=== PATIENT | female | born 1995 | race Caucasian/White ===

== ENCOUNTER → 2017-06-21 13:01 | Outpatient (CLI) | payer MEDICARE, MEDICAID, SELFPAY ==
--- NOTE | 2017-06-21 13:13 | XR_ITS ---
XR foot LT min 3V HISTORY: ITS.REASON: LEFT FOOT PAIN ORDERING PHYSICIAN: Felicia Cox PATIENT AGE: 21 years COMPARISON: None FINDINGS: No fracture or dislocation. No lytic or blastic change. There is normal mineralization.. The joint spaces are well-preserved. No significant degenerative/arthritic changes. No erosive changes evident. IMPRESSION: Negative, no acute finding
== END ==
PROVIDERS: PCP Family Medicine; Visit Provider Nurse Practitioner
DX: M79.672 Pain in left foot (principal)
CPT/HCPCS: 73630

== ENCOUNTER → 2018-04-23 14:34 | Outpatient (CLI) | payer MEDICARE, MEDICAID, SELFPAY ==
--- NOTE | 2018-04-23 14:40 | XR_ITS ---
XR hand RT min 3V HISTORY: Pain and swelling around the first metacarpal ITS.REASON: RT HAND PAIN ORDERING PHYSICIAN: Radha Stratton PATIENT AGE: 22 years COMPARISON: None FINDINGS: There is a faint curvilinear lucency along the dorsal aspect and base of the metacarpal which is probably due to an overlying artifact as it appears to extend beyond the margin of the metacarpal medially. Correlation with patient's area of pain and tenderness needed. No fracture or dislocation. No lytic or blastic change. IMPRESSION: As above, no acute finding
== END ==
PROVIDERS: PCP Nurse Practitioner Family; Visit Provider Nurse Practitioner Family
DX: M79.641 Pain in right hand (principal)
CPT/HCPCS: 73130

== ENCOUNTER → 2018-10-28 15:24 | Outpatient (POV) | payer MEDICARE, MEDICAID, SELFPAY | PROVIDERS: Visit Provider Dermatology | DX: Z00.00 Encounter for general adult medical examination without abnormal findings (principal) ==

== ENCOUNTER → 2019-01-30 09:35 | Outpatient (CLI) | payer MEDICARE, MEDICAID, SELFPAY ==
[2019-01-30 10:44] LABS: Basophils # 0.1 K/mm3 (0-0.2); Basophils % 0.5 % (0.1-2.0); Eosinophils # 0.3 K/mm3 (0.0-0.4); Eosinophils % 3.2 % (0.1-12.0); Hematocrit 31.1 % (37.0-47.0); Hemoglobin 9.1 g/dL (12.2-16.2); Lymphocytes # 3.5 K/mm3 (0.7-4.5); Lymphocytes % 35.2 % (10-50); Mean Corpuscular HGB Conc 29.1 g/dL (31.8-35.4); Mean Corpuscular Hemoglobin 20.1 pg (27.0-31.2); Mean Platelet Volume 7.2 fl (7.4-10.4); Monocytes # 0.7 K/mm3 (0.1-1.0); Neutrophils # 5.3 K/mm3 (1.8-7.8); Neutrophils % 54.1 % (37.0-80.0); Platelet Count 469 K/mm3 (142-424); Red Blood Count 4.51 M/mm3 (4.20-5.40); Red Cell Distribution Width 16.9 % (11.5-17.5); White Blood Count 9.8 K/mm3 (4.8-10.8)
[2019-01-30 11:39] LABS: Alanine Aminotransferase 18 U/L (12-78); Albumin Level 3.3 gm/dL (3.4-5.0); Albumin/Globulin Ratio 0.8 (1.1-1.8); Alkaline Phosphatase 117 U/L (46-116); Anion Gap 11.3 mEq/L (5-15); Aspartate Amino Transferase 3 U/L (15-37); Bilirubin,Total 0.2 mg/dL (0.2-1.0); Blood Urea Nitrogen 14 mg/dL (7-18); Calcium 9.1 mg/dL (8.5-10.1); Carbon Dioxide 28 mmol/L (21.0-32.0); Chloride 105 mmol/L (98-107); Chol/HDL Ratio 3.4 (1-3.5); Cholesterol 143 mg/dL (140-200); Creatinine,Serum 0.76 mg/dL (0.55-1.02); Estimated Glomerular Filt Rate 93 ml/min (>60); GFR (African American) 112 ML/MIN (>60); Globulin 3.9 gm/dl (1.3-3.2); Glucose 90 mg/dL (74-106); HDL Cholesterol 42 mg/dL (29-89); LDL Cholesterol 86 mg/dL (0-130); Potassium 4.3 mmoL/L (3.5-5.1); Sodium 140 mmol/L (136-145); Thyroid Stimulating Hormone 2.95 uIU/ml (0.358-3.740); Total Protein,Serum 7.2 gm/dL (6.4-8.2); Triglycerides 73 mg/dL (30-200); VLDL Cholesterol 15 mg/dL (0-40)
[2019-01-30 13:28] LABS: Hemoglobin A1C 5.8 % (0.0-7.0)
== END ==
PROVIDERS: Visit Provider Psychiatry & Neurology Psychiatry
DX: F41.1 Generalized anxiety disorder (principal); Z79.899 Other long term (current) drug therapy
CPT/HCPCS: 36415; 80053; 80061; 83036; 84443; 85025

== ENCOUNTER → 2019-10-12 09:07 | Outpatient (CLI) | payer MEDICARE, OTHER, SELFPAY ==
--- NOTE | 2019-10-12 09:22 | US_ITS ---
PROCEDURE: US ABDOMEN LIMITED CLINICAL INDICATION: ABD PAIN Right upper quadrant pain COMPARISON: No exams were available for comparison FINDINGS: PANCREAS: Pancreas is not well delineated due to overlying bowel gas. CT or MRI without and with contrast with pancreatic protocol may provide further evaluation if clinically desired. LIVER: No focal liver lesions demonstrated. Homogeneous echogenicity. No intrahepatic biliary ductal dilatation evident. There is appropriate direction of blood flow within a non dilated portal vein RIGHT KIDNEY: Unremarkable. Normal size and echogenicity. No hydronephrosis GALLBLADDER: No gallstones, gallbladder wall thickening, pericholecystic fluid, or biliary dilatation. IMPRESSION: Poor visualization of the pancreas otherwise negative right upper quadrant ultrasound Dictated by: Hi Nava MD 10/12/2019 18:58 Electronically signed by Hi Nava MD in [place] 10/12/2019 18:58
== END ==
PROVIDERS: PCP Nurse Practitioner; Visit Provider Nurse Practitioner Family
DX: R10.11 Right upper quadrant pain (principal); G47.33 Obstructive sleep apnea (adult) (pediatric); R40.0 Somnolence; R51 Headache; G47.00 Insomnia, unspecified; E66.9 Obesity, unspecified
CPT/HCPCS: 76705; G0399

== ENCOUNTER → 2019-11-19 11:13 | Outpatient (CLI) | payer MEDICARE, OTHER, SELFPAY ==
[2019-11-19 11:46] LABS: Basophils # 0.1 K/mm3 (0-0.2); Basophils % 0.6 % (0.1-2.0); Eosinophils # 0.2 K/mm3 (0.0-0.4); Eosinophils % 1.7 % (0.1-12.0); Hematocrit 33.4 % (37.0-47.0); Hemoglobin 10.4 g/dL (12.2-16.2); Lymphocytes # 3.7 K/mm3 (0.7-4.5); Lymphocytes % 29.9 % (10-50); Mean Corpuscular HGB Conc 31.2 g/dL (31.8-35.4); Mean Corpuscular Hemoglobin 22.5 pg (27.0-31.2); Mean Platelet Volume 6.9 fl (7.4-10.4); Monocytes # 0.6 K/mm3 (0.1-1.0); Monocytes % 4.5 % (1.7-9.3); Neutrophils # 7.9 K/mm3 (1.8-7.8); Neutrophils % 63.3 % (37.0-80.0); Platelet Count 480 K/mm3 (142-424); Red Blood Count 4.64 M/mm3 (4.20-5.40); Red Cell Distribution Width 17.4 % (11.5-17.5); White Blood Count 12.5 K/mm3 (4.8-10.8)
[2019-11-19 12:17] LABS: Chloride 102 mmol/L (98-107); Potassium 4.9 mmoL/L (3.5-5.1); Sodium 137 mmol/L (136-145)
[2019-11-19 12:19] LABS: Alanine Aminotransferase 21 U/L (12-78); Alkaline Phosphatase 117 U/L (38-126); Aspartate Amino Transferase 20 U/L (14-36); Bilirubin,Total 0.3 mg/dl (0.2-1.3); Blood Urea Nitrogen 17 mg/dl (7-17); Estimated Glomerular Filt Rate 101 ml/min (>60); GFR (African American) 122 ML/MIN (>60)
[2019-11-19 12:20] LABS: Albumin Level 3.8 g/dl (3.5-5.0); Albumin/Globulin Ratio 1.2 (1.1-1.8); Anion Gap 12.9 mEq/L (5-15); Calcium 9.1 mg/dl (8.4-10.2); Carbon Dioxide 27 mmol/L (22.0-30.0); Globulin 3.3 g/dL (1.3-3.2); Glucose 95 mg/dl (74-100); Iron 30 ug/dL (37-170); Total Protein,Serum 7.1 g/dl (6.3-8.2)
[2019-11-19 12:28] LABS: Total Iron Binding Capacity 465 ug/dL (265-497)
[2019-11-19 12:56] LABS: Ferritin 6.07 ng/ml (6.24-137)
== END ==
PROVIDERS: Visit Provider Internal Medicine Medical Oncology
DX: D50.0 Iron deficiency anemia secondary to blood loss (chronic) (principal)
CPT/HCPCS: 36415; 80053; 82728; 83540; 83550; 85025

== ENCOUNTER 2019-12-02 13:00 | Outpatient (CLI) | payer MEDICARE, OTHER, SELFPAY ==
[2019-12-02 13:27] VITALS: BP 140/92; PULSE 91; RESP 18; TEMP 36.6; O2SAT 98
[2019-12-02 14:06] VITALS: BP 136/80; PULSE 80; RESP 18; O2SAT 97
== END 2019-12-02 14:06 | disposition home or self-care (01) ==
LOC: INF 13:00
PROVIDERS: Visit Provider Internal Medicine Medical Oncology
DX: D50.9 Iron deficiency anemia, unspecified (principal)
CPT/HCPCS: 96365; J1439

== ENCOUNTER 2019-12-09 13:15 | Outpatient (CLI) | payer MEDICARE, OTHER, SELFPAY ==
[2019-12-09 13:43] VITALS: BP 122/66; PULSE 84; RESP 18; TEMP 36.7; O2SAT 99
[2019-12-09 14:15] VITALS: BP 119/72; PULSE 85; RESP 18
== END 2019-12-09 14:25 | disposition home or self-care (01) ==
LOC: INF 13:23
PROVIDERS: Visit Provider Internal Medicine Medical Oncology
DX: D64.9 Anemia, unspecified (principal)
CPT/HCPCS: 96365; J1439

== ENCOUNTER → 2020-02-11 13:58 | Outpatient (CLI) | payer MEDICARE, OTHER, SELFPAY ==
[2020-02-11 14:28] LABS: Basophils # 0.1 K/mm3 (0-0.2); Basophils % 0.6 % (0.1-2.0); Eosinophils # 0.3 K/mm3 (0.0-0.4); Eosinophils % 2.2 % (0.1-12.0); Hematocrit 41.4 % (37.0-47.0); Hemoglobin 13.2 g/dL (12.2-16.2); Lymphocytes # 3.2 K/mm3 (0.7-4.5); Lymphocytes % 27.4 % (10-50); Mean Corpuscular Hemoglobin 27.3 pg (27.0-31.2); Mean Corpuscular Volume 85.4 fl (81-99); Mean Platelet Volume 7.1 fl (7.4-10.4); Monocytes % 8.3 % (1.7-9.3); Neutrophils # 7.1 K/mm3 (1.8-7.8); Neutrophils % 61.5 % (37.0-80.0); Platelet Count 340 K/mm3 (142-424); Red Blood Count 4.84 M/mm3 (4.20-5.40); Red Cell Distribution Width 18.1 % (11.5-17.5); White Blood Count 11.6 K/mm3 (4.8-10.8)
[2020-02-11 15:37] LABS: Chloride 104 mmol/L (98-107)
[2020-02-11 15:38] LABS: Potassium 3.7 mmoL/L (3.5-5.1); Sodium 140 mmol/L (136-145)
[2020-02-11 15:40] LABS: Alanine Aminotransferase 24 U/L (12-78); Aspartate Amino Transferase 23 U/L (14-36); Blood Urea Nitrogen 14 mg/dl (7-17); Estimated Glomerular Filt Rate 121 ml/min (>60); GFR (African American) 146 ML/MIN (>60)
[2020-02-11 15:41] LABS: Albumin/Globulin Ratio 1.3 (1.1-1.8); Alkaline Phosphatase 100 U/L (38-126); Anion Gap 12.7 mEq/L (5-15); Bilirubin,Total 0.3 mg/dl (0.2-1.3); Calcium 9.6 mg/dl (8.4-10.2); Carbon Dioxide 27 mmol/L (22.0-30.0); Globulin 3.2 g/dL (1.3-3.2); Glucose 111 mg/dl (74-100); Iron 91 ug/dL (37-170); Total Protein,Serum 7.2 g/dl (6.3-8.2)
[2020-02-11 16:01] LABS: Total Iron Binding Capacity 305 ug/dL (265-497)
[2020-02-11 16:19] LABS: Ferritin 226 ng/ml (6.24-137)
== END ==
PROVIDERS: Visit Provider Internal Medicine Medical Oncology
DX: D50.9 Iron deficiency anemia, unspecified (principal)
CPT/HCPCS: 36415; 80053; 82728; 83540; 83550; 85025

== ENCOUNTER 2020-06-26 19:12 | Emergency (ER) | payer MEDICARE, OTHER, SELFPAY ==
[2020-06-26 19:13] VITALS: BP 160/80; PULSE 130; RESP 16; TEMP 37; O2SAT 97; BMI 45.7
[2020-06-26 19:30] VITALS: BP 148/90; PULSE 118; RESP 17; O2SAT 98
[2020-06-26 19:44] LABS: Microscopic, Urine URINE MICROSCOPIC (MICROSCOPIC)
[2020-06-26 19:45] LABS: Basophils # 0.1 K/mm3 (0-0.2); Basophils % 0.4 % (0.1-2.0); Eosinophils # 0.3 K/mm3 (0.0-0.4); Eosinophils % 1.9 % (0.1-12.0); Hematocrit 35.7 % (37.0-47.0); Hemoglobin 11.1 g/dL (12.2-16.2); Lymphocytes # 4.1 K/mm3 (0.7-4.5); Mean Corpuscular HGB Conc 31.2 g/dL (31.8-35.4); Mean Corpuscular Hemoglobin 26.3 pg (27.0-31.2); Mean Corpuscular Volume 84.5 fl (81-99); Monocytes # 0.7 K/mm3 (0.1-1.0); Monocytes % 4.8 % (1.7-9.3); Neutrophils # 9.9 K/mm3 (1.8-7.8); Neutrophils % 65.9 % (37.0-80.0); Platelet Count 423 K/mm3 (142-424); Red Blood Count 4.23 M/mm3 (4.20-5.40); Red Cell Distribution Width 13.7 % (11.5-17.5); White Blood Count 15.1 K/mm3 (4.8-10.8)
[2020-06-26 19:46] LABS: Chloride 109 mmol/L (98-107); Potassium 3.7 mmoL/L (3.5-5.1); Sodium 141 mmol/L (136-145)
[2020-06-26 19:48] LABS: MANUAL DIFFERENTIAL MANUAL DIFFERENTIAL (MANUAL DIFF)
[2020-06-26 19:49] LABS: Alanine Aminotransferase 23 U/L (12-78); Albumin Level 4.2 g/dl (3.5-5.0); Albumin/Globulin Ratio 1.1 (1.1-1.8); Alkaline Phosphatase 116 U/L (38-126); Anion Gap 9.7 mEq/L (5-15); Aspartate Amino Transferase 30 U/L (14-36); Bilirubin,Total 0.5 mg/dl (0.2-1.3); Blood Urea Nitrogen 14 mg/dl (7-17); Carbon Dioxide 26 mmol/L (22.0-30.0); Creatinine Clearance Estimated 84 mL/min (50-200); Estimated Glomerular Filt Rate 87 ml/min (>60); GFR (African American) 105 ML/MIN (>60); Globulin 3.9 g/dL (1.3-3.2); Total Protein,Serum 8.1 g/dl (6.3-8.2)
[2020-06-26 19:50] LABS: Appearance,Urine CLOUDY (Clear); Bilirubin,Urine Negative (Negative); Blood, Urine 3+ (Negative); Calcium 9.6 mg/dl (8.4-10.2); Color,Urine RED (Yellow); Glucose 123 mg/dl (74-100); Glucose,Urine (UA) Negative (Negative); Ketones,Urine Negative (Negative); Leukocyte Esterase,Urine Negative (Negative); Nitrate,Urine Negative (Negative); Protein,Urine 1+ (Negative); Specific Gravity, Urine >= 1.030 (1.005-1.030); Urobilinogen,Urine 0.2 EU/dl (0.2)
[2020-06-26 19:51] LABS: RBC,Urine TNTC #/hpf (0-3); Urine Pregnancy, HCG Qual. Negative (Negative)
[2020-06-26 19:55] LABS: C-Reactive Protein 24.3 mg/L (0-4)
[2020-06-26 19:58] LABS: Eosinophils % 1 % (0-3); Hypochromasia 1+; Lymphocytes % 26 % (10-50); Monocytes % 5 % (2-9); Neutrophils % 67 % (42-76); Platelet Estimate Normal; Total Cells Counted 100
[2020-06-26 20:00] VITALS: BP 138/92; PULSE 112; RESP 15; O2SAT 99
[2020-06-26 20:08] LABS: Procalcitonin 0.043 ng/mL (0.0-2.0)
[2020-06-26 20:09] LABS: Erythrocyte Sedimentation Rate 111 mm/hr (0-20)
--- NOTE | 2020-06-26 20:09 | HMH.EDUROGF ---
ED Disposition Clinical Impression: Dysfunctional uterine bleeding Disposition: Home, Self-Care Condition on Discharge: Good Instructions: DI for Vaginal Bleeding Additional Instructions: call pcp and dr mcbride for follow up Referrals: Christiane Felix APRN [Primary Care Provider] - Jagdish Mcbride MD [Staff Physician] - - Critical Care Critical Care Time: No Attestation: On 06/26/20, the high probability of a clinically significant, sudden or life threatening deterioration of the following system(s) required my full and direct attention, intervention and personal management. The time I documented below is in addition to time spent performing reported procedures but includes the following listed in this critical care notation. Medical Decision Making - Medical Records Medical records reviewed: Yes: I reviewed the patient's medical records. - Luis Alberto Inquiry Pt receiving controlled substance: No Vital Signs: 06/26/20 19:13 06/26/20 19:30 06/26/20 20:00 Temperature 98.6 F Temperature Source Oral Pulse Rate [Right] 130 H 118 H 112 H Respiratory Rate 16 17 15 Blood Pressure [Orthostatic Lying] Blood Pressure [Orthostatic Sitting] Blood Pressure [Orthostatic Standing] Blood Pressure [Right Arm] 160/80 H 148/90 H 138/92 H Blood Pressure Mean [Right Arm] 106 109 107 Blood Pressure Source [Right Arm] Manual Cuff/ Auscultation Manual Cuff/ Auscultation Manual Cuff/ Auscultation Blood Pressure Position [Right Arm] Supine Supine 02 Sat by Pulse Oximetry 97 98 99 Oxygen Delivery Method Room Air Room Air 06/26/20 20:22 Temperature Temperature Source Pulse Rate [Right] Respiratory Rate Blood Pressure [Orthostatic Lying] 142/90 H Blood Pressure [Orthostatic Sitting] 138/94 H Blood Pressure [Orthostatic Standing] 130/92 H Blood Pressure [Right Arm] Blood Pressure Mean [Right Arm] Blood Pressure Source [Right Arm] Blood Pressure Position [Right Arm] 02 Sat by Pulse Oximetry Oxygen Delivery Method - Lab Data Lab results reviewed: Yes: I reviewed the patient's lab results. Lab Results 06/26/20 19:25: WBC 15.1 H, RBC 4.23, Hgb 11.1 L, Hct 35.7 L, MCV 84.5, MCH 26.3 L, MCHC 31.2 L, RDW 13.7, Plt Count 423, MPV 7.0 L, Neut % (Auto) 65.9, Lymph % (Auto) 27.0, Mower % (Auto) 4.8, Eos % (Auto) 1.9, Baso % (Auto) 0.4, Neut # (Auto) 9.9 H, Lymph # (Auto) 4.1, Mower # (Auto) 0.7, Eos # (Auto) 0.3, Baso # (Auto) 0.1, Total Counted 100, Neutrophils % (Manual) 67, Band Neutrophils % 1.0, Lymphocytes % (Manual) 26, Monocytes % (Manual) 5, Eosinophils % (Manual) 1, Platelet Estimate Normal, Hypochromasia 1+ 06/26/20 19:25: Sodium 141, Potassium 3.7, Chloride 109 H, Carbon Dioxide 26, Anion Gap 9.7, BUN 14, Creatinine 0.80, Estimated Creat Clear 84, Estimated GFR 87, Est GFR ( Amer) 105, Glucose 123 H, Calcium 9.6, Total Bilirubin 0.5, AST 30, ALT 23, Alkaline Phosphatase 116, C-Reactive Protein 24.3 H, Total Protein 8.1, Albumin 4.2, Globulin 3.9 H, Albumin/Globulin Ratio 1.1 06/26/20 19:25: Urine Color Red, Urine Appearance Cloudy, Urine pH 6.0, Ur Specific [place] >= 1.030, Urine Protein 1+, Urine Glucose (UA) Negative, Urine Ketones Negative, Urine Blood 3+, Urine Nitrate Negative, Urine Bilirubin Negative, Urine Urobilinogen 0.2, Ur Leukocyte Esterase Negative, Urine RBC Tntc, Urine WBC 3-5, Ur Squamous Epith Cells 3-5 06/26/20 19:25: ESR 111 H 06/26/20 19:25: Urine HCG, Qual Negative 06/26/20 19:25: Procalcitonin 0.043 Result diagrams: 06/26/20 19:25 06/26/20 19:25 Orders (Tests/Meds): ORDERS Category Date Time Status CT abdomen pelvis wo con Stat Cat Scan 06/26/20 20:14 Taken - CT Data CT Scan: Abdomen, Pelvis Time Received: 21:[address] Reviewed: Yes: I have viewed the radiologist's interpretation Preliminary Findings: Normal/NAD - Reevaluation(s) Time: 21:48 Reevaluation #1: doing ok Medical Decision Narrative: call dr mcbride and cabrera compliant with meds Female
--- NOTE | 2020-06-26 20:14 | CT_ITS ---
PROCEDURE: CT ABDOMEN PELVIS WO CON CLINICAL INDICATION: vaginal bleeding Heavy vaginal bleeding COMPARISON: CT ABDPELW CT ABD PELVIS W/ CONTRAST from 04/02/2015 TECHNIQUE: Axial images obtained with sagittal and coronal reformats. All CT scans at the facility use one or more dose reduction, viz: automated exposure control, ma/kV adjustment per patient size (including targeted exams where dose is matched to indication, i.e. head), or iterative reconstruction technique. FINDINGS: LOWER THORAX: No acute finding ABDOMEN & PELVIS: The liver, spleen, adrenal glands, pancreas, kidneys and gallbladder have an unremarkable CT appearance. Prior appendectomy. No intestinal obstruction or free air. There is asymmetrical enlargement of the right ovary which measures 3.6 cm possibly due to underlying ovarian cyst. Pelvic ultrasound may confirm. No abnormal fluid collections. Scattered small nodes are present in the inguinal regions. No acute bony findings. IMPRESSION: 1. No acute finding. 2. Asymmetrical enlargement of the right ovary. Pelvic ultrasound may provide further evaluation. Dictated by: Hi Nava MD 06/27/2020 08:59 Hi Nava MD in [place] 06/27/2020 08:59
[2020-06-26 20:22] VITALS: BP 130/92; BP 138/94; BP 142/90
[2020-06-26 21:55] VITALS: BP 138/78; PULSE 110; RESP 14; TEMP 37.1; O2SAT 97
== END 2020-06-26 21:58 | disposition home or self-care (01) ==
PROVIDERS: Emergency Provider Emergency Medicine; PCP Nurse Practitioner Family
DX: N93.8 Other specified abnormal uterine and vaginal bleeding (principal); D64.9 Anemia, unspecified; Z79.899 Other long term (current) drug therapy
CPT/HCPCS: 74176; 80053; 81001; 81025; 84145; 85007; 85025; 85651; 86140; 99284

== ENCOUNTER → 2020-07-05 10:25 | Outpatient (CLI) | payer MEDICARE, OTHER, SELFPAY ==
--- NOTE | 2020-07-05 10:29 | US_ITS ---
PROCEDURE: US TRANSVAGINAL CLINICAL INDICATION: ABN UTERINE BLEEDING COMPARISON: No exams were available for comparison FINDINGS: UTERUS: 9cm x 6cmx 5cm with a combined endometrial thickness of 4.9mm LEFT OVARY: 1kig1pkh6.4cm with a volume of 2.4ml. RIGHT OVARY: [id number] with a volume of 34.2ml. There is a 4 cm right ovarian cyst which has benign features. No cul-de-sac fluid. IMPRESSION: 4 cm right follicular ovarian cyst Dictated by: Hi Nava MD 07/05/2020 18:00 Hi Nava MD in [place] 07/05/2020 18:00
== END ==
PROVIDERS: PCP Nurse Practitioner Family; Visit Provider Nurse Practitioner Family
DX: N93.8 Other specified abnormal uterine and vaginal bleeding (principal)
CPT/HCPCS: 76830

== ENCOUNTER → 2020-08-15 15:49 | Outpatient (CLI) | payer MEDICARE, OTHER, SELFPAY ==
[2020-08-15 16:19] LABS: Basophils # 0.1 K/mm3 (0-0.2); Basophils % 0.5 % (0.1-2.0); Eosinophils # 0.3 K/mm3 (0.0-0.4); Eosinophils % 2.4 % (0.1-12.0); Hematocrit 28.7 % (37.0-47.0); Hemoglobin 8.7 g/dL (12.2-16.2); Lymphocytes # 3.5 K/mm3 (0.7-4.5); Lymphocytes % 30.4 % (10-50); Mean Corpuscular HGB Conc 30.1 g/dL (31.8-35.4); Mean Corpuscular Hemoglobin 21.1 pg (27.0-31.2); Mean Platelet Volume 6.8 fl (7.4-10.4); Monocytes # 0.6 K/mm3 (0.1-1.0); Monocytes % 5.2 % (1.7-9.3); Neutrophils # 7.1 K/mm3 (1.8-7.8); Neutrophils % 61.6 % (37.0-80.0); Platelet Count 598 K/mm3 (142-424); Red Cell Distribution Width 16.4 % (11.5-17.5); White Blood Count 11.5 K/mm3 (4.8-10.8)
[2020-08-15 17:27] LABS: Iron 25 ug/dL (37-170)
[2020-08-15 17:35] LABS: Total Iron Binding Capacity 457 ug/dL (265-497)
[2020-08-15 18:01] LABS: Ferritin 5.88 ng/ml (6.24-137)
== END ==
PROVIDERS: Visit Provider Internal Medicine Medical Oncology
DX: E61.1 Iron deficiency (principal)
CPT/HCPCS: 36415; 82728; 83540; 83550; 85025

== ENCOUNTER 2020-08-24 13:27 | Outpatient (CLI) | payer MEDICARE, OTHER, SELFPAY ==
[2020-08-24 13:39] VITALS: BP 129/74; PULSE 84; RESP 16; TEMP 36.7; O2SAT 100
[2020-08-24 14:20] VITALS: BP 123/76; PULSE 86; RESP 16; TEMP 36.8; O2SAT 100
== END 2020-08-24 14:25 | disposition home or self-care (01) ==
LOC: INF 13:27
PROVIDERS: Visit Provider Internal Medicine Medical Oncology
DX: D50.9 Iron deficiency anemia, unspecified (principal)
CPT/HCPCS: 96365; J1439

== ENCOUNTER 2020-08-31 13:00 | Outpatient (CLI) | payer MEDICARE, OTHER, SELFPAY ==
[2020-08-31 13:26] VITALS: BP 142/81; PULSE 81; RESP 17; TEMP 36.8; O2SAT 98
[2020-08-31 14:37] VITALS: BP 137/76; PULSE 83; O2SAT 97
== END 2020-08-31 14:41 | disposition home or self-care (01) ==
LOC: INF 13:00
PROVIDERS: Visit Provider Internal Medicine Medical Oncology
DX: N92.4 Excessive bleeding in the premenopausal period (principal); D50.0 Iron deficiency anemia secondary to blood loss (chronic)
CPT/HCPCS: 96365; J1439

== ENCOUNTER → 2020-10-24 14:11 | Outpatient (CLI) | payer MEDICARE, OTHER, SELFPAY ==
[2020-10-24 15:03] LABS: Basophils % 0.6 % (0.1-2.0); Eosinophils # 0.3 K/mm3 (0.0-0.4); Eosinophils % 3.2 % (0.1-12.0); Hematocrit 27.1 % (37.0-47.0); Hemoglobin 8.5 g/dL (12.2-16.2); Lymphocytes # 2.2 K/mm3 (0.7-4.5); Lymphocytes % 27.8 % (10-50); Mean Corpuscular HGB Conc 31.2 g/dL (31.8-35.4); Mean Corpuscular Hemoglobin 24.8 pg (27.0-31.2); Mean Corpuscular Volume 79.5 fl (81-99); Mean Platelet Volume 7.7 fl (7.4-10.4); Monocytes # 0.4 K/mm3 (0.1-1.0); Monocytes % 5.5 % (1.7-9.3); Platelet Count 565 K/mm3 (142-424); Red Blood Count 3.41 M/mm3 (4.20-5.40); Red Cell Distribution Width 19.8 % (11.5-17.5); White Blood Count 7.9 K/mm3 (4.8-10.8)
[2020-10-24 15:10] LABS: Chloride 108 mmol/L (98-107); Potassium 4.3 mmoL/L (3.5-5.1); Sodium 140 mmol/L (136-145)
[2020-10-24 15:13] LABS: Alanine Aminotransferase 25 U/L (12-78); Albumin Level 4.1 g/dl (3.5-5.0); Albumin/Globulin Ratio 1.4 (1.1-1.8); Alkaline Phosphatase 119 U/L (38-126); Anion Gap 13.3 mEq/L (5-15); Aspartate Amino Transferase 29 U/L (14-36); Bilirubin,Total 0.4 mg/dl (0.2-1.3); Blood Urea Nitrogen 11 mg/dl (7-17); Calcium 9.6 mg/dl (8.4-10.2); Carbon Dioxide 23 mmol/L (22.0-30.0); Estimated Glomerular Filt Rate 120 ml/min (>60); GFR (African American) 145 ML/MIN (>60); Glucose 144 mg/dl (74-100); Iron 31 ug/dL (37-170); Total Protein,Serum 7.1 g/dl (6.3-8.2)
[2020-10-24 15:23] LABS: Total Iron Binding Capacity 418 ug/dL (265-497)
[2020-10-27 13:44] LABS: Ferritin 23.4 ng/ml (6.24-137)
== END ==
PROVIDERS: Visit Provider Internal Medicine Medical Oncology
DX: D50.0 Iron deficiency anemia secondary to blood loss (chronic) (principal)
CPT/HCPCS: 36415; 80053; 82728; 83540; 83550; 85025

== ENCOUNTER 2020-11-07 13:27 | Outpatient (CLI) | payer MEDICARE, OTHER, SELFPAY ==
[2020-11-07 14:00] VITALS: BP 154/95; PULSE 88; RESP 18; TEMP 36.6
[2020-11-07 14:32] VITALS: BP 138/81; PULSE 83; RESP 18
== END 2020-11-07 14:38 | disposition home or self-care (01) ==
LOC: INF 13:27
PROVIDERS: Visit Provider Internal Medicine Medical Oncology
DX: D50.0 Iron deficiency anemia secondary to blood loss (chronic) (principal)
CPT/HCPCS: 96365; J1439

== ENCOUNTER 2020-11-18 13:36 | Outpatient (CLI) | payer MEDICARE, OTHER, SELFPAY ==
[2020-11-18 13:51] VITALS: BP 120/67; PULSE 66; RESP 17; O2SAT 100
[2020-11-18 14:48] VITALS: BP 125/61; PULSE 61; RESP 17; O2SAT 100
== END 2020-11-18 14:50 | disposition home or self-care (01) ==
LOC: INF 13:42
PROVIDERS: Visit Provider Internal Medicine Medical Oncology
DX: D50.9 Iron deficiency anemia, unspecified (principal); D50.0 Iron deficiency anemia secondary to blood loss (chronic)
CPT/HCPCS: 96365; J1439

== ENCOUNTER → 2020-12-15 12:19 | Outpatient (CLI) | payer MEDICARE, OTHER, SELFPAY ==
[2020-12-15 12:40] LABS: Basophils # 0.1 K/mm3 (0-0.2); Basophils % 0.7 % (0.1-2.0); Eosinophils # 0.4 K/mm3 (0.0-0.4); Eosinophils % 3.5 % (0.1-12.0); Hematocrit 37.9 % (37.0-47.0); Hemoglobin 12.8 g/dL (12.2-16.2); Lymphocytes # 2.9 K/mm3 (0.7-4.5); Lymphocytes % 25.1 % (10-50); Mean Corpuscular HGB Conc 33.7 g/dL (31.8-35.4); Mean Corpuscular Hemoglobin 26.6 pg (27.0-31.2); Mean Corpuscular Volume 78.8 fl (81-99); Mean Platelet Volume 7.1 fl (7.4-10.4); Monocytes # 0.5 K/mm3 (0.1-1.0); Monocytes % 4.1 % (1.7-9.3); Neutrophils # 7.6 K/mm3 (1.8-7.8); Neutrophils % 66.5 % (37.0-80.0); Platelet Count 368 K/mm3 (142-424); Red Blood Count 4.82 M/mm3 (4.20-5.40); White Blood Count 11.4 K/mm3 (4.8-10.8)
[2020-12-15 13:41] LABS: Iron 69 ug/dL (37-170)
[2020-12-15 13:50] LABS: Total Iron Binding Capacity 291 ug/dL (265-497)
[2020-12-15 14:16] LABS: Ferritin 257 ng/ml (6.24-137)
== END ==
PROVIDERS: Visit Provider Internal Medicine Medical Oncology
DX: D50.0 Iron deficiency anemia secondary to blood loss (chronic) (principal)
CPT/HCPCS: 36415; 82728; 83540; 83550; 85025

== ENCOUNTER → 2022-03-23 12:20 | Outpatient (CLI) | payer MEDICARE, OTHER, SELFPAY ==
--- NOTE | 2022-03-23 12:30 | XR_ITS ---
FINAL REPORT CLINICAL HISTORY: LUMBAGO W/JAIME SCIATICA, no injury FINDINGS: LUMBAR SPINE Five views were obtained. There is no acute fracture. There is no malalignment. The disc spaces are preserved. There is no soft tissue abnormality. IMPRESSION: No acute bony abnormality. Reviewed, Interpreted and Dictated by Will De Guzman MD Transcribed by Elis Botello Authenticated and . [facility]
[2022-03-23 14:28] LABS: Hemoglobin A1C 5.6 % (4.0-6.0)
[2022-03-23 15:01] LABS: Alanine Aminotransferase 18 U/L (12-78); Albumin/Globulin Ratio 1.3 (1.1-1.8); Alkaline Phosphatase 141 U/L (38-126); Anion Gap 13.5 mEq/L (5-15); Aspartate Amino Transferase 21 U/L (14-36); Bilirubin,Total 0.3 mg/dl (0.2-1.3); Blood Urea Nitrogen 16 mg/dl (7-17); Calcium 9.7 mg/dl (8.4-10.2); Carbon Dioxide 30 mmol/L (22.0-30.0); Chloride 102 mmol/L (98-107); Cholesterol 191 mg/dl (140-200); Estimated Glomerular Filt Rate 85 ml/min (>60); GFR (African American) 103 ML/MIN (>60); Glucose 90 mg/dl (74-100); HDL Cholesterol 38 mg/dl (40-60); Potassium 4.5 mmoL/L (3.5-5.1); Sodium 141 mmol/L (136-145); Triglycerides 125 mg/dl (30-150); VLDL Cholesterol 25 mg/dL (0-40)
[2022-03-23 15:12] LABS: Direct LDL Cholesterol 109.44 mg/dL (100-129)
[2022-03-23 15:18] LABS: Free T4 (Free Thyroxine) 1.06 ng/dl (0.78-2.19)
[2022-03-23 15:32] LABS: Thyroid Stimulating Hormone 1.26 uIU/mL (0.465-4.68)
[2022-03-25 07:29] LABS: Triiodothyronine (T3) Free 3.1 pg/mL (2.0-4.4)
== END ==
PROVIDERS: PCP Nurse Practitioner Family; Visit Provider Nurse Practitioner Family
DX: R73.9 Hyperglycemia, unspecified (principal); E78.2 Mixed hyperlipidemia; R63.5 Abnormal weight gain; Z68.42 Body mass index [BMI] 45.0-49.9, adult; M54.42 Lumbago with sciatica, left side; M54.41 Lumbago with sciatica, right side
CPT/HCPCS: 36415; 72110; 80053; 80061; 83036; 84439; 84443; 84481

== ENCOUNTER 2022-04-11 13:51 | Outpatient (RCR) | payer MEDICARE, OTHER, SELFPAY | END 2022-04-11 13:55 | disposition home or self-care (01) | LOC: PT 13:51 | PROVIDERS: PCP Nurse Practitioner Family; Visit Provider Nurse Practitioner Family | DX: M54.42 Lumbago with sciatica, left side (principal) | CPT/HCPCS: 97163 ==

== ENCOUNTER → 2022-08-27 15:59 | Outpatient (CLI) | payer MEDICARE, OTHER, SELFPAY ==
--- NOTE | 2022-08-27 16:08 | XR_ITS ---
PROCEDURE INFORMATION: Exam: XR Entire Spine Exam date and time: 08/27/2022 4:29 PM Age: 26 years old Clinical indication: Low back pain; Patient HX: Pain along thoracic and lumbar spine area. No known injury. ; Additional info: Back pain left side TECHNIQUE: Imaging protocol: XR of the entire spine. Evaluation for scoliosis or surgical evaluation. Views: 6 or more views. COMPARISON: CR XR LUMBAR SPINE MIN 4V 03/23/2022 12:32 PM FINDINGS: Bones/joints: The cervicothoracic junction is not optimally visualized on the lateral view. As seen, vertebral body heights appear preserved. No compression fractures. The pedicles are intact. No significant degenerative changes involve the visualized thoracolumbar spine. No significant scoliosis is identified. There is no evidence of acute fracture. There is very slight retrolisthesis of L5 on S1. There is also a mild decrease in normal lumbar lordotic curvature. No spondylitic defects. Visualized sacroiliac joints appear intact. Lungs: Lung volumes are diminished. The lungs appear clear. No focal areas of consolidation. Pleural spaces: No pleural effusions. Negative for pneumothorax. Heart/Mediastinum: Cardiac silhouette and pulmonary vasculature are within range of normal. Soft tissues: Paraspinal soft tissues are within range of normal. Visualized bowel gas pattern is within range of normal. IMPRESSION: 1. No significant scoliosis. 2. No significant degenerative changes. 3. Trace retrolisthesis of L5 on S1 without spondylitic defects.
== END ==
PROVIDERS: PCP Nurse Practitioner Family; Visit Provider Nurse Practitioner Family
DX: M54.6 Pain in thoracic spine (principal); M54.42 Lumbago with sciatica, left side
CPT/HCPCS: 72084

== ENCOUNTER → 2022-09-05 12:51 | Outpatient (CLI) | payer MEDICARE, OTHER, SELFPAY ==
--- NOTE | 2022-09-05 | MR_ITS ---
FINAL REPORT CLINICAL HISTORY: .LOW BACK PAIN INTO RIGHT LEG, NO INJURY FINDINGS: Multiplanar MR imaging of the lumbar spine was performed without contrast. On the sagittal T2-weighted images, abnormal decreased signal is seen at L5-S1. The vertebrae are of normal height. The vertebral alignment is normal. L1-2: There is no significant canal stenosis or neural foraminal narrowing. L2-3: There is no significant canal stenosis or neural foraminal narrowing. L3-4: There is no significant canal stenosis or neural foraminal narrowing. L4-5: There is no significant canal stenosis or neural foraminal narrowing. L5-S1: There is no significant canal stenosis or neural foraminal narrowing. IMPRESSION: Degenerative disc disease at L5-S1 without significant spinal or neural foraminal compromise. Reviewed, Interpreted and Dictated by Will De Guzman MD Transcribed by Shadia Beth Authenticated and [facility]
--- NOTE | 2022-09-05 | MR_ITS ---
FINAL REPORT CLINICAL HISTORY: .LOW BACK PAIN INTO RIGHT LEG, NO INJURY FINDINGS: Multiplanar MR imaging of the thoracic spine was performed without contrast. On the sagittal T2-weighted images, no significant disc degeneration is identified. There is no evidence of fracture. The vertebral alignment is normal. Thoracic cord demonstrates normal signal and configuration. There is no evidence of canal stenosis or cord compression. On the axial images, no focal disc protrusion is identified. There is no evidence of significant canal stenosis. No paraspinous soft tissue abnormality is seen. IMPRESSION: Unremarkable thoracic spine without evidence of acute bony abnormality, disc protrusion or canal stenosis. Reviewed, Interpreted and Dictated by Will De Guzman MD Transcribed by Shadia Beth Authenticated and [facility]
== END ==
PROVIDERS: PCP Nurse Practitioner Family; Visit Provider Nurse Practitioner Family
DX: M54.6 Pain in thoracic spine (principal); M54.42 Lumbago with sciatica, left side
CPT/HCPCS: 72146; 72148; 76376

== ENCOUNTER → 2022-10-26 13:05 | Outpatient (CLI) | payer MEDICARE, OTHER, SELFPAY ==
--- NOTE | 2022-10-26 13:05 | US_ITS ---
PROCEDURE: US TRANSVAGINAL CLINICAL INDICATION: US TV for Irregular Bleeding, check IUD placement COMPARISON: No exams were available for comparison FINDINGS: UTERUS: 9cm x 5cmx 4cm with a combined endometrial thickness of 5.3mm. AN IUD IS NOT PRESENT WITHIN THE ENDOMETRIAL CAVITY. LEFT OVARY: 2fyc3fzw6.8cm with a volume of 4.7ml.The left ovary has a polycystic appearance. RIGHT OVARY: 5cmx 1xev6an with a volume of 25.5ml. There is a follicle on the right ovary measuring 2.7 cm. Both ovaries are seen and appear normal. Doppler flow to both ovaries are seen. There is no fluid in the cul-de-sac. IMPRESSION: 1. The uterus is anteverted and normal in shape and size with an endometrium at 5.3 millimeters. 2. THERE IS NO IUD PRESENT WITHIN THE ENDOMETRIAL CAVITY. 3. The left ovary has a polycystic appearance, the right ovary has a 2.7 centimeter follicle. 4. There is no fluid in the cul-de-sac. Dictated by: Jagdish Mcbride MD 10/27/2022 15:29 Jagdish Mcbride MD in [place] 10/27/2022 15:29
== END ==
PROVIDERS: PCP Nurse Practitioner Family; Visit Provider Nurse Practitioner Obstetrics & Gynecology
DX: N92.6 Irregular menstruation, unspecified (principal); Z87.42 Personal history of other diseases of the female genital tract; Z97.5 Presence of (intrauterine) contraceptive device
CPT/HCPCS: 76830

== ENCOUNTER → 2023-02-14 09:59 | Outpatient (CLI) | payer MEDICARE, OTHER, SELFPAY ==
[2023-02-14 10:21] LABS: Basophils # 0.1 K/mm3 (0-0.2); Basophils % 0.6 % (0.1-2.0); Eosinophils # 0.3 K/mm3 (0.0-0.4); Eosinophils % 2.9 % (0.1-12.0); Hematocrit 31.2 % (37.0-47.0); Hemoglobin 9.7 g/dL (12.2-16.2); Lymphocytes % 26.1 % (10-50); Mean Corpuscular HGB Conc 31.2 g/dL (31.8-35.4); Mean Corpuscular Hemoglobin 19.8 pg (27.0-31.2); Mean Corpuscular Volume 63.3 fl (81-99); Mean Platelet Volume 7.4 fl (7.4-10.4); Monocytes # 0.7 K/mm3 (0.1-1.0); Monocytes % 5.6 % (1.7-9.3); Neutrophils # 7.4 K/mm3 (1.8-7.8); Neutrophils % 64.8 % (37.0-80.0); Platelet Count 538 K/mm3 (142-424); Red Blood Count 4.92 M/mm3 (4.20-5.40); Red Cell Distribution Width 23.5 % (11.5-17.5); White Blood Count 11.5 K/mm3 (4.8-10.8)
[2023-02-14 19:48] LABS: Ferritin 20.2 ng/ml (6.24-137)
[2023-02-14 21:00] LABS: Iron 27 ug/dL (37-170)
[2023-02-14 21:10] LABS: Total Iron Binding Capacity 438 ug/dL (265-497)
== END ==
PROVIDERS: PCP Nurse Practitioner; Visit Provider Internal Medicine Medical Oncology
DX: D50.9 Iron deficiency anemia, unspecified (principal)
CPT/HCPCS: 36415; 82728; 83540; 83550; 85025

== ENCOUNTER 2023-02-19 11:04 | Outpatient (CLI) | payer MEDICARE, OTHER, SELFPAY ==
[2023-02-19 11:22] VITALS: BP 135/75; PULSE 78; RESP 18; TEMP 36.6; O2SAT 96
[2023-02-19] MEDS: IRON SUCROSE COMPLEX 200 MG in 0.9 % SODIUM CHLORIDE 100 ML 220 MG IV (11:22)
[2023-02-19] MEDS: 0.9 % SODIUM CHLORIDE 50 ML IV (11:22)
[2023-02-19 12:05] VITALS: BP 131/71; PULSE 77; RESP 18; O2SAT 97
== END 2023-02-19 12:05 | disposition home or self-care (01) ==
LOC: INF 11:06
PROVIDERS: PCP Nurse Practitioner; Visit Provider Internal Medicine Medical Oncology
DX: N92.0 Excessive and frequent menstruation with regular cycle; D64.9 Anemia, unspecified; T45.4X5A Adverse effect of iron and its compounds, initial encounter; D50.0 Iron deficiency anemia secondary to blood loss (chronic)
CPT/HCPCS: 96365; J1756

== ENCOUNTER 2023-02-26 10:59 | Outpatient (CLI) | payer MEDICARE, OTHER, SELFPAY ==
[2023-02-26 11:23] VITALS: BP 124/89; PULSE 80; RESP 18; TEMP 36.2; O2SAT 100
[2023-02-26] MEDS: IRON SUCROSE COMPLEX 200 MG in 0.9 % SODIUM CHLORIDE 100 ML 220 MG IV (11:23)
[2023-02-26] MEDS: SODIUM CHLORIDE 0.9% 50ML BAG 50 ML IV (11:23)
[2023-02-26 12:13] VITALS: BP 129/78; PULSE 72; RESP 18; O2SAT 100
== END 2023-02-26 12:19 | disposition home or self-care (01) ==
LOC: INF 11:00
PROVIDERS: PCP Nurse Practitioner; Visit Provider Internal Medicine Medical Oncology
DX: N92.0 Excessive and frequent menstruation with regular cycle; D64.9 Anemia, unspecified; D75.838 Other thrombocytosis; T45.4X5A Adverse effect of iron and its compounds, initial encounter; D50.0 Iron deficiency anemia secondary to blood loss (chronic)
CPT/HCPCS: 96365; J1756

== ENCOUNTER 2023-03-02 09:27 | Emergency (ER) | payer MEDICARE, OTHER, SELFPAY ==
[2023-03-02 09:28] VITALS: BP 150/103; PULSE 105; RESP 16; TEMP 36.9; O2SAT 100; BMI 50.3
--- NOTE | 2023-03-02 09:44 | PC.NURSE ---
Dr. Vargas at [facility] for pt eval
[2023-03-02 09:45] VITALS: PULSE 90; O2SAT 100
--- NOTE | 2023-03-02 09:48 | HMH.EDGENADL ---
Discharge Plan Disposition Patient Disposition: Home, Self-Care Prescriptions Prescriptions: New methocarbamol 500 mg tablet 1,000 mg PO Q8H PRN (Reason: Muscle Spasms) Qty: 18 0RF No Action sertraline 50 mg tablet 50 mg PO DAILY buspirone 5 mg tablet 5 mg PO DAILY Mirena 21 mcg/24 hours (8 yrs) 52 mg intrauterine device 1 device intrauterine CONT ferrous sulfate [FeroSul] 325 mg (65 mg iron) tablet 325 mg PO DAILY folic acid 1 mg tablet 1 mg PO DAILY cyanocobalamin (vitamin B-12) 1,000 mcg tablet extended release 1,000 mcg PO DAILY naproxen 500 mg tablet 500 mg PO BID Qty: 60 1RF Referrals Follow up/Referrals: Jasmin Naik APRN [Primary Care Provider] - See instructions Activity Restrictions/Add. Instructions Additional Instructions/Restrictions: At this time it was felt you are safe to be discharged home. If new or worsening symptoms please do not hesitate to return the emergency department. If symptoms persist please follow-up with your family doctor as you are able. Please take your medication as prescribed. Clinical Impressions Clinical Impression: Leg pain Discharge ED Provider: Richie Vargas General Adult HPI General Chief complaint: PAIN Stated complaint: bilateral leg pain and spasms, no accident Time Seen by Provider: 03/02/23 09:30 Mode of Arrival: Ambulatory Source of Information: Patient Limitations: No Limitations Description of Symptoms (Recalled from ER Triage Doc. by RN): 27 yo F presents to ED with c/o bilateral leg cramping, tingiling, spasms. symptoms began 2 days ago. History of Present Illness HPI narrative: Patient is a 27-year-old female with past medical history of iron deficiency anemia currently undergoing iron transfusions who presents emergency department for evaluation of leg cramping. Patient has had leg cramping before along the posterior aspect however has not had it in some time. She presents for the last 48 hours she has this ache along the posterior aspect of her thighs. No rash, no asymmetric swelling, no dysuria, no saddle anesthesia, no acute weakness. Patient also has a history of chronic back pain which intermittently radiates down her lower extremities proximal to the knees. Related Data Home Medications Medication Instructions Recorded Confirmed buspirone 5 mg tablet 5 mg PO DAILY mood 01/17/22 02/26/23 levonorgestrel 21 mcg/24 hours (8 1 device intrauterine CONT hormone 12/13/22 02/26/23 yrs) 52 mg intrauterine device therapy (Mirena) sertraline 50 mg tablet 50 mg PO DAILY 01/10/23 02/26/23 cyanocobalamin (vitamin B-12) 1,000 mcg PO DAILY 02/04/23 02/26/23 1,000 mcg tablet,extended release ferrous sulfate 325 mg (65 mg 325 mg PO DAILY 02/04/23 02/26/23 iron) tablet (FeroSul) folic acid 1 mg tablet 1 mg PO DAILY 02/04/23 02/26/23 Previous Rx's Medication Instructions Recorded naproxen 500 mg tablet 500 mg PO BID #60 tabs 01/03/23 methocarbamol 500 mg tablet 1,000 mg PO Q8H PRN Muscle Spasms 03/02/23 #18 tabs Allergies Allergy/AdvReac Type Severity Reaction Status Date / Time No Known Allergies Allergy Verified 02/14/23 09:19 [facility] Disclaimer: The information contained in this section may have been updated after the patient was seen, as this information can be updated by other users. Medical History (Updated 03/02/23 @ 11:26 by Richie Vargas MD) Anxiety Depression Menorrhagia Microcytic anemia Thrombocytosis Surgical History History of appendectomy Family History Other Anemia Cancer Diabetes FHx: mental illness Hyperlipidemia Hypertension Stroke Social History (Updated 02/26/23 @ 11:46 by Jeff Land RN) Smoking Status: Never smoker alcohol intake: never current occupational status: disabled Travel in the last 8 weeks:
[2023-03-02 10:00] VITALS: BP 128/83; PULSE 82; O2SAT 100
[2023-03-02 10:05] LABS: Basophils % 0.3 % (0.1-2.0); Eosinophils # 0.4 K/mm3 (0.0-0.4); Eosinophils % 3.1 % (0.1-12.0); Hematocrit 34.1 % (37.0-47.0); Hemoglobin 10.9 g/dL (12.2-16.2); Lymphocytes # 3.3 K/mm3 (0.7-4.5); Lymphocytes % 28.3 % (10-50); Mean Corpuscular HGB Conc 31.8 g/dL (31.8-35.4); Mean Corpuscular Hemoglobin 21.3 pg (27.0-31.2); Mean Corpuscular Volume 66.9 fl (81-99); Mean Platelet Volume 7.2 fl (7.4-10.4); Monocytes # 0.6 K/mm3 (0.1-1.0); Monocytes % 5.5 % (1.7-9.3); Neutrophils # 7.3 K/mm3 (1.8-7.8); Neutrophils % 62.8 % (37.0-80.0); Platelet Count 429 K/mm3 (142-424); Red Cell Distribution Width 24.7 % (11.5-17.5); White Blood Count 11.6 K/mm3 (4.8-10.8)
[2023-03-02 10:10] LABS: Chloride 107 mmol/L (98-107); Potassium 3.8 mmoL/L (3.5-5.1); Sodium 139 mmol/L (136-145)
--- NOTE | 2023-03-02 10:11 | CT_ITS ---
PROCEDURE INFORMATION: Exam: CT Lumbar Spine Without Contrast Exam date and time: 03/02/2023 10:59 AM Age: 27 years old Clinical indication: Low back pain; Additional info: Midline pain rad down le TECHNIQUE: Imaging protocol: Computed tomography of the lumbar spine without contrast. Radiation optimization: All CT scans at this facility use at least one of these dose optimization techniques: automated exposure control; mA and/or kV adjustment per patient size (includes targeted exams where dose is matched to clinical indication); or iterative reconstruction. REPORTING DATA: Count of CT and Cardiac NM exams in prior 12 months: This patient has received 0 known CTs and 0 known cardiac nuclear medicine studies in the 12 months prior to the current study. COMPARISON: MR LUMBAR SPINE WO CON 09/05/2022 1:01 PM FINDINGS: Bones/joints: No acute fracture. Normal alignment. No significant disc bulge or herniation. No severe spinal canal stenosis. No significant neural foraminal narrowing. Soft tissues: Unremarkable. IMPRESSION: No acute findings.
--- NOTE | 2023-03-02 10:11 | PC.NURSE ---
Pt able to ambulate without staff assistance. Pt did advise tenderness on lower back upon palpation, and squeezing in her thigh and calf. Dr. Vargas made aware.
[2023-03-02 10:12] LABS: Blood Urea Nitrogen 11 mg/dl (7-17); Creatinine Clearance Estimated 94 mL/min (50-200); Estimated Glomerular Filt Rate 99 ml/min (>60); GFR (African American) 120 ML/MIN (>60)
[2023-03-02 10:13] LABS: Alanine Aminotransferase 20 U/L (12-78); Albumin Level 4.3 g/dl (3.5-5.0); Albumin/Globulin Ratio 1.1 (1.1-1.8); Alkaline Phosphatase 122 U/L (38-126); Anion Gap 9.8 mEq/L (5-15); Aspartate Amino Transferase 24 U/L (14-36); Bilirubin,Total 0.2 mg/dl (0.2-1.3); Calcium 8.6 mg/dl (8.4-10.2); Carbon Dioxide 26 mmol/L (22.0-30.0); Creatine Kinase 66 U/L (30-135); Globulin 3.8 g/dL (1.3-3.2); Glucose 106 mg/dl (74-100); Total Protein,Serum 8.1 g/dl (6.3-8.2)
[2023-03-02 10:31] VITALS: BP 128/78; PULSE 82; O2SAT 99
[2023-03-02 10:39] LABS: HCG Qualitative, Serum Negative (Negative)
[2023-03-02 10:45] VITALS: BP 130/83; PULSE 85; O2SAT 97
[2023-03-02 11:33] VITALS: BP 130/83; PULSE 85; RESP 17; TEMP 36.9
== END 2023-03-02 11:34 | disposition home or self-care (01) ==
PROVIDERS: Emergency Provider Emergency Medicine; PCP Nurse Practitioner
DX: M79.604 Pain in right leg (principal); M79.605 Pain in left leg; M62.838 Other muscle spasm; D50.9 Iron deficiency anemia, unspecified
CPT/HCPCS: 72131; 80053; 82550; 84703; 85025; 96374; 99284

== ENCOUNTER 2023-03-05 11:18 | Outpatient (CLI) | payer MEDICARE, OTHER, SELFPAY ==
[2023-03-05 11:45] VITALS: BP 138/69; PULSE 72; RESP 18; TEMP 36.8; O2SAT 99
[2023-03-05 12:25] VITALS: BP 136/71; PULSE 74; RESP 18; O2SAT 99
== END 2023-03-05 12:30 | disposition home or self-care (01) ==
LOC: INF 11:18
PROVIDERS: PCP Nurse Practitioner; Visit Provider Internal Medicine Medical Oncology
DX: D50.9 Iron deficiency anemia, unspecified (principal)
CPT/HCPCS: 96365; J1756

== ENCOUNTER → 2023-03-05 13:20 | Outpatient (CLI) | payer MEDICARE, OTHER, SELFPAY ==
[2023-03-05 14:22] LABS: Basophils % 0.4 % (0.1-2.0); Eosinophils # 0.2 K/mm3 (0.0-0.4); Eosinophils % 2.1 % (0.1-12.0); Hematocrit 32.4 % (37.0-47.0); Hemoglobin 10.6 g/dL (12.2-16.2); Lymphocytes # 2.7 K/mm3 (0.7-4.5); Lymphocytes % 30.1 % (10-50); Mean Corpuscular HGB Conc 32.7 g/dL (31.8-35.4); Mean Corpuscular Hemoglobin 21.8 pg (27.0-31.2); Mean Corpuscular Volume 66.8 fl (81-99); Mean Platelet Volume 6.8 fl (7.4-10.4); Monocytes # 0.4 K/mm3 (0.1-1.0); Monocytes % 4.7 % (1.7-9.3); Neutrophils # 5.7 K/mm3 (1.8-7.8); Neutrophils % 62.8 % (37.0-80.0); Platelet Count 389 K/mm3 (142-424); Red Blood Count 4.86 M/mm3 (4.20-5.40); Red Cell Distribution Width 24.9 % (11.5-17.5); White Blood Count 9.1 K/mm3 (4.8-10.8)
[2023-03-05 14:56] LABS: Alanine Aminotransferase 20 U/L (12-78); Albumin Level 3.9 g/dl (3.5-5.0); Albumin/Globulin Ratio 1.1 (1.1-1.8); Alkaline Phosphatase 108 U/L (38-126); Anion Gap 12.2 mEq/L (5-15); Aspartate Amino Transferase 24 U/L (14-36); Bilirubin,Total 0.3 mg/dl (0.2-1.3); Blood Urea Nitrogen 11 mg/dl (7-17); Calcium 9.3 mg/dl (8.4-10.2); Carbon Dioxide 26 mmol/L (22.0-30.0); Chloride 105 mmol/L (98-107); Estimated Glomerular Filt Rate 99 ml/min (>60); GFR (African American) 120 ML/MIN (>60); Globulin 3.4 g/dL (1.3-3.2); Glucose 123 mg/dl (74-100); Potassium 4.2 mmoL/L (3.5-5.1); Sodium 139 mmol/L (136-145); Total Protein,Serum 7.3 g/dl (6.3-8.2)
== END ==
LOC: LAB.DROPOF 03-07 13:21
PROVIDERS: PCP Surgery; Visit Provider Surgery
DX: R10.11 Right upper quadrant pain; D50.8 Other iron deficiency anemias
CPT/HCPCS: 36415; 80053; 85025; 96365; J1756

== ENCOUNTER 2023-03-11 09:05 | Day surgery (SDC) | payer MEDICARE, OTHER, SELFPAY ==
[2023-03-11] VITALS (10 sets, daily range): BP systolic 121–141; BP diastolic 70–99; PULSE 65–118; RESP 15–26; TEMP 36.3–43; O2SAT 95–100; BMI 45.5
[2023-03-11 09:51] LABS: Urine Pregnancy, HCG Qual. Negative (Negative)
--- NOTE | 2023-03-11 11:43 | P.OP_ITS ---
Date of procedure: 03/11/23 Pre-op Diagnosis:: Gallbladder disease Post-op Diagnosis:: Same Procedure performed:: Laparoscopic cholecystectomy with laparoscopic liver biopsy Surgeon:: Rajendra Lea MD APPAREL DESIGNER:: Other Anesthesia: GETA Estimated blood loss (mL): 15 Clinical Note:: Patient is a 27-year-old female who presents for cholecystectomy. I had previously seen her and performed appendectomy on her in 2019. She gives a history of tenderness in the right upper quadrant and subcostal area for about 1 month. She describes throbbing pain. She has some regional abdominal bloating. She does state that her symptoms may be worse with dairy foods and spicy foods. She had undergone gallbladder ultrasound at [facility] which reveals gallstones, consider hepatobiliary scan . She underwent HIDA (hepatobiliary) scan with Ensure ingestion which reveals an ejection fraction of 20%. She was seen in the office. Options were discussed with her. She did wish to pursue cholecystectomy as soon as possible. Operative findings:: She had a distended gallbladder. There was some fatty infiltration of the liver. There was a nodule in the liver near the gallbladder adjacent to the falciform ligament. Likely benign. Biopsy performed. Operative note:: Patient was taken to the operating room. She was given preoperative intravenous antibiotics. In the operating room she is placed in a supine position. General anesthesia was induced via endotracheal tube. Abdomen was prepped and draped in the standard surgical fashion. Subumbilical skin incision was made in previous appendectomy scar. Dissection was carried down to the fascia. While performing abdominal wall lift Veress needle was inserted. CO2 pneumoperitoneum was achieved to 15 mmHg. 11 mm optical trocar was inserted at the umbilicus. Intraperitoneal contents were visualized. She was noted to have a small likely benign nodule on the liver adjacent to the gallbladder. Gallbladder was retracted anteriorly and superiorly over the dome of the liver. Infundibulum of the gallbladder was retracted anterior laterally. Blunt dissection was carried out at the neck of the gallbladder bluntly incising the visceral peritoneum. Cystic duct and cystic artery were clearly identified and the critical view of safety. Cystic duct was multiply clipped and sharply divided. Cystic artery was carefully coagulated with ANABELLA ultrasonic robotic ron and divided. Gallbladder was dissected free from the liver in a retrograde fashion using ANABELLA ultrasonic harmonic ron. Gallbladder was placed within an Endo Catch retrieval device and removed from the peritoneal cavity via the umbilical trocar site. The nodule on the liver was grasped with a stone grasper and excised using ANABELLA ultrasonic harmonic ron. It was sent off as specimen liver biopsy. Site was then cauterized with laparoscopic electrocautery. There was good hemostasis. Limited irrigation was performed. Trocars were then removed as CO2 pneumoperitoneum was evacuated. Fascia at the umbilicus was closed with a 0 Vicryl suture. Local anesthetic was infiltrated. Skin incisions were closed with 4-0 Monocryl in a subcuticular fashion. Dermabond and dressings were applied. Condition: stable Disposition: PACU Complications:: None immediately apparent
--- NOTE | 2023-03-11 11:56 | EXP.ANES.CKL ---
[facility] Disclaimer: The information contained in this section may have been updated after the patient was seen, as this information can be updated by other users. Medical History Anxiety Depression Menorrhagia Microcytic anemia Sleep apnea Thrombocytosis Surgical History History of appendectomy Family History Other Anemia Cancer Diabetes FHx: mental illness Hyperlipidemia Hypertension Stroke Social History (Updated 03/11/23 @ 09:27 by Marry Carmona RN) Smoking Status: Never smoker alcohol intake: never substance use type: denies use current occupational status: disabled Travel in the last 8 weeks: None household members: family housing: house [facility] Anesthesia Checklist Patient Identification Patient Identification: Arm Band and Family Structural Data Admitted From: Home Planned Operative Procedure/s: Lap Cholecystectomy Consent for Planned Operative Procedure(s) Verified: Yes NPO Status Verified Time NPO: 00:00 Additional verifications Anesthesia Reactions: No Hx Blood Transfusions: No Blood Transfusion Reaction: No Cephalosporin Allergy: No Previous Colonoscopy: No Airway Assessment Mallampati Score:: Class II C-Spine Mobility Assessed: Yes TMJ Mobility Assessed: Yes Dentition: Good Dentition Neurological Assessment Level of Consciousness: Awake, Alert, Appropriate and Follows Commands Hx Seizures: No Numbness or tingling in extremities: No Anesthesia Plan Anesthesia Risk discussed: Yes ASA Class: II Anesthesia Type: General Preoperative Comments Pre-Operative Comments: Obese.
--- NOTE | 2023-03-11 11:58 | EXP.ANES.I ---
[facility] Anesthesia Record Part I Anesthesia Record I Intake, IV Amount: 1,400 Hydration: Adequate Estimated blood loss (mL): 15 Urine output (mL): 0 Blood Products used (#): none Blood Pressure: 141/97 SaO2: 95 Pulse Rate: 87 Airway Patency: Patent Respiratory Rate: 26 Temperature: 97.4 F Patient is:: Drowsy and Stable Stable to PACU at:: 11:48
--- NOTE | 2023-03-12 08:35 | EXP.ANES.II ---
[facility] Anesthesia Record Part II Anesthesia Record Part II Discharge Time: 12:18 Destination: [facility] PACU nurse assessment reviewed?: Yes Patient Condition:: Good Anesthesia Complications:: None Swallowing reflex intact?: Yes Airway Patency: Patent Cyanosis?: No Blood Pressure: 128/89 SaO2: 96 Respiratory Rate: 12 Pulse Rate: 65 Temperature: 97.9 F Mental Status: Alert & Oriented Pain level:: 5 Nausea and/or vomitting:: None Intake, IV Amount: 1,000 Hydration: Adequate
[2023-03-12 08:37] VITALS: BP 128/89; PULSE 65; RESP 12; TEMP 36.6; O2SAT 96
== END 2023-03-11 12:50 | disposition home or self-care (01) ==
PROVIDERS: PCP Nurse Practitioner; Visit Provider Surgery
PROC: 0FT44ZZ Resection of Gallbladder, Percutaneous Endoscopic Approach (ICD-10-PCS; CPT 47562; principal; 2023-03-11 09:45)
DX: K80.20 Calculus of gallbladder without cholecystitis without obstruction (principal); K76.89 Other specified diseases of liver; E83.119 Hemochromatosis, unspecified
CPT/HCPCS: 47379; 47562; 81025; 88304; 88307; 88313; 96374; J2405

== ENCOUNTER 2023-03-20 12:04 | Outpatient (CLI) | payer MEDICARE, OTHER, SELFPAY ==
[2023-03-20 12:40] VITALS: BP 134/74; PULSE 73; RESP 18; TEMP 36.8; O2SAT 99
[2023-03-20 13:15] VITALS: BP 141/68; PULSE 75
== END 2023-03-20 13:20 | disposition home or self-care (01) ==
LOC: INF 12:05
PROVIDERS: PCP Nurse Practitioner; Visit Provider Internal Medicine Medical Oncology
DX: D50.9 Iron deficiency anemia, unspecified (principal)
CPT/HCPCS: 96365; J1756

== ENCOUNTER → 2023-03-20 14:26 | Outpatient (POV) | payer MEDICARE, OTHER, SELFPAY ==
[2023-03-20 14:56] VITALS: BP 143/86; PULSE 88; RESP 18; O2SAT 99; BMI 43.9
--- NOTE | 2023-03-20 15:18 | EXP.PAIN.OV ---
HPI Data of Consult Patient: new to practice Consult date: 03/20/23 Requesting Physician: Areli Leonard APRN Consult Narrative Reason for consult: Low back pain, bilateral hip pain History of present illness: Ms. Leonard is a 27 year old female who presents today as a new patient. She is a referral from [facility]. Today she rates her pain a 7 out of 10. Patient states her pain is all in her low back and bilateral hips. Patient states this has been going on for approximately 1 year or more. Patient does describe this as a aching, throbbing sensation with pressure. Patient states the pain is worse with prolonged sitting or standing or increased activity. Patient also states she feels like there is more pressure when she is on her menstrual cycle. Patient has tried Tylenol and ibuprofen along with heat and ice and topicals with minimal relief. Patient did recently have a lumbar epidural with Dr. Jovel however it did not make any additional improvement. Patient states she has tried a muscle relaxer and that did seem to help some. Patient does state the pain interferes with her ability perform activities of daily living such as cooking and cleaning. Patient is interested in any help we may be able to provide. CC: Areli Leonard APRN [facility] Disclaimer: The information contained in this section may have been updated after the patient was seen, as this information can be updated by other users. Medical History (Updated 03/20/23 @ 15:21 by Areli Leonard APRN) Anxiety Depression Menorrhagia Microcytic anemia Sleep apnea Thrombocytosis Surgical History History of appendectomy Family History Other Anemia Cancer Diabetes FHx: mental illness Hyperlipidemia Hypertension Stroke Social History (Updated 03/20/23 @ 14:58 by Shaina Burnett RN) Smoking Status: Never smoker alcohol intake: never substance use type: denies use current occupational status: unemployed Travel in the last 8 weeks: None household members: family housing: house Review of Systems Review of Systems Review of systems:: pertinent systems reviewed and negative unless documented below Review of systems (narrative): Review of Systems: General: No recent weight changes, no fever, no sleep disturbances Respiratory: No cough, no shortness of air, no recurring pulmonary infections Cardiovascular/peripheral vascular: No chest pain, no palpitations, no edema, no shortness of breath Gastrointestinal: No new onset incontinence, normal bowel movements reported Genitourinary: No new onset incontinence Musculoskeletal: Low back pain, bilateral hip pain Psychiatric: [Normal mood/affect] Neurological: [Denies weakness in extremities], [denies balance issues] Meds Home Medications and Allergies Home Medications Medication Instructions Recorded Confirmed Type buspirone 5 mg tablet 5 mg PO DAILY mood 01/17/22 03/20/23 History levonorgestrel 21 mcg/24 hours (8 1 device intrauterine CONT hormone 12/13/22 03/20/23 History yrs) 52 mg intrauterine device therapy (Mirena) naproxen 500 mg tablet 500 mg PO BID #60 tabs 01/03/23 03/20/23 Rx sertraline 50 mg tablet 50 mg PO DAILY 01/10/23 03/20/23 History methocarbamol 500 mg tablet 1,000 mg PO Q8H PRN Muscle Spasms 03/02/23 03/20/23 Rx #18 tabs hydrocodone 5 mg-acetaminophen 325 1 - 2 tab PO Q6H PRN Pain #17 tabs 03/11/23 03/20/23 Rx mg tablet New Prescriptions to Start Prescriptions: Allergies Allergy/AdvReac Type Severity Reaction Status Date / Time No Known Allergies Allergy Verified 03/11/23 09:24 Objective Vital signs: Pulse Resp BP Pulse Ox O2 Del Method 88 18 143/86 H 99 Room Air 03/20/23 14:56 03/20/23 14:56 03/20/23 14:56 03/20/23 14:56 03/20/23 14:56 Narrative: Physical Exam: General: Alert and oriented x3, no acute distress, pleasant and cooperative Lungs: Respirations even and unlabored, symmetrical chest expansion Eyes: PERRL Musculoskeletal: Flexion and extension of lumbar [spine] somewhat guarded secondary to pain, [antalgic gait noted] point tenderness along bilateral SIs with positive bilateral Jose Roberto's, Rico's, Gaenslen's, compression and distraction exam Neurological: Speech clear, no gross sensory deficit Additional findings Additional findings: FINDINGS: Multiplanar MR imaging of the lumbar spine was performed without contrast. On the sagittal T2-weighted images, abnormal decreased signal is seen at L5-S1. The vertebrae are of normal height. The vertebral alignment is normal. L1-2: There is no significant canal stenosis or neural foraminal narrowing. L2-3: There is no significant canal stenosis or neural foraminal narrowing. L3-4: There is no significant canal stenosis or neural foraminal narrowing. L4-5: There is no significant canal stenosis or neural foraminal narrowing. L5-S1: There is no significant canal stenosis or neural foraminal narrowing. IMPRESSION: Degenerative disc disease at L5-S1 without significant spinal or neural foraminal compromise. Reviewed, Interpreted and Dictated by Will De Guzman MD Transcribed by Shadia Beth Authenticated and [facility] Assessment and Plan *Assessment and plan (1) Degenerative disc disease, lumbar: Status: Acute Category: Medical Code(s): M51.36 - Other intervertebral disc degeneration, lumbar region (2) Low back pain: Status: Acute Qualifiers: Chronicity: chronic Back pain laterality: bilateral Sciatica presence: with sciatica Sciatica laterality: bilateral sciatica Qualified Code(s): M54.42 - Lumbago with sciatica, left side; M54.41 - Lumbago with sciatica, right side; G89.29 - Other chronic pain Category: Medical Code(s): M54.50 - Low back pain, unspecified (3) Bilateral hip pain: Status: Acute Category: Medical Code(s): M25.551 - Pain in right hip; M25.552 - Pain in left hip (4) Bilateral sacroiliitis: Status: Acute Category: Medical Code(s): M46.1 - Sacroiliitis, not elsewhere classified Plan Patient is experiencing worsening pain in her low back and bilateral hips with limited range of motion of her lumbar spine. Patient had point tenderness along her bilateral SIs and a positive bilateral Jose Roberto's, Rico's, Gaenslen's, compression and distraction exam. I have discussed with the patient that she may benefit from bilateral SI injections. Risk and benefits were discussed with the patient and she would like to proceed forward with this plan of care. We will schedule the patient for diagnostic bilateral SI injections. Patient has been instructed to contact the clinic with any concerns before the next appointment. Dr. Jain has reviewed this note and agrees with this plan of care. This note was dictated using voice recognition software and make contain errors or omissions.
== END ==
PROVIDERS: Visit Provider Nurse Practitioner Family
DX: M51.36 Other intervertebral disc degeneration, lumbar region (principal); M54.42 Lumbago with sciatica, left side; M54.41 Lumbago with sciatica, right side; G89.29 Other chronic pain; M25.551 Pain in right hip; M25.552 Pain in left hip; M46.1 Sacroiliitis, not elsewhere classified; D50.9 Iron deficiency anemia, unspecified; N92.0 Excessive and frequent menstruation with regular cycle
CPT/HCPCS: 96365; 99202; G0463; J1756

== ENCOUNTER 2023-03-26 14:04 | Outpatient (CLI) | payer MEDICARE, OTHER, SELFPAY ==
[2023-03-26 14:20] VITALS: BP 131/77; PULSE 83; RESP 18; O2SAT 100
[2023-03-26] MEDS: IRON SUCROSE COMPLEX 200 MG in 0.9 % SODIUM CHLORIDE 100 ML 220 MG IV (14:20)
[2023-03-26] MEDS: 0.9 % SODIUM CHLORIDE 50 ML 100 ML IV (14:20)
[2023-03-26 14:57] VITALS: BP 125/71; PULSE 76; RESP 18
== END 2023-03-26 14:57 | disposition home or self-care (01) ==
LOC: INF 14:05
PROVIDERS: PCP Nurse Practitioner; Visit Provider Internal Medicine Medical Oncology
DX: D50.0 Iron deficiency anemia secondary to blood loss (chronic) (principal); N92.0 Excessive and frequent menstruation with regular cycle; D64.9 Anemia, unspecified; D75.838 Other thrombocytosis; T45.4X5A Adverse effect of iron and its compounds, initial encounter
CPT/HCPCS: 96365; J1756

== ENCOUNTER 2023-04-02 11:51 | Day surgery (SDC) | payer MEDICARE, OTHER, SELFPAY ==
[2023-04-02 12:05] VITALS: BP 156/95; PULSE 117; RESP 16; TEMP 36.2; O2SAT 100; BMI 43.9
[2023-04-02 12:07] VITALS: BP 177/94; PULSE 118; RESP 18; O2SAT 97
[2023-04-02 12:10] VITALS: BP 177/94; PULSE 118; RESP 19; O2SAT 97
[2023-04-02 12:15] VITALS: BP 123/81; PULSE 96; RESP 16; O2SAT 100
--- NOTE | 2023-04-02 12:15 | P.PCN_ITS ---
Procedure Date: 04/02/23 Time: 12:00 Anesthesiologist:: Bandar Eisenberg CRNA Complications:: None Pre-procedure Diagnosis:: Bilateral sacroiliitis. Post-procedure Diagnosis:: Same. Indications for Procedure:: Patient is a pleasant 27-year-old female comes our clinic today for bilateral sacroiliac joint injections. Patient describes low lumbar back pain bilaterally off the midline. Also, she reports having difficulty transitioning from sitting to standing. Upon examination she has extreme point tenderness over the bilateral sacroiliac joints. Patient has tried and failed lumbar epidural steroid injection. She describes low lumbar pain as well as bilateral hip pain is constant, dull, aching. She reports having difficulty with lumbar flexion. Procedure Details:: Procedure: Bilateral sacroiliac joint injections under fluoroscopy Informed consent was obtained and the risks and benefits of the procedure were explained to the patient.~ The patient was taken to the procedure room and noninvasive monitors were placed including a noninvasive blood pressure cuff and pulse oximeter.~ The patient was placed prone on the procedure table. Both hips were cleansed using Betadine as a cleansing solution. C-arm fluoroscopy was used to view the right sacroiliac joint.~ The skin and subcutaneous tissues were anesthetized using lidocaine 1.5% and a 25-gauge needle.~ After this, a 22-gauge spinal needle was inserted under fluoroscopic guidance into the inferior aspect of the right sacroiliac joint.~ Omnipaque dye was injected and good spread was seen throughout the joint.~ After this, approximately 5 mL of bupivacaine, 0.25% and Depo-Medrol, 40 mg was incrementally injected into the right sacroiliac joint. We then moved to the left sacroiliac joint.~ The skin and subcutaneous tissues were anesthetized using lidocaine 1.5% and a 25-gauge needle.~ After this, a 22- gauge spinal needle was inserted under fluoroscopic guidance into the inferior aspect of the left sacroiliac joint.~ Omnipaque dye was injected and good spread was seen throughout the joint. After this, approximately 5 mL of bupivacaine, 0.25% and Depo-Medrol, 40 mg was incrementally injected into the left sacroiliac joint.~ The patient tolerated the procedure well with no complications. The patient was observed in the Pain Clinic and then was discharged home neurologically intact. Plan and Disposition:: Patient was discharged without incident.
== END 2023-04-02 12:15 | disposition home or self-care (01) ==
PROVIDERS: PCP Nurse Practitioner; Visit Provider Nurse Anesthetist, Certified Registered
DX: M46.1 Sacroiliitis, not elsewhere classified (principal)
CPT/HCPCS: 27096; G0260; J1040

== ENCOUNTER → 2023-04-17 13:26 | Outpatient (POV) | payer MEDICARE, OTHER, SELFPAY ==
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
[2023-04-17 13:36] VITALS: BP 129/88; PULSE 88; RESP 18; O2SAT 100; BMI 46.6
== END | disposition home or self-care (01) ==
PROVIDERS: Visit Provider Nurse Practitioner Family
DX: M51.36 Other intervertebral disc degeneration, lumbar region (principal); M46.1 Sacroiliitis, not elsewhere classified; M25.551 Pain in right hip; M25.552 Pain in left hip
CPT/HCPCS: 99212; G0463

== ENCOUNTER 2023-05-03 10:58 | Day surgery (SDC) | payer MEDICARE, OTHER, SELFPAY ==
[2023-05-03 11:06] VITALS: BP 154/95; PULSE 109; PULSE 110; RESP 18; O2SAT 98
[2023-05-03 11:10] VITALS: BP 148/87; PULSE 101; RESP 16; TEMP 36.5; O2SAT 100; BMI 45.7
[2023-05-03] MEDS: methylPREDNISolone ACETATE 80MG/ML VIAL 80 MG (11:11)
[2023-05-03] MEDS: BUPIVACAINE 0.25% 10ML INJ 25 MG IJ (11:11)
[2023-05-03] MEDS: LIDOCAINE 1% 5ML PF VIAL 5 ML (11:11)
--- NOTE | 2023-05-03 11:21 | P.PCN_ITS ---
Procedure Date: 05/03/23 Time: 11:15 Anesthesiologist:: Bandar Eisenberg CRNA Complications:: None Pre-procedure Diagnosis:: Bilateral sacroiliitis. Post-procedure Diagnosis:: Same. Indications for Procedure:: Patient is a pleasant 27-year-old female comes today for bilateral sacroiliac joint injections. Patient has had significant improvement terms of her overall low back pain as well as bilateral posterior hip pain. Patient has difficulty transitioning from sitting to standing. Patient reports ambulating increases pain in the low lumbar area as well as bilateral posterior hips. She rates her pain 7/10. Procedure Details:: Procedure: Bilateral sacroiliac joint injections under fluoroscopy Informed consent was obtained and the risks and benefits of the procedure were explained to the patient.~ The patient was taken to the procedure room and noninvasive monitors were placed including a noninvasive blood pressure cuff and pulse oximeter.~ The patient was placed prone on the procedure table. Both hips were cleansed using Betadine as a cleansing solution. C-arm fluoroscopy was used to view the right sacroiliac joint.~ The skin and subcutaneous tissues were anesthetized using lidocaine 1.5% and a 25-gauge needle.~ After this, a 22-gauge spinal needle was inserted under fluoroscopic guidance into the inferior aspect of the right sacroiliac joint.~ Omnipaque dye was injected and good spread was seen throughout the joint.~ After this, approximately 5 mL of bupivacaine, 0.25% and Depo-Medrol, 40 mg was incrementally injected into the right sacroiliac joint. We then moved to the left sacroiliac joint.~ The skin and subcutaneous tissues were anesthetized using lidocaine 1.5% and a 25-gauge needle.~ After this, a 22- gauge spinal needle was inserted under fluoroscopic guidance into the inferior aspect of the left sacroiliac joint.~ Omnipaque dye was injected and good spread was seen throughout the joint. After this, approximately 5 mL of bupivacaine, 0.25% and Depo-Medrol, 40 mg was incrementally injected into the left sacroiliac joint.~ The patient tolerated the procedure well with no complications. The patient was observed in the Pain Clinic and then was discharged home neurologically intact. Plan and Disposition:: Patient was discharged without incident.
[2023-05-03 11:30] VITALS: BP 146/77; PULSE 103; RESP 16; O2SAT 100
== END 2023-05-03 11:30 | disposition home or self-care (01) ==
PROVIDERS: PCP Surgery; Visit Provider Nurse Anesthetist, Certified Registered
DX: M46.1 Sacroiliitis, not elsewhere classified (principal)
CPT/HCPCS: 27096; G0260; J1040

== ENCOUNTER 2023-05-09 13:41 | Outpatient (CLI) | payer MEDICARE, OTHER, SELFPAY ==
[2023-05-09 14:04] LABS: Basophils # 0.1 K/mm3 (0-0.2); Basophils % 0.5 % (0.1-2.0); Eosinophils # 0.2 K/mm3 (0.0-0.4); Eosinophils % 1.3 % (0.1-12.0); Hematocrit 40.2 % (37.0-47.0); Hemoglobin 13.3 g/dL (12.2-16.2); Lymphocytes # 3.2 K/mm3 (0.7-4.5); Lymphocytes % 23.8 % (10-50); Mean Corpuscular Hemoglobin 26.5 pg (27.0-31.2); Mean Corpuscular Volume 80.3 fl (81-99); Mean Platelet Volume 7.3 fl (7.4-10.4); Monocytes # 0.8 K/mm3 (0.1-1.0); Neutrophils # 9.2 K/mm3 (1.8-7.8); Neutrophils % 68.3 % (37.0-80.0); Platelet Count 390 K/mm3 (142-424); Red Cell Distribution Width 21.2 % (11.5-17.5); White Blood Count 13.5 K/mm3 (4.8-10.8)
[2023-05-09 14:48] LABS: Iron 53 ug/dL (37-170)
[2023-05-09 14:57] LABS: Total Iron Binding Capacity 348 ug/dL (265-497)
[2023-05-09 15:24] LABS: Ferritin 55.6 ng/ml (6.24-137)
== END 2023-05-09 23:59 ==
LOC: LAB 13:42
PROVIDERS: PCP Nurse Practitioner; Visit Provider Internal Medicine Medical Oncology
DX: D50.9 Iron deficiency anemia, unspecified (principal)
CPT/HCPCS: 36415; 82728; 83540; 83550; 85025

== ENCOUNTER → 2023-05-15 10:49 | Outpatient (POV) | payer MEDICARE, OTHER, SELFPAY ==
--- NOTE | 2023-05-15 11:17 | EXP.PAIN.SOA ---
[facility] Pain Management SOAP Note Subjective:: Patient is a pleasant 27-year-old female who presents today for follow-up of bilateral SI injections on 05/03/2023. We are currently treating the patient for degenerative disc disease with sacroiliitis, bilateral hip pain. Today she rates her pain a 6 out of 10. Patient denies any new trauma or injury. She states she only had approximately 20% improvement from these injections and feels like it only lasted short-lived and she is back to her baseline. Patient does states she continues to have low back pain that does go into her hips and occasionally into her upper thighs. Patient denies any heart or kidney issues. Her Luis Alberto has been reviewed and is appropriate. Review of Systems: General: No recent weight changes, no fever, no sleep disturbances Respiratory: No cough, no shortness of air, no recurring pulmonary infections Cardiovascular/peripheral vascular: No chest pain, no palpitations, no edema, no shortness of breath Gastrointestinal: No new onset incontinence, normal bowel movements reported Genitourinary: No new onset incontinence Musculoskeletal: Low back pain Psychiatric: [Normal mood/affect] Neurological: [Denies weakness in extremities], [denies balance issues] Objective:: Physical Exam: General: Alert and oriented x3, no acute distress, pleasant and cooperative Lungs: Respirations even and unlabored, symmetrical chest expansion Eyes: PERRL Musculoskeletal: Flexion and extension of lumbar [spine] somewhat guarded secondary to pain, [antalgic gait noted] Neurological: Speech clear, no gross sensory deficit Assessment:: Degenerative disc disease with sacroiliitis, bilateral hip pain Plan:: Patient continues to experience significant pain. I will order the patient meloxicam 15 mg daily. I have counseled the patient to discontinue all other NSAIDs while taking this medication and to take it with food to minimize GI upset. Patient will return to clinic in 1 month for reevaluation of symptoms and plan of care. Patient has been instructed to contact the clinic with any concerns before the next appointment. Dr. Jain has reviewed this note and agrees with this plan of care. This note was dictated using voice recognition software and make contain errors or omissions. [facility] Disclaimer: The information contained in this section may have been updated after the patient was seen, as this information can be updated by other users. Medical History (Updated 05/15/23 @ 10:08 by RAYMOND Weber) ADHD Anxiety Degenerative disc disease, lumbar Depression Menorrhagia Microcytic anemia Sleep apnea Thrombocytosis Surgical History History of appendectomy History of laparoscopic cholecystectomy Family History Other Anemia Cancer Diabetes FHx: mental illness Hyperlipidemia Hypertension Stroke Social History Smoking Status: Never smoker alcohol intake: never substance use type: denies use current occupational status: unemployed Travel in the last 8 weeks: None household members: family housing: house
[2023-05-15 11:30] VITALS: BP 131/89; PULSE 87; RESP 18; O2SAT 98; BMI 47.9
== END | disposition home or self-care (01) ==
PROVIDERS: Visit Provider Nurse Practitioner Family
DX: M51.36 Other intervertebral disc degeneration, lumbar region (principal); M46.1 Sacroiliitis, not elsewhere classified; M25.551 Pain in right hip; M25.552 Pain in left hip
CPT/HCPCS: 99212; G0463

== ENCOUNTER 2023-05-29 13:40 | Outpatient (CLI) | payer MEDICARE, OTHER, SELFPAY ==
[2023-05-29 14:13] LABS: Basophils % 0.3 % (0.1-2.0); Eosinophils # 0.3 K/mm3 (0.0-0.4); Eosinophils % 2.4 % (0.1-12.0); Hematocrit 37.4 % (37.0-47.0); Hemoglobin 12.2 g/dL (12.2-16.2); Lymphocytes # 3.5 K/mm3 (0.7-4.5); Lymphocytes % 26.8 % (10-50); Mean Corpuscular HGB Conc 32.7 g/dL (31.8-35.4); Mean Corpuscular Hemoglobin 26.5 pg (27.0-31.2); Mean Corpuscular Volume 80.9 fl (81-99); Mean Platelet Volume 6.5 fl (7.4-10.4); Monocytes # 0.6 K/mm3 (0.1-1.0); Monocytes % 4.8 % (1.7-9.3); Neutrophils # 8.6 K/mm3 (1.8-7.8); Neutrophils % 65.7 % (37.0-80.0); Platelet Count 385 K/mm3 (142-424); Red Blood Count 4.63 M/mm3 (4.20-5.40); Red Cell Distribution Width 17.7 % (11.5-17.5); White Blood Count 13.1 K/mm3 (4.8-10.8)
[2023-05-29 15:32] LABS: Ferritin 75.9 ng/ml (6.24-137)
== END 2023-05-29 23:59 ==
LOC: LAB 13:41
PROVIDERS: PCP Nurse Practitioner; Visit Provider Obstetrics & Gynecology
DX: N92.6 Irregular menstruation, unspecified (principal)
CPT/HCPCS: 36415; 82728; 85025

== ENCOUNTER 2023-05-31 10:04 | Outpatient (CLI) | payer MEDICARE, OTHER, SELFPAY ==
--- NOTE | 2023-05-31 10:04 | US_ITS ---
PROCEDURE: US TRANSVAGINAL CLINICAL INDICATION: AUB,menorrhagia COMPARISON: No exams were available for comparison FINDINGS: Transvaginal sonographic images of the pelvis were obtained. UTERUS: 9.0cm x 5.3cmx 4.3cm anteverted with a combined endometrial thickness of 5mm. An IUD is not present within the uterine cavity. LEFT OVARY: 2.7 cmx3.3cmx3.0cm with a volume of 14ml. Within the left ovary there is a follicle measuring 2.8 cm x 2.8 cm x 2.4 cm. RIGHT OVARY: 2.5cmx 2.3cmx1.7 cm with a volume of 5.2ml. There are several small follicles in the ovary. Both ovaries are seen and appear normal. Doppler flow to both ovaries are seen. There is no fluid in the cul-de-sac. IMPRESSION: 1. Anteverted uterus normal in shape and size. The endometrium is thin. 2. An IUD is not seen within the uterine cavity. 3. Both left and right ovaries are seen and appear normal. There is at 2.8 cm follicle in the left ovary. 4. No fluid in the cul-de-sac. Dictated by: Jagdish Mcbride MD 06/01/2023 11:04 Jagdish Mcbride MD in [place] 06/01/2023 11:04
== END 2023-05-31 23:59 ==
LOC: RAD 10:04
PROVIDERS: PCP Nurse Practitioner; Visit Provider Obstetrics & Gynecology
DX: N92.0 Excessive and frequent menstruation with regular cycle (principal); N93.9 Abnormal uterine and vaginal bleeding, unspecified
CPT/HCPCS: 76830

== ENCOUNTER → 2023-06-26 13:30 | Outpatient (POV) | payer MEDICARE, OTHER, SELFPAY ==
--- NOTE | 2023-06-26 14:20 | EXP.PAIN.SOA ---
[facility] Pain Management SOAP Note Subjective:: Patient is a pleasant 27-year-old female who presents today for follow-up. We are currently treating the patient for low back pain with sacroiliitis, bilateral hip pain. Today she rates her pain a 8 out of 10. Patient states that she hurts all over with her neck, mid back, left knee. Patient states that the meloxicam does not seem to be doing much as well as the compounded cream made no change in her symptoms. She does state that she is experiencing more swelling in and around her left knee however denies any specific trauma or injury. Patient is requesting something for pain. Her Luis Alberto has been reviewed and is appropriate. Review of Systems: General: No recent weight changes, no fever, no sleep disturbances Respiratory: No cough, no shortness of air, no recurring pulmonary infections Cardiovascular/peripheral vascular: No chest pain, no palpitations, no edema, no shortness of breath Gastrointestinal: No new onset incontinence, normal bowel movements reported Genitourinary: No new onset incontinence Musculoskeletal: Left knee pain/swelling Psychiatric: [Normal mood/affect] Neurological: [Denies weakness in extremities], [denies balance issues] Objective:: Physical Exam: General: Alert and oriented x3, no acute distress, pleasant and cooperative Lungs: Respirations even and unlabored, symmetrical chest expansion Eyes: PERRL Musculoskeletal: Flexion and extension of left knee somewhat guarded secondary to pain Neurological: Speech clear, no gross sensory deficit Assessment:: Low back pain with sacroiliitis, bilateral hip pain Plan:: Patient is complaining of more pain in her left knee with swelling. Patient did have limited range of motion. Will order x-ray imaging and send in a 5-day dose of prednisone 20 mg twice daily and also send in a 14-day supply of duloxetine 20 mg twice daily. Patient will return to clinic in 2 weeks for reevaluation of symptoms and plan of care. Patient has been instructed to contact the clinic with any concerns before the next appointment. Dr. Jain has reviewed this note and agrees with this plan of care. This note was dictated using voice recognition software and make contain errors or omissions. [facility] Disclaimer: The information contained in this section may have been updated after the patient was seen, as this information can be updated by other users. Medical History ADHD Anxiety Degenerative disc disease, lumbar Depression Menorrhagia Microcytic anemia Sleep apnea Thrombocytosis Surgical History History of appendectomy History of laparoscopic cholecystectomy Family History Other Anemia Cancer Diabetes FHx: mental illness Hyperlipidemia Hypertension Stroke Social History Smoking Status: Never smoker alcohol intake: never substance use type: denies use current occupational status: unemployed Travel in the last 8 weeks: None household members: family housing: house
[2023-06-26 14:41] VITALS: BP 140/87; PULSE 97; RESP 20; O2SAT 99; BMI 21.8
== END | disposition home or self-care (01) ==
PROVIDERS: Visit Provider Nurse Practitioner Family
DX: M25.562 Pain in left knee (principal); M54.50 Low back pain, unspecified; M46.1 Sacroiliitis, not elsewhere classified; M25.551 Pain in right hip; M25.552 Pain in left hip
CPT/HCPCS: 99212; G0463

== ENCOUNTER 2023-06-27 12:48 | Outpatient (CLI) | payer MEDICARE, OTHER, SELFPAY ==
--- NOTE | 2023-06-27 13:53 | XR_ITS ---
FINAL REPORT CLINICAL HISTORY: LT KNEE PAIN FINDINGS: LEFT KNEE 3 views of the left knee were obtained. There is no acute fracture or dislocation. Visualized joint spaces are normally aligned. Soft tissues are unremarkable. IMPRESSION: No acute bony abnormality. Reviewed, Interpreted and Dictated by Will De Guzman MD Transcribed by Riddhi Wolff Authenticated and [facility]
== END 2023-06-27 23:59 ==
PROVIDERS: PCP Nurse Practitioner; Visit Provider Nurse Practitioner Family
DX: M25.562 Pain in left knee (principal); M25.462 Effusion, left knee
CPT/HCPCS: 73562

== ENCOUNTER → 2023-07-11 14:10 | Outpatient (POV) | payer MEDICARE, OTHER, SELFPAY ==
[2023-07-11 14:19] VITALS: BP 141/96; PULSE 91; RESP 20; BMI 42.0
--- NOTE | 2023-07-11 14:51 | EXP.PAIN.SOA ---
[facility] Pain Management SOAP Note Subjective:: Patient is a pleasant 27-year-old female who presents today for follow-up. We are currently treating the patient for low back pain with sacroiliitis, bilateral hip pain, left knee pain. Today she rates her pain a 6 out of 10. She states that she is having more pain in her low back that does not radiate into her legs that is worse with certain movements such as bending, twisting or lifting. She does describe this as an aching, throbbing sensation. She states the pain is interfering with her ability to perform activities of daily living. Patient has been tried on compounded cream and states that it does help some. At her last visit we did send in a prescription of duloxetine 20 mg twice a day. She states that she did not really notice significant relief with this medication. Patient does present today with her mother at her appointment. Patient's mother is asking whether or not the intrathecal pump is an option for her. Patient does also state that she is scheduled for a uterine ablation on the of this month. Her Luis Alberto has been reviewed and is appropriate. Review of Systems: General: No recent weight changes, no fever, no sleep disturbances Respiratory: No cough, no shortness of air, no recurring pulmonary infections Cardiovascular/peripheral vascular: No chest pain, no palpitations, no edema, no shortness of breath Gastrointestinal: No new onset incontinence, normal bowel movements reported Genitourinary: No new onset incontinence Musculoskeletal: Low back pain Psychiatric: [Normal mood/affect] Neurological: [Denies weakness in extremities], [denies balance issues] Objective:: Physical Exam: General: Alert and oriented x3, no acute distress, pleasant and cooperative Lungs: Respirations even and unlabored, symmetrical chest expansion Eyes: PERRL Musculoskeletal: Flexion and extension of lumbar [spine] somewhat guarded secondary to pain, [antalgic gait noted] positive Kemps test Neurological: Speech clear, no gross sensory deficit Assessment:: Low back pain with sacroiliitis, bilateral hip pain, left knee pain, lumbar facet arthropathy Plan:: Patient is experiencing worsening pain in her low back with limited range of motion of her lumbar spine and a positive Kemps test. I have discussed with patient that she may benefit from a lumbar medial branch block. Risk and benefits were discussed with the patient and she would like to proceed forward with this plan of care. I have counseled the patient that the fluoxetine can take longer time to get into her system to notice improvement. We will continue the duloxetine 20 mg twice a day and provide a 1 month supply of this medication. I have counseled the patient and her mother that the intrathecal pain pump does have specific specifications such as failed back surgery that do not make it applicable for her current symptoms. Patient will be submitted for a lumbar medial branch block bilaterally L4-L5 and L5-S1 under fluoroscopy. Patient has been instructed to contact the clinic with any concerns before the next appointment. Dr. Jain has reviewed this note and agrees with this plan of care. This note was dictated using voice recognition software and make contain errors or omissions. [facility] Disclaimer: The information contained in this section may have been updated after the patient was seen, as this information can be updated by other users. Medical History (Updated 06/27/23 @ 16:25 by Opal Sellers DO) ADHD Degenerative disc disease, lumbar Sleep apnea Anxiety Depression Menorrhagia Thrombocytosis Microcytic anemia Surgical History History of laparoscopic cholecystectomy History of appendectomy Family History Other Anemia Cancer Diabetes FHx: mental illness Hyperlipidemia Hypertension Stroke Social History Smoking Status: Never smoker alcohol intake: never substance use type: denies use current occupational status: other Travel in the last 8 weeks: None household members: family housing: house
== END | disposition home or self-care (01) ==
PROVIDERS: PCP Nurse Practitioner; Visit Provider Nurse Practitioner Family
DX: M47.816 Spondylosis without myelopathy or radiculopathy, lumbar region (principal); M54.50 Low back pain, unspecified; M46.1 Sacroiliitis, not elsewhere classified; M25.551 Pain in right hip; M25.552 Pain in left hip; M25.562 Pain in left knee
CPT/HCPCS: 99212; G0463

== ENCOUNTER 2023-07-26 15:08 | Outpatient (CLI) | payer MEDICARE, OTHER, SELFPAY ==
[2023-07-26 15:44] LABS: Basophils # 0.1 K/mm3 (0-0.2); Basophils % 0.8 % (0.1-2.0); Eosinophils # 0.3 K/mm3 (0.0-0.4); Eosinophils % 2.5 % (0.1-12.0); Hematocrit 38.8 % (37.0-47.0); Hemoglobin 12.6 g/dL (12.2-16.2); Lymphocytes # 3.5 K/mm3 (0.7-4.5); Lymphocytes % 31.2 % (10-50); Mean Corpuscular HGB Conc 32.5 g/dL (31.8-35.4); Mean Corpuscular Hemoglobin 28.9 pg (27.0-31.2); Mean Corpuscular Volume 88.7 fl (81-99); Mean Platelet Volume 7.7 fl (7.4-10.4); Monocytes # 0.6 K/mm3 (0.1-1.0); Monocytes % 5.2 % (1.7-9.3); Neutrophils # 6.8 K/mm3 (1.8-7.8); Neutrophils % 60.3 % (37.0-80.0); Platelet Count 450 K/mm3 (142-424); Red Blood Count 4.37 M/mm3 (4.20-5.40); Red Cell Distribution Width 13.2 % (11.5-17.5); White Blood Count 11.4 K/mm3 (4.8-10.8)
[2023-07-26 16:03] LABS: Chloride 105 mmol/L (98-107); Potassium 3.9 mmoL/L (3.5-5.1); Sodium 140 mmol/L (136-145)
[2023-07-26 16:06] LABS: Alanine Aminotransferase 27 U/L (12-78); Albumin Level 3.9 g/dl (3.5-5.0); Albumin/Globulin Ratio 1.2 (1.1-1.8); Alkaline Phosphatase 140 U/L (38-126); Anion Gap 8.9 mEq/L (5-15); Aspartate Amino Transferase 31 U/L (14-36); Bilirubin,Total 0.5 mg/dl (0.2-1.3); Blood Urea Nitrogen 13 mg/dl (7-17); Calcium 9.2 mg/dl (8.4-10.2); Carbon Dioxide 30 mmol/L (22.0-30.0); Estimated Glomerular Filt Rate 99 ml/min (>60); GFR (African American) 120 ML/MIN (>60); Globulin 3.3 g/dL (1.3-3.2); Glucose 101 mg/dl (74-100); Total Protein,Serum 7.2 g/dl (6.3-8.2)
[2023-07-26 16:23] LABS: HCG,Quantitative < 2 mIU/ml (0-5.42)
== END 2023-07-26 23:59 ==
LOC: LAB 15:09
PROVIDERS: PCP Nurse Practitioner; Visit Provider Obstetrics & Gynecology
DX: N92.0 Excessive and frequent menstruation with regular cycle (principal); R10.2 Pelvic and perineal pain
CPT/HCPCS: 36415; 80053; 84702; 85025

== ENCOUNTER 2023-08-01 05:42 | Day surgery (SDC) | payer MEDICARE, OTHER, SELFPAY ==
[2023-07-30 14:09] VITALS: BMI 46.6
[2023-08-01] VITALS (8 sets, daily range): BP systolic 123–150; BP diastolic 71–108; PULSE 67–105; RESP 16–18; TEMP 36.3; O2SAT 95–100
[2023-08-01] MEDS: LACTATED RINGERS 1000ML 1,000 ML 25 ML IV (06:38)
--- NOTE | 2023-08-01 07:57 | EXP.ANES.CKL ---
[facility] Disclaimer: The information contained in this section may have been updated after the patient was seen, as this information can be updated by other users. Medical History ADHD Degenerative disc disease, lumbar Sleep apnea Anxiety Depression Menorrhagia Thrombocytosis Microcytic anemia Surgical History History of laparoscopic cholecystectomy History of appendectomy Family History Other Anemia Cancer Diabetes FHx: mental illness Hyperlipidemia Hypertension Stroke Social History Smoking Status: Never smoker alcohol intake: never substance use type: denies use current occupational status: other Travel in the last 8 weeks: None household members: family housing: house [facility] Anesthesia Checklist Patient Identification Patient Identification: Verbal (Name & ) Structural Data Admitted From: Home Planned Operative Procedure/s: d/c, hyst Consent for Planned Operative Procedure(s) Verified: Yes NPO Status Verified Time NPO: 00:00 Additional verifications Anesthesia Reactions: No Hx Blood Transfusions: No Blood Transfusion Reaction: No Airway Assessment Mallampati Score:: Class II C-Spine Mobility Assessed: Yes TMJ Mobility Assessed: Yes Dentition: Good Dentition Neurological Assessment Level of Consciousness: Awake, Alert and Appropriate Anesthesia Plan Anesthesia Risk discussed: Yes Anesthesia Plan: Verified ASA Class: III Anesthesia Type: General
[2023-08-01] MEDS: LIDOCAINE 1% 20ML MDV 20 ML ×2 (08:17)
--- NOTE | 2023-08-01 09:14 | P.PNANES_ITS ---
[facility] Anesthesia Record Part I Anesthesia Record I Intake, IV Amount: 700 Hydration: Adequate Estimated blood loss (mL): 25 Urine output (mL): 50 Blood Products used (#): none Blood Pressure: 137/81 SaO2: 97 Pulse Rate: 95 Airway Patency: Patent Respiratory Rate: 16 Temperature: 97.4 F Patient is:: Awake (Talking) and Stable Stable to PACU at:: 09:13
[2023-08-01] MEDS: MORPHINE 2MG/ML SYRINGE 2 MG IV (09:19)
[2023-08-01] MEDS: MEPERIDINE 25MG/ML 1ML SYRINGE 25 MG IV (09:19)
[2023-08-01] MEDS: HYDROMORPHONE 2MG/ML SYRINGE 0.299999999999999989 MG IV (09:28)
--- NOTE | 2023-08-01 09:42 | P.OP_ITS ---
Date of procedure: 08/01/23 Pre-op Diagnosis:: 1. Desires sterilization 2. Abnormal uterine bleeding 3. Menorrhagia 4. Anemia requiring IV iron infusion Post-op Diagnosis:: 1. Desires sterilization 2. Abnormal uterine bleeding 3. Menorrhagia 4. Anemia requiring IV iron infusion Procedure performed:: 1. Laparoscopic bilateral salpingectomy 2. Hysteroscopy, dilation, and MyoSure curettage Surgeon:: Opal Sellers DO TECHNICIAN PREVENTATIVE MEDICINE:: Other (Mirena Saldaris) Anesthesia: GETA Estimated blood loss (mL): 20 Operative findings:: 1. Bimanual examination was nonrevealing secondary to body habitus 2. Laparoscopic exam revealed normal-appearing uterus, ovaries, fallopian tubes and liver. No significant pelvic adhesions noted 3. Hysteroscopy revealed diffusely proliferative endometrium with a possible endometrial polyp. Operative note:: Teodora Leonard is a 27-year-old G3 who desires permanent sterilization. Risk and benefits were discussed at length and she understands the permanence of this procedure. She is sure that she does not want any children and is unable to care for children. Patient still lives at home with her mother who assists with her healthcare needs. The patient second concern is abnormal uterine bleeding, heavy menorrhagia, and a longstanding history of iron deficiency anemia requiring IV iron transfusions. The patient was requesting a NovaSure endometrial ablation. We discussed the risk and benefits at length on multiple preoperative appointments. I discussed these risks again with her on the morning of surgery and expressed my concern for future endometrial cancer again. The patient and her mother state that their primary concern is bilateral salpingectomy to prevent and they agreed to wait on the endometrial ablation. Will proceed with hysteroscopy, dilation and curettage, and MyoSure. At her follow-up visit we will discuss hormonal control of her menstrual cycle. She has previously used IUDs which controlled her cycles well but secondary to heavy bleeding they were spontaneously expelled twice. The patient was taken to the operating room where general anesthesia was obtained and noted to be adequate. SCDs were placed for thromboembolism prophylaxis and found to be working. The patient was placed in the dorsal lithotomy position using yellowfin stirrups. Timeout verified the correct patient and procedure. The patient was prepped and draped in a usual sterile fashion. A catheter was used to drain her bladder. An acorn uterine manipulator was placed and my top gloves were removed. 10mL of Lidocaine with epinepherine was injected infraumbilically and a scalpel was used to make a 5 mm infraumbilical incision with the assistance from a hemostat. The skin was tented and Optiview blunt trocar was introduced into the abdomen in the usual fashion. The trocar was not long enough and insufflated the subcutaneous tissue. A long 5 mm trocar was obtained and was attempted to be inserted into the infraumbilical incision. Secondary to the significant subcutaneous insufflation abdominal access was obtained. An incision was made in Burkett's point after confirming that the gastric contents had been emptied at the start of the case. Access was failed at this point as well. 1 final attempt using the graspers to tent the skin was done at the infraumbilical incision. Abdominal access was obtained. CO2 gas was connected with an initial pressure of 10 mmHg noted. Pneumoperitoneum was created to a pressure of 15 mmHg. The laparoscopic camera was inserted and a quick survey of the abdomen revealed grossly normal anatomy. The uterus appeared to be anteverted with a normal size shape and contour. The patient was placed in Trendelenburg. 10mLs of local anesthetic was injected and a 5mm incision was then made in the right lower quadrant with careful attention to avoid the rectus muscles and vasculature and under direct laparoscopic visualization a blunt trocar was introduced into the abdominal cavity. This process was repeated on the left side. Secondary to poor visualization the pneumoperitoneum pressure was increased to 20 mmHg. Per anesthesia the patient was tolerating this well. The fallopian tubes were identified on the cornu of the uterus and followed out to the ovaries which revealed grossly appearing anatomy. A grasper was used to elevate the left fallopian tube. The Ligasure was used to grasp the fimbriated end of the fallopian tube, ensuring complete removal of the fimbriae, it was clamped, coagulated and transected. This process was repeated serially working towards the uterus to allow complete removal of the fallopian tube. Careful attention was given to transected the Mesosalpinx proximal to the fallopian tube. The fallopian tube was removed from the abdominal cavity and passed off the operative field to be sent to pathology. Hemostasis was noted. Attention was then turned to the right fallopian tube and the process was repeated. Hemostasis was noted and the tube was removed along with the trocar and handed off the operative field to be sent to pathology. Pneumoperitoneum reduced, and all ports removed. The 4 abdominal incisions were closed with a single simple interrupted suture using 4-0 Monocryl. Dermabond was applied to each skin incision. The [place] uterine manipulator was removed. The cervix was only slightly dilated to allow entry to the ectocervix and hydrodisection was used to get the scope the rest of the way into the cavity. The hysterscope was inserted and diffusely proliferative endometrium was noted. Images of each tubal ostia were obtained. MyoSure had previously been assembled, primed, and zeroed. The device was used to resect the outer diaz of the endometrium. At the conclusion of the procedure there was a fluid deficit of 600mLs. Total myosure cutting time was 1.61minutes. Following complete removal of the polyps the MyoSure hysteroscope was removed.?The single-tooth tenaculum was removed and hemostasis was noted at the tenaculum sites.? All instruments we re removed from the vagina.? All counts were correct, per nursing.? This concluded the procedure, the patient was awakened from anesthesia, and transferred to the PACU in stable condition. She will be discharged after meeting all DC criteria to include voiding, ambulating and tolerating PO independently. Condition: stable Disposition: same day Specimens:: Bilateral fallopian tubes Endometrial curettings Complications:: None
--- NOTE | 2023-08-02 13:44 | P.PNANES_ITS ---
[facility] Anesthesia Record Part II Anesthesia Record Part II Discharge Time: 09:38 Destination: Surgical Day Care (OP Surgery) PACU nurse assessment reviewed?: Yes Patient Condition:: Good Anesthesia Complications:: None Swallowing reflex intact?: Yes Airway Patency: Patent Cyanosis?: No Blood Pressure: 132/76 SaO2: 98 Respiratory Rate: 17 Pulse Rate: 67 Temperature: 97.4 F Mental Status: Alert & Oriented Pain level:: 3 Nausea and/or vomitting:: None Intake, IV Amount: 0 Hydration: Adequate
[2023-08-02 13:45] VITALS: BP 132/76; PULSE 67; RESP 17; TEMP 36.3; O2SAT 98
== END 2023-08-01 09:57 | disposition home or self-care (01) ==
PROVIDERS: Visit Provider Obstetrics & Gynecology
PROC: 0U5B8ZZ Destruction of Endometrium, Via Natural or Artificial Opening Endoscopic (ICD-10-PCS; CPT 58563; principal; 2023-08-01 07:30)
PROC: (CPT 58558; 2023-08-01 07:30)
DX: Z30.2 Encounter for sterilization (principal); N93.9 Abnormal uterine and vaginal bleeding, unspecified; N92.0 Excessive and frequent menstruation with regular cycle; D64.9 Anemia, unspecified; N83.8 Other noninflammatory disorders of ovary, fallopian tube and broad ligament; N71.9 Inflammatory disease of uterus, unspecified; N84.0 Polyp of corpus uteri
CPT/HCPCS: 58558; 58661; 88302; 88305; 96374; J2405; J2710

== ENCOUNTER 2023-08-27 11:05 | Day surgery (SDC) | payer MEDICARE, OTHER, SELFPAY ==
[2023-08-27 11:27] VITALS: BP 127/81; PULSE 90; RESP 16; TEMP 36.5; O2SAT 100; BMI 48.1
--- NOTE | 2023-08-27 11:37 | P.PCN_ITS ---
Procedure Date: 08/27/23 Time: 11:25 Anesthesiologist:: Bandar Eisenberg CRNA Complications:: None Pre-procedure Diagnosis:: Degenerative disc lumbar spine multilevels. Lumbar spondylosis. Lumbar radiculopathy. Lumbar facet arthropathy. Post-procedure Diagnosis:: Same. Indications for Procedure:: Patient is a pleasant 27-year-old female that comes our clinic today for bilateral L4-5, L5-S1 medial branch block/facet injection. Patient describes low back pain is constant, dull, aching. She reports difficulty with lumbar flexion, extension, left and right rotation. She rates her pain 7/10. Procedure Details:: Informed consent was obtained and the risk and benefits of the procedure was explained to the patient. Patient was taken to the procedure room where noninvasive monitors were placed, including noninvasive blood pressure cuff as well as pulse oximeter. The area over the lumbar spine was cleansed using chlorhexidine as a cleansing solution. I anesthetized the skin and subcutaneous tissues with 1% Lidocaine. I placed 22-gauge spinal needles into the facet joint/ medial branches of L4-L5, and L5-S1] bilaterally. Needle placement was confirmed with fluoroscopy. After confirmation of needle placement, each site was injected with 1 mL of 1% lidocaine and 0.25 % Marcaine and 10 mg of Depo- Medrol. A total of 80 mg of depo medrol was used for bilateral medial branch blocks of L4-L5, and L5-S1] bilaterally. Patient tolerated the procedure without difficulty. There were no complications. Plan and Disposition:: Patient was discharged without incident.
[2023-08-27 11:40] VITALS: BP 117/77; PULSE 83; RESP 18; O2SAT 100
[2023-08-27] MEDS: LIDOCAINE 1% 5ML PF VIAL 5 ML (11:41)
[2023-08-27] MEDS: BUPIVACAINE 0.25% 10ML INJ 25 MG IJ (11:41)
[2023-08-27] MEDS: methylPREDNISolone ACETATE 80MG/ML VIAL 80 MG (11:41)
== END 2023-08-27 11:40 | disposition home or self-care (01) ==
PROVIDERS: PCP Nurse Practitioner; Visit Provider Nurse Anesthetist, Certified Registered
DX: M47.896 Other spondylosis, lumbar region (principal); M51.16 Intervertebral disc disorders with radiculopathy, lumbar region
CPT/HCPCS: 64493; 64494; J1010

== ENCOUNTER 2023-09-10 13:49 | Outpatient (CLI) | payer MEDICARE, OTHER, SELFPAY ==
[2023-09-10 14:20] LABS: Basophils # 0.1 K/mm3 (0-0.2); Basophils % 0.8 % (0.1-2.0); Eosinophils # 0.2 K/mm3 (0.0-0.4); Eosinophils % 1.5 % (0.1-12.0); Hematocrit 39.7 % (37.0-47.0); Hemoglobin 12.9 g/dL (12.2-16.2); Lymphocytes # 4.2 K/mm3 (0.7-4.5); Lymphocytes % 29.3 % (10-50); Mean Corpuscular HGB Conc 32.4 g/dL (31.8-35.4); Mean Corpuscular Volume 86.4 fl (81-99); Mean Platelet Volume 7.3 fl (7.4-10.4); Monocytes # 0.8 K/mm3 (0.1-1.0); Monocytes % 5.5 % (1.7-9.3); Neutrophils % 62.8 % (37.0-80.0); Platelet Count 408 K/mm3 (142-424); Red Blood Count 4.59 M/mm3 (4.20-5.40); Red Cell Distribution Width 13.9 % (11.5-17.5); White Blood Count 14.4 K/mm3 (4.8-10.8)
[2023-09-10 15:08] LABS: Iron 55 ug/dL (37-170)
[2023-09-10 15:18] LABS: Total Iron Binding Capacity 355 ug/dL (265-497)
[2023-09-10 15:44] LABS: Ferritin 41.1 ng/ml (6.24-137)
== END 2023-09-10 23:59 | disposition home or self-care (01) ==
LOC: LAB 13:50
PROVIDERS: PCP Nurse Practitioner; Visit Provider Internal Medicine Medical Oncology
DX: D50.9 Iron deficiency anemia, unspecified (principal)
CPT/HCPCS: 36415; 82728; 83540; 83550; 85025

== ENCOUNTER 2023-09-10 14:50 | Outpatient (POV) | payer MEDICARE, OTHER, SELFPAY | END 2023-09-10 23:59 | disposition home or self-care (01) | LOC: SC 14:50 | PROVIDERS: PCP Nurse Practitioner; Visit Provider Dermatology | DX: Z00.00 Encounter for general adult medical examination without abnormal findings (principal) ==

== ENCOUNTER 2023-09-11 10:28 | Outpatient (POV) | payer MEDICARE, OTHER, SELFPAY ==
[2023-09-11 11:04] VITALS: BP 116/79; PULSE 89; RESP 18; O2SAT 100; BMI 48.1
--- NOTE | 2023-09-11 13:30 | EXP.PAIN.SOA ---
[facility] Pain Management SOAP Note Subjective:: Patient is a pleasant 27-year-old female who presents today for follow-up of her first lumbar medial branch block bilaterally L4-L5 and L5-S1 on 08/27/2023. Today she rates her pain a 7 out of 10. Patient denies any new trauma or injury. She does state that she got at least 50% improvement following this injection however it only lasted for a day. Patient states she was able to increase her activity with decreased overall pain and felt more functional. Patient does state that she would like to repeat this injection. Patient has tried and failed conservative therapies including oral medication, heat and ice, topicals, physical therapy, continued at home exercising and stretching between injections. Patient does state that she did have her tubal and D&C and everything went good with that. Patient is currently prescribed duloxetine 20 mg twice a day from our office. She denies any side effects from this medication. Her Luis Alberto has been reviewed and is appropriate. Review of Systems: General: No recent weight changes, no fever, no sleep disturbances Respiratory: No cough, no shortness of air, no recurring pulmonary infections Cardiovascular/peripheral vascular: No chest pain, no palpitations, no edema, no shortness of breath Gastrointestinal: No new onset incontinence, normal bowel movements reported Genitourinary: No new onset incontinence Musculoskeletal: Low back pain Psychiatric: [Normal mood/affect] Neurological: [Denies weakness in extremities], [denies balance issues] Objective:: Physical Exam: General: Alert and oriented x3, no acute distress, pleasant and cooperative Lungs: Respirations even and unlabored, symmetrical chest expansion Eyes: PERRL Musculoskeletal: Flexion and extension of lumbar [spine] somewhat guarded secondary to pain, [antalgic gait noted] positive Kemps test Neurological: Speech clear, no gross sensory deficit Assessment:: Low back pain with sacroiliitis, bilateral hip pain, left knee pain, lumbar facet arthropathy Plan:: Patient had significant improvement following this injection of 50% relief however only lasted 1 day. Patient is back to her baseline with limited range of motion of her lumbar spine and a positive Kemps test. I have discussed with the patient that we will proceed forward with her second lumbar medial branch block. Risk and benefits were discussed with patient and she would like to proceed forward with this plan of care. I have discussed with patient that if she does get significant relief we will proceed forward with a lumbar ablation at a later date. Patient acknowledges understanding and agrees with this plan of care. I will refill the patient's duloxetine and provide a 3-month supply of this medication. Patient will be scheduled for her second lumbar medial branch block bilaterally L4-L5 and L5-S1 under fluoroscopy. Patient has been instructed to contact the clinic with any concerns before the next appointment. Dr. Jain has reviewed this note and agrees with this plan of care. This note was dictated using voice recognition software and make contain errors or omissions. [facility] Disclaimer: The information contained in this section may have been updated after the patient was seen, as this information can be updated by other users. Medical History ADHD Degenerative disc disease, lumbar Sleep apnea Anxiety Depression Menorrhagia Thrombocytosis Microcytic anemia Surgical History Hx of bilateral salpingectomy History of laparoscopic cholecystectomy History of appendectomy Family History Other Anemia Cancer Diabetes FHx: mental illness Hyperlipidemia Hypertension Stroke Social History Smoking Status: Never smoker alcohol intake: never substance use type: denies use current occupational status: other Travel in the last 8 weeks: None household members: family housing: house
== END 2023-09-11 23:59 | disposition home or self-care (01) ==
PROVIDERS: Visit Provider Nurse Practitioner Family
DX: M47.896 Other spondylosis, lumbar region (principal); M54.50 Low back pain, unspecified; M46.1 Sacroiliitis, not elsewhere classified; M25.551 Pain in right hip; M25.552 Pain in left hip; M25.562 Pain in left knee
CPT/HCPCS: 99212; G0463

== ENCOUNTER 2023-10-09 11:11 | Outpatient (POV) | payer MEDICARE, OTHER, SELFPAY ==
[2023-10-09 11:28] VITALS: BP 108/53; PULSE 78; RESP 18; O2SAT 99; BMI 47.0
--- NOTE | 2023-10-09 11:33 | A.OFFVIS_ITS ---
[facility] Pain Management SOAP Note Subjective:: Patient is a pleasant 28-year-old female who presents today for insurance denial of her second lumbar medial branch blocks. Today she rates her pain a 7 out of 10. She denies any new trauma or injury. She states she continues to have the chronic low back pain and denies radiating symptoms into her legs currently. Patient has tried multiple injections with temporary relief. Patient is currently prescribed duloxetine 20 mg twice a day from our office. She denies any side effects from this medication. Her Luis Alberto has been reviewed and is appropriate. Review of Systems: General: No recent weight changes, no fever, no sleep disturbances Respiratory: No cough, no shortness of air, no recurring pulmonary infections Cardiovascular/peripheral vascular: No chest pain, no palpitations, no edema, no shortness of breath Gastrointestinal: No new onset incontinence, normal bowel movements reported Genitourinary: No new onset incontinence Musculoskeletal: Low back pain Psychiatric: [Normal mood/affect] Neurological: [Denies weakness in extremities], [denies balance issues] Objective:: Physical Exam: General: Alert and oriented x3, no acute distress, pleasant and cooperative Lungs: Respirations even and unlabored, symmetrical chest expansion Eyes: PERRL Musculoskeletal: Flexion and extension of lumbar [spine] somewhat guarded secondary to pain Neurological: Speech clear, no gross sensory deficit Assessment:: Low back pain with sacroiliitis, bilateral hip pain, left knee pain, lumbar facet arthropathy Plan:: Patient continues to experience significant pain throughout her low back however due to the patient not having 80% relief with her first lumbar medial branch block her insurance did deny the second injection. I have counseled the patient that we can try lidocaine patches twice a day to see if this improves her overall pain. I have also discussed at length that studies have found that the combination of the 1000 mg acetaminophen and 400 mg ibuprofen have been just as effective if not more in comparison to opioid pain medications. Patient has been counseled to try this combination and to continue to take her duloxetine as prescribed. Patient is agreeable to this plan of care. Patient will return to clinic in 1 month for reevaluation of symptoms and plan of care. Patient has been instructed to contact the clinic with any concerns before the next appointment. Dr. Jain has reviewed this note and agrees with this plan of care. This note was dictated using voice recognition software and make contain errors or omissions. [facility] Disclaimer: The information contained in this section may have been updated after the patient was seen, as this information can be updated by other users. Medical History ADHD Degenerative disc disease, lumbar Sleep apnea Anxiety Depression Menorrhagia Thrombocytosis Microcytic anemia Surgical History Hx of bilateral salpingectomy History of laparoscopic cholecystectomy History of appendectomy Family History Other Anemia Cancer Diabetes FHx: mental illness Hyperlipidemia Hypertension Stroke Social History Smoking Status: Never smoker alcohol intake: never substance use type: denies use current occupational status: unemployed Travel in the last 8 weeks: None household members: family housing: house
== END 2023-10-09 23:59 | disposition home or self-care (01) ==
PROVIDERS: Visit Provider Nurse Practitioner Family
DX: M54.50 Low back pain, unspecified (principal); M46.1 Sacroiliitis, not elsewhere classified; M25.551 Pain in right hip; M25.552 Pain in left hip; M25.562 Pain in left knee; M47.816 Spondylosis without myelopathy or radiculopathy, lumbar region
CPT/HCPCS: 99212; G0463

== ENCOUNTER 2023-12-30 09:46 | Outpatient (CLI) | payer MEDICARE, OTHER, SELFPAY ==
[2023-12-30 11:00] LABS: Basophils % 0.5 % (0.1-2.0); Eosinophils # 0.4 K/mm3 (0.0-0.4); Eosinophils % 3.8 % (0.1-12.0); Hematocrit 30.8 % (37.0-47.0); Hemoglobin 9.1 g/dL (12.2-16.2); Lymphocytes # 2.6 K/mm3 (0.7-4.5); Lymphocytes % 27.8 % (10-50); Mean Corpuscular HGB Conc 29.4 g/dL (31.8-35.4); Mean Corpuscular Hemoglobin 19.4 pg (27.0-31.2); Mean Platelet Volume 7.5 fl (7.4-10.4); Monocytes # 0.5 K/mm3 (0.1-1.0); Monocytes % 5.2 % (1.7-9.3); Neutrophils # 5.9 K/mm3 (1.8-7.8); Neutrophils % 62.8 % (37.0-80.0); Platelet Count 529 K/mm3 (142-424); Red Blood Count 4.68 M/mm3 (4.20-5.40); Red Cell Distribution Width 17.9 % (11.5-17.5); White Blood Count 9.4 K/mm3 (4.8-10.8)
[2023-12-30 11:07] LABS: Albumin Level 3.8 g/dl (3.5-5.0); Chloride 108 mmol/L (98-107); Sodium 140 mmol/L (136-145)
[2023-12-30 11:10] LABS: Alanine Aminotransferase 19 U/L (12-78); Albumin/Globulin Ratio 1.2 (1.1-1.8); Alkaline Phosphatase 104 U/L (38-126); Aspartate Amino Transferase 25 U/L (14-36); Bilirubin,Total 0.5 mg/dl (0.2-1.3); Blood Urea Nitrogen 10 mg/dl (7-17); Calcium 9.1 mg/dl (8.4-10.2); Carbon Dioxide 26 mmol/L (22.0-30.0); Estimated Glomerular Filt Rate 84 ml/min (>60); GFR (African American) 102 ML/MIN (>60); Globulin 3.1 g/dL (1.3-3.2); Glucose 96 mg/dl (74-100); Total Protein,Serum 6.9 g/dl (6.3-8.2)
[2023-12-30 11:28] LABS: HCG,Quantitative < 2 mIU/ml (0-5.42)
== END 2023-12-30 23:59 | disposition home or self-care (01) ==
LOC: LAB 09:48
PROVIDERS: PCP Nurse Practitioner; Visit Provider Obstetrics & Gynecology
DX: N92.0 Excessive and frequent menstruation with regular cycle (principal); R10.2 Pelvic and perineal pain
CPT/HCPCS: 36415; 80053; 84702; 85025; 86850

== ENCOUNTER 2024-02-18 15:34 | Outpatient (CLI) | payer MEDICARE, OTHER, SELFPAY ==
[2024-02-18 16:14] LABS: Basophils # 0.1 K/mm3 (0-0.2); Basophils % 0.6 % (0.1-2.0); Eosinophils # 0.2 K/mm3 (0.0-0.4); Eosinophils % 1.9 % (0.1-12.0); Hematocrit 31.9 % (37.0-47.0); Hemoglobin 9.9 g/dL (12.2-16.2); Lymphocytes # 3.2 K/mm3 (0.7-4.5); Lymphocytes % 27.9 % (10-50); Mean Corpuscular HGB Conc 30.9 g/dL (31.8-35.4); Mean Corpuscular Hemoglobin 20.7 pg (27.0-31.2); Mean Corpuscular Volume 67.1 fl (81-99); Mean Platelet Volume 6.8 fl (7.4-10.4); Monocytes # 0.7 K/mm3 (0.1-1.0); Monocytes % 5.9 % (1.7-9.3); Neutrophils # 7.3 K/mm3 (1.8-7.8); Neutrophils % 63.6 % (37.0-80.0); Platelet Count 442 K/mm3 (142-424); Red Blood Count 4.75 M/mm3 (4.20-5.40); Red Cell Distribution Width 20.7 % (11.5-17.5); White Blood Count 11.5 K/mm3 (4.8-10.8)
[2024-02-18 17:55] LABS: Ferritin 4.74 ng/ml (6.24-137)
== END 2024-02-18 23:59 | disposition home or self-care (01) ==
LOC: LAB 15:35
PROVIDERS: Visit Provider Obstetrics & Gynecology
DX: D50.9 Iron deficiency anemia, unspecified (principal)
CPT/HCPCS: 36415; 82728; 85025

== ENCOUNTER 2024-03-05 12:09 | Outpatient (CLI) | payer MEDICARE, OTHER, SELFPAY ==
[2024-03-05 12:15] VITALS: BP 139/96; PULSE 82; RESP 16; O2SAT 99; BMI 43.5
[2024-03-05] MEDS: SODIUM CHLORIDE 0.9% 10ML FLUSH SYRINGE 10 ML IV (12:25)
[2024-03-05] MEDS: SODIUM CHLORIDE 0.9% 50ML BAG 50 ML IV (12:28)
[2024-03-05] MEDS: IRON SUCROSE COMPLEX 200 MG in 0.9 % SODIUM CHLORIDE 100 ML 220 MG IV (12:28)
[2024-03-05 13:12] VITALS: BP 159/74; PULSE 72; RESP 16; O2SAT 100
== END 2024-03-05 13:14 | disposition home or self-care (01) ==
LOC: INF 12:12
PROVIDERS: PCP Nurse Practitioner; Visit Provider Internal Medicine Medical Oncology
DX: D50.9 Iron deficiency anemia, unspecified (principal)
CPT/HCPCS: 96365; J1756

== ENCOUNTER 2024-03-10 19:19 | Emergency (ER) | payer MEDICARE, OTHER, SELFPAY ==
[2024-03-10 19:35] VITALS: BP 136/86; PULSE 89; RESP 18; TEMP 37.1; O2SAT 99; BMI 43.9
--- NOTE | 2024-03-10 19:50 | ED_ITS ---
Discharge Plan Disposition Patient Disposition: Home, Self-Care Condition: Good Prescriptions Prescriptions: New amoxicillin-pot clavulanate 875-125 mg Tablet 1 tab PO Q12H 7 Days Qty: 14 0RF fluticasone propionate [Flonase Allergy Relief] 50 mcg/actuation spray,suspension 1 - 2 spray intranasal DAILY Qty: 16 0RF Rx Instructions: administer into each nostril Referrals Follow up/Referrals: Jasmin Naik APRN [Primary Care Provider] - See instructions Activity Restrictions/Add. Instructions Additional Instructions/Restrictions: *Monitor Temp, Over the counter Motrin or Tylenol as directed/as needed Tylenol every 4 hours and Motrin every 6 hours (as long as your family doctor has told you that you can take it) for fever or pain. and straight to ER if unable to lower temp less than 101.0 after medication given Take medication as prescribed *Sleep elevated *Humidifier/Vaporizer *Flonase 2 sprays in each nostril daily but be aware that it may take 2-3 days before you notice improvement Follow up IMMEDIATELY for new or worsening symptoms or no Noticeable improvement over the next 48-72 hours. 911 for difficulty breathing or swallowing Clinical Impressions Clinical Impression: Sinusitis Instructions Patient Instructions: DI for Sinusitis, Amoxicillin and Clavulanic Acid Print Language Print Language: [place]i Discharge ED Provider: Zeina Shoemaker [facility] General Stated complaint: jemma, feels clammy Mode of Arrival: Ambulatory Source of Information: Patient Limitations: No Limitations Time Seen by Provider: 03/10/24 19:51 Description of Symptoms (Recalled from Triage Doc. by RN): PATIENT C/O CONGES TION THAT STARTED THIS MORNING HEENT Symptoms (Recalled from RN notes): Yes Resp Symptoms (Recalled from RN notes): No Skin Symptoms (Recalled from RN notes): No MS Symptoms (Recalled from RN notes): No Functional Status (Recalled from RN notes): WNL History of Present Illness Provider Complaint: Patient states that she has been having sinus congestion and pressure since last week but seems worse from this morning and having hot flashes and sweating at times not sure if she may have a fever she didnt check it States this evening the pressure in her sinuses was worse so she came in Related Data Previous Rx's ?Medication ?Instructions ?Recorded amoxicillin 875 mg-potassium 1 tab PO Q12H 7 days #14 tabs 03/10/24 clavulanate 125 mg tablet fluticasone propionate 50 1 - 2 spray intranasal DAILY #16 03/10/24 mcg/actuation nasal grams spray,suspension (Flonase Allergy Relief) Allergies Allergy/AdvReac Type Severity Reaction Status Date / Time No Known Allergies Allergy Verified 02/26/24 11:55 Worker's Comp Is this a Worker's Comp case?: No PFSH PFS Disclaimer: The information contained in this section may have been updated after the patient was seen, as this information can be updated by other users. Medical History Bilateral sacroiliitis Bilateral hip pain Low back pain ADHD Degenerative disc disease, lumbar Sleep apnea Anxiety Depression Menorrhagia Thrombocytosis Microcytic anemia Surgical History Hx of bilateral salpingectomy History of laparoscopic cholecystectomy History of appendectomy Family History Other Anemia Cancer Diabetes FHx: mental illness Hyperlipidemia Hypertension Stroke Social History Smoking Status: Never smoker alcohol intake: never substance use type: denies use current occupational status: unemployed Travel in the last 8 weeks: None household members: family housing: house ROS Obtained: Yes All systems reviewed & no additional complaints except as d ocumented and Yes Systems reviewed as appropriate & no additional complaints except as documented Constitutional Constitutional: Reports system reviewed and no additional complaints, except as documented, Reports as per HPI and Reports headache(s) ENT Ears, Nose, Mouth, and Throat: Reports system reviewed and no additional complaints, except as documented, Reports as per HPI, Reports headache(s), Reports sinus pain and Reports sinus pressure Cardiovascular Cardiovascular: Reports system reviewed and no additional complaints, except as documented and Reports as per HPI Respiratory Respiratory: Reports system reviewed and no additional complaints, except as documented and Reports as per HPI Gastrointestinal Gastrointestingal: Reports system reviewed and no additional complaints, except as documented and as per HPI Neurologic Neurologic: Reports headache(s) Physical Exam General General appearance: alert and in no apparent distress Eye Eye exam: Present normal appearance, PERRL and EOMI ENT ENT exam: Present normal exam, normal oropharynx, mucous membranes moist and TM's normal bilaterally Expanded ENT Exam Nose exam: Present sinus tenderness Throat exam: Present other (PND noted) Respiratory Respiratory exam: Present normal lung sounds bilaterally; Absent respiratory distress or wheezes Cardiovascular Cardiovascular exam: Present regular rate, normal rhythm and normal heart sounds Neurological Exam Neurological exam: Present alert, oriented X3 and normal gait Medical Decision Making Medical Records Screening: Per USPSTF and CDC recommendations, given the prevalence of disease in our region, it is our hospital?s policy to screen for HIV and viral Hepatitis for all patients aged 18 and over and those with ongoing risk factors. Luis Alberto Inquiry Pt receiving controlled substance: No Luis Alberto was queried for this patient: No Vital Signs: 03/10/24 19:35 Temperature 98.7 F Temperature Source Oral Pulse Rate [Left Brachial] 89 Respiratory Rate 18 Blood Pressure [Left Arm] 136/86 Blood Pressure Mean [Left Arm] 102 Blood Pressure Source [Left Arm] Automatic Cuff Blood Pressure Position [Left Arm] Sitting 02 Sat by Pulse Oximetry 99 Oxygen Delivery Method Room Air
[2024-03-10 19:55] VITALS: BP 136/86; PULSE 89; RESP 18; TEMP 37.1; O2SAT 99
== END 2024-03-10 19:57 | disposition home or self-care (01) ==
PROVIDERS: Emergency Provider Nurse Practitioner; PCP Nurse Practitioner
DX: J01.80 Other acute sinusitis (principal)
CPT/HCPCS: 99213; G0381

== ENCOUNTER 2024-03-12 11:46 | Outpatient (CLI) | payer MEDICARE, OTHER, SELFPAY ==
[2024-03-12] MEDS: SODIUM CHLORIDE 0.9% 50ML BAG 50 ML IV (12:13)
[2024-03-12] MEDS: SODIUM CHLORIDE 0.9% 10ML FLUSH SYRINGE 10 ML IV (12:13)
[2024-03-12] MEDS: IRON SUCROSE COMPLEX 200 MG in 0.9 % SODIUM CHLORIDE 100 ML 220 MG IV (12:13)
[2024-03-12 12:20] VITALS: BP 130/74; PULSE 66; RESP 16; TEMP 36.6; O2SAT 99
[2024-03-12 13:00] VITALS: BP 124/78; PULSE 79; RESP 14; TEMP 36.6; O2SAT 99
== END 2024-03-12 13:05 | disposition home or self-care (01) ==
LOC: INF 11:48
PROVIDERS: PCP Nurse Practitioner; Visit Provider Internal Medicine Medical Oncology
DX: D50.9 Iron deficiency anemia, unspecified (principal)
CPT/HCPCS: 96365; J1756

== ENCOUNTER 2024-03-18 12:03 | Outpatient (CLI) | payer MEDICARE, OTHER, SELFPAY ==
[2024-03-18 12:25] VITALS: BP 115/73; PULSE 73; RESP 16
[2024-03-18] MEDS: IRON SUCROSE COMPLEX 200 MG in 0.9 % SODIUM CHLORIDE 100 ML 220 MG IV (12:25)
[2024-03-18] MEDS: SODIUM CHLORIDE 0.9% 50ML BAG 50 ML IV (12:25)
[2024-03-18 12:55] VITALS: BP 125/79; PULSE 79; RESP 16
== END 2024-03-18 13:10 | disposition home or self-care (01) ==
LOC: INF 12:08
PROVIDERS: PCP Nurse Practitioner; Visit Provider Internal Medicine Medical Oncology
DX: D50.9 Iron deficiency anemia, unspecified (principal)
CPT/HCPCS: 96365; J1756

== ENCOUNTER 2024-03-25 11:55 | Outpatient (CLI) | payer MEDICARE, OTHER, SELFPAY ==
[2024-03-25 12:25] VITALS: BP 115/65; PULSE 74; RESP 16; O2SAT 99
[2024-03-25] MEDS: IRON SUCROSE COMPLEX 200 MG in 0.9 % SODIUM CHLORIDE 100 ML 220 MG IV (12:25)
[2024-03-25] MEDS: SODIUM CHLORIDE 0.9% 50ML BAG 50 ML IV (12:25)
[2024-03-25 12:55] VITALS: BP 108/67; PULSE 72; RESP 16
== END 2024-03-25 13:05 | disposition home or self-care (01) ==
LOC: INF 11:59
PROVIDERS: PCP Nurse Practitioner; Visit Provider Internal Medicine Medical Oncology
DX: D50.9 Iron deficiency anemia, unspecified (principal)
CPT/HCPCS: 96365; J1756

== ENCOUNTER 2024-03-27 09:54 | Outpatient (POV) | payer MEDICARE, OTHER, SELFPAY ==
--- NOTE | 2024-03-27 10:26 | A.OFFVIS_ITS ---
[facility] Disclaimer: The information contained in this section may have been updated after the patient was seen, as this information can be updated by other users. Medical History Bilateral sacroiliitis Bilateral hip pain Low back pain ADHD Degenerative disc disease, lumbar Sleep apnea Anxiety Depression Menorrhagia Thrombocytosis Microcytic anemia Surgical History Hx of bilateral salpingectomy History of laparoscopic cholecystectomy History of appendectomy Family History Other Anemia Cancer Diabetes FHx: mental illness Hyperlipidemia Hypertension Stroke Social History Smoking Status: Never smoker alcohol intake: never substance use type: denies use current occupational status: unemployed household members: family housing: house PM Subjective & Objective Subjective Subjective:: Patient is a pleasant 28-year-old female who presents today for worsening pain. Today she rates her pain a 10 out of 10. She states the pain is only in her mid back that radiates down to her low back. She states the pain is constant and has not had any new injuries or falls from her last visit. Patient was previously tried on several anti-inflammatories including Celebrex, meloxicam and diclofenac as well as muscle relaxers with minimal relief. Patient states she has tried to continue oral medications, heat and ice and topicals along with continued at home stretching exercise for longer than 12 weeks with no additional changes. Patient does state the mid back pain is interfering with her ability to perform activities of daily living such as cooking and cleaning. Her Luis Alberto has been reviewed and is appropriate. Review of Systems: General: No recent weight changes, no fever, no sleep disturbances Respiratory: No cough, no shortness of air, no recurring pulmonary infections Cardiovascular/peripheral vascular: No chest pain, no palpitations, no edema, no shortness of breath Gastrointestinal: No new onset incontinence, normal bowel movements reported Genitourinary: No new onset incontinence Musculoskeletal: Mid back pain Psychiatric: [Normal mood/affect] Neurological: [Denies weakness in extremities], [denies balance issues] Pain at rest (0-10 scale): 10 Objective Objective:: Physical Exam: General: Alert and oriented x3, no acute distress, pleasant and cooperative Lungs: Respirations even and unlabored, symmetrical chest expansion Eyes: PERRL Musculoskeletal: Flexion and extension of thoracic [spine] somewhat guarded secondary to pain Neurological: Speech clear, no gross sensory deficit Has patient had previous pain injection?: No Conservative treatment options previously tried: Home exercise plan Length of treatment: Longer than 12 weeks Meds Home Medications and Allergies Home Medications ?Medication ?Instructions ?Recorded ?Confirmed ?Type dicyclomine 10 mg capsule 10 mg PO TID PRN abdominal pain 03/24/24 03/25/24 Rx #90 caps New Prescriptions to Start Prescriptions: Allergies Allergy/AdvReac Type Severity Reaction Status Date / Time No Known Allergies Allergy Verified 03/24/24 11:13 Assessment and Plan *Assessment and plan (1) Mid back pain: Status: Acute Category: Medical Code(s): M54.9 - Dorsalgia, unspecified Plan Due to the patient's severe complaints of mid back pain that does radiate down into her low back I will order additional imaging including x-ray and MRI without contrast. Patient has not had any updated imaging of her thoracic spine for over a year. Patient will return to clinic in 1 month for reevaluation of symptoms and plan of care. Patient did have a strong odor of marijuana present during today's visit. Patient has been instructed to contact the clinic with any concerns before the next appointment. Dr. Jain has reviewed this note and agrees with this plan of care. This note was dictated using voice recognition software and make contain errors or omissions. All injections are used with Lidocaine or Bupivacaine and Depo Medrol.
[2024-03-27 10:46] VITALS: BP 113/76; PULSE 74; RESP 16; O2SAT 100; BMI 42.0
== END 2024-03-27 23:59 | disposition home or self-care (01) ==
LOC: SC.PAIN 09:55
PROVIDERS: PCP Nurse Practitioner; Visit Provider Nurse Practitioner Family
DX: M54.9 Dorsalgia, unspecified (principal); Z73.89 Other problems related to life management difficulty
CPT/HCPCS: 99212; G0463

== ENCOUNTER 2024-04-01 11:35 | Outpatient (CLI) | payer MEDICARE, OTHER, SELFPAY ==
[2024-04-01 11:56] VITALS: BP 115/76; PULSE 82; RESP 18; TEMP 36.4; O2SAT 99
[2024-04-01] MEDS: SODIUM CHLORIDE 0.9% 50ML BAG 50 ML IV (11:56)
[2024-04-01] MEDS: SODIUM CHLORIDE 0.9% 10ML FLUSH SYRINGE 10 ML IV (11:56)
[2024-04-01] MEDS: IRON SUCROSE COMPLEX 200 MG in 0.9 % SODIUM CHLORIDE 100 ML 220 MG IV (11:56)
[2024-04-01 12:30] VITALS: BP 120/71; PULSE 88; RESP 18; O2SAT 99
--- NOTE | 2024-04-01 12:45 | XR_ITS ---
FINAL REPORT CLINICAL HISTORY: .PAIN FINDINGS: AP, lateral, and oblique views of the lumbar spine were obtained. There is no acute fracture or acute malalignment. Vertebral body height is preserved. . No acute paraspinal abnormality is identified. IMPRESSION: No acute osseous abnormalities lumbar spine. Reviewed, Interpreted and Dictated by Kelly Rosales MD Transcribed by Shadia Beth Authenticated and [facility]
--- NOTE | 2024-04-01 12:58 | XR_ITS ---
FINAL REPORT CLINICAL HISTORY: PAIN FINDINGS: AP and lateral views of the thoracic spine were obtained. There is no prior exam for comparison. There is no acute fracture or acute malalignment. Vertebral body height is preserved. Disc space height is preserved. No acute paraspinal abnormality. IMPRESSION: No acute osseous abnormality of the thoracic spine. Reviewed, Interpreted and Dictated by Kelly Rosales MD Transcribed by Shadia Beth Authenticated and [facility]
== END 2024-04-01 12:35 | disposition home or self-care (01) ==
PROVIDERS: PCP Nurse Practitioner; Referring Provider Internal Medicine Medical Oncology; Visit Provider Nurse Practitioner Family
DX: M54.50 Low back pain, unspecified (principal)
CPT/HCPCS: 72070; 72110; 96365; J1756

== ENCOUNTER 2024-06-02 13:28 | Outpatient (CLI) | payer MEDICARE, OTHER, SELFPAY ==
[2024-06-02 14:44] LABS: Basophils # 0.1 K/mm3 (0-0.2); Basophils % 0.7 % (0.1-2.0); Eosinophils # 0.2 K/mm3 (0.0-0.4); Eosinophils % 2.4 % (0.1-12.0); Hematocrit 39.4 % (37.0-47.0); Hemoglobin 12.9 g/dL (12.2-16.2); Lymphocytes # 3.2 K/mm3 (0.7-4.5); Lymphocytes % 31.6 % (10-50); Mean Corpuscular HGB Conc 32.7 g/dL (31.8-35.4); Mean Corpuscular Hemoglobin 26.7 pg (27.0-31.2); Mean Corpuscular Volume 81.4 fl (81-99); Mean Platelet Volume 10.1 fl (7.4-10.4); Monocytes # 0.5 K/mm3 (0.1-1.0); Monocytes % 4.5 % (1.7-9.3); Neutrophils # 6.2 K/mm3 (1.8-7.8); Neutrophils % 60.5 % (37.0-80.0); Platelet Count 398 K/mm3 (142-424); Red Blood Count 4.84 M/mm3 (4.20-5.40); Red Cell Distribution Width 16.7 % (11.5-17.5); White Blood Count 10.2 K/mm3 (4.8-10.8)
[2024-06-02 14:48] LABS: Iron 95 ug/dL (37-170)
[2024-06-02 14:57] LABS: Total Iron Binding Capacity 334 ug/dL (265-497)
[2024-06-02 15:25] LABS: Ferritin 77.7 ng/ml (6.24-137)
== END 2024-06-02 23:59 | disposition home or self-care (01) ==
LOC: LAB 13:31
PROVIDERS: PCP Nurse Practitioner; Visit Provider Internal Medicine Medical Oncology
DX: D50.9 Iron deficiency anemia, unspecified (principal)
CPT/HCPCS: 36415; 82728; 83540; 83550; 85025

== ENCOUNTER 2024-07-30 13:46 | Outpatient (POV) | payer MEDICARE, OTHER, SELFPAY ==
[2024-07-30 14:26] VITALS: BP 118/73; PULSE 66; RESP 14; O2SAT 100; BMI 40.9
--- NOTE | 2024-07-30 14:45 | A.OFFVIS_ITS ---
[facility] Disclaimer: The information contained in this section may have been updated after the patient was seen, as this information can be updated by other users. Medical History (Updated 07/30/24 @ 14:48 by Areli Leonard APRN) Low back pain Bilateral sacroiliitis Bilateral hip pain ADHD Degenerative disc disease, lumbar Sleep apnea Anxiety Depression Menorrhagia Thrombocytosis Microcytic anemia Surgical History History of partial hysterectomy Hx of bilateral salpingectomy History of laparoscopic cholecystectomy History of appendectomy Family History Other Anemia Cancer Diabetes FHx: mental illness Hyperlipidemia Hypertension Stroke Social History Smoking Status: Never smoker alcohol intake: never substance use type: denies use current occupational status: other Travel in the last 8 weeks: None household members: family housing: house PM Subjective & Objective Subjective Subjective:: Patient is a pleasant 28-year-old female who presents today for worsening mid back pain. She rates it a 5 out of 10. She denies any new falls or injuries. Patient does state that it is all around her mid back that radiates down to her low back and into her legs. Patient does state the pain interferes with her maldonado lity perform activities of daily living such as cooking and cleaning. Patient is interested in additional injection therapy. Patient has tried and failed conservative therapy. Her Luis Alberto has been reviewed. Review of Systems: General: No recent weight changes, no fever, no sleep disturbances Respiratory: No cough, no shortness of air, no recurring pulmonary infections Cardiovascular/peripheral vascular: No chest pain, no palpitations, no edema, no shortness of breath Gastrointestinal: No new onset incontinence, normal bowel movements reported Genitourinary: No new onset incontinence Musculoskeletal: Mid back pain, rib pain, low back pain, leg pain Psychiatric: [Normal mood/affect] Neurological: [Denies weakness in extremities], [denies balance issues] Pain at rest (0-10 scale): 5 Objective Objective:: Physical Exam: General: Alert and oriented x3, no acute distress, pleasant and cooperative Lungs: Respirations even and unlabored, symmetrical chest expansion Eyes: PERRL Musculoskeletal: Flexion and extension of thoracic [spine] somewhat guarded secondary to pain, point tenderness along lower thoracic spine roughly T11-T12 at the level of her last rib as well as low back Neurological: Speech clear, no gross sensory deficit Has patient had previous pain injection?: No Conservative treatment options previously tried: Home exercise plan Length of treatment: Longer than 12 weeks Meds Home Medications and Allergies Home Medications ?Medication ?Instructions ?Recorded ?Confirmed ?Type dicyclomine 10 mg capsule 10 mg PO TID PRN abdominal pain 03/24/24 07/30/24 Rx #90 caps buspirone 15 mg tablet 15 mg PO DAILY 06/02/24 07/30/24 History guanfacine 2 mg tablet,extended 2 mg PO DAILY 06/02/24 07/30/24 History release 24 hr sertraline 100 mg tablet 100 mg PO DAILY 06/02/24 07/30/24 History New Prescriptions to Start Prescriptions: Allergies Allergy/AdvReac Type Severity Reaction Status Date / Time No Known Allergies Allergy Verified 06/09/24 13:48 Assessment and Plan *Assessment and plan (1) Thoracic radiculopathy: Status: Acute Category: Medical Code(s): M54.14 - Radiculopathy, thoracic region (2) Low back pain: Status: Acute Qualifiers: Chronicity: chronic Back pain laterality: bilateral Sciatica presence: with sciatica Sciatica laterality: bilateral sciatica Qualified Code(s): M54.42 - Lumbago with sciatica, left side; M54.41 - Lumbago with sciatica, right side; G89.29 - Other chronic pain Category: Medical Code(s): M54.50 - Low back pain, unspecified Plan Patient is experiencing worsening pain in her mid/low back with numbness and tingling into her lower extremities. Patient did have limited range of motion of her thoracic spine with point tenderness along the last level of her rib approximately T11-T12. I did discuss with patient that I do believe they would benefit from a thoracic epidural steroid injection. Risk and benefits were discussed with patient and the patient would like to proceed forward with this plan of care. Patient is not on any blood thinners. Patient has tried and failed conservative therapy including continued at home stretching exercise for longer than 12 weeks between injections. Patient has not had any injections at this level. I did also discuss with the patient due to his her updated x-ray imaging we will proceed forward with advanced thoracic imaging of MRI without contrast. We will schedule the patient for an TESI T11-T12 under fluoroscopy. Patient has been instructed to contact the clinic with any concerns before the next appointment. Dr. Jain has reviewed this note and agrees with this plan of care. This note was dictated using voice recognition software and make contain errors or omissions. All injections are used with Lidocaine, Bupivacaine and Depo Medrol. Occasionally urine drug screen is needed to verify patient's compliance with our office pain contract. This is ordered based off specific treatments related to chronic pain with the potential to abuse certain medications.
== END 2024-07-30 23:59 | disposition home or self-care (01) ==
LOC: SC.PAIN 13:51
PROVIDERS: PCP Nurse Practitioner; Visit Provider Nurse Practitioner Family
DX: M54.14 Radiculopathy, thoracic region (principal); M54.42 Lumbago with sciatica, left side; M54.41 Lumbago with sciatica, right side; G89.29 Other chronic pain; Z73.89 Other problems related to life management difficulty
CPT/HCPCS: 99212; G0463

== ENCOUNTER 2024-08-13 12:47 | Outpatient (RCR) | payer MEDICARE, OTHER, SELFPAY ==
--- NOTE | 2024-08-13 16:14 | HMH.PTOPEV ---
PT Outpatient Evaluation Rehab PT Outpatient Evaluation Start: 08/13/24 13:03 Freq: Status: Active Protocol: Document 08/13/24 13:03 OSKAR (Rec: 08/13/24 16:13 OSKAR [id number]) E-signed By Areli Canales, PT Outpatient Therapy Subjective History Subjective History Pt is a 28 y/o female who reports chronic mid and low back pain for years. Pt reports gradual worsening of symptoms overtime without known trauma or injury. Pt reports current symptoms of pain below her bra strap region that extends to the central low back and often refers into the lateral aspect of bilateral hips. Pt reports very rare instances of numbness/tingling from her posterior hips to the anterior thighs to her knee caps and tops of her feet. Pt reports last occurrence a few weeks, states it is worse with rain and cold weather. Pt denies b/ b dysfunction. Pt denies radicular symptoms of the trunk. Pt reports pain is aggravated by prolonged standing, walking, bending/ lifting, and laying flat on her back. Pt reports her back is also very sensitive to light touch. Pt reports she was prescribed a compound cream and has received 2 injections in her back without improvement in symptoms. Per reports, pt had thoracic and lumbar spine radiographs on without acute findings. Pt reports she is scheduled to have a MRI soon. Medical History: Anxiety, Depression, ADHD, Sleep Apnea, Menorrhagia, Thrombocytosis, Microcytic anemia Core strength: 4-/5 New diagnosis of cancer in past 12 No months? Chief Complaint Pain Symptom Type Ache,Throb,Dull,Burning, Numbness Symptoms Relieved By Nothing Symptoms Aggravated By Standing,Bending/Stooping, Physical Activity,Twisting, Walking,Lifting Current Functional Limitations Lifting,Housework,Standing, Squatting,Recreation Activity, Walking,Bending/Stooping Symptom Description Constant but Variable Level of pain today (0-10) 6 Pain scale - at its best (0-10) 6 Pain scale - at its worst (0-10) 10 Lumbopelvic Eval Posture Lumbar Spine Posture Standing Position Increased Lordosis Palapation tenderness bilateral thoracic spinal tenderness Yes lumbar spinal tenderness Yes paraspinal tenderness Yes buttock tenderness Yes: B piriformis, gluteal mm Lumbar/Sacral Palpation Findings Tenderness Lumbar/Sacral Palpation Overall Comment 3-4/4 TTP Accessory Movement T-spine Vertebrae Accessory Movements Central P/A Campbell that Elicit Symptoms T10 bilateral T11 bilateral T12 bilateral L-spine Vertebrae Accessory Movements Central P/A [place] that Elicit Symptoms L2 bilateral L3 bilateral L4 bilateral L5 bilateral S1 bilateral Range of Motion Lumbar Spine Active Flexion Range of 60 Motion (degrees) Lumbar Spine Active Extension Range of 20 Motion (degrees) Left Lumbar Spine Lateral Flexion Active 10 Range of Motion (degrees) Right Lumbar Spine Lateral Flexion 10 Active Range of Motion (degrees) Manual Muscle Test Bilateral Knee Extension Strength Grade 5 Normal Knee Flexion Strength Grade 5 Normal Hip Flexion Strength Grade 5 Normal Hip Abduction Strength Grade 4 Good Hip Adduction Strength Grade 4 Good Hip Extension Strength Grade 3 Fair Ankle Dorsiflexion Strength Grade 5 Normal DTR Rt Patellar 2+ Lt Patellar 2+ Altered Sensation Bilateral LE Dermatome Level L3 Comment decreased light touch R compared to L Special Tests Sciatic Nerve Tension Test Negative Left,Negative Right Unilateral Straight Leg Raise (Lasegue) Negative Left,Negative Right Test Oswestry Index Section 1 Pain Intensity The pain comes and goes and is moderate Section 2 Personal Care (Washing,Dresing) increase the pain and I find it necessary to change my way of doing it Section 3 Lifting lifting heavy weights off the floor, but I can manage if they are Section 4 Walking I have some pain when walking but it does not increase with distance Section 5 Sitting Pain prevents me from sitting for more than one hour Section 6 Standing I have some pain on standing, but it does not increase with time Section 7 Sleeping Because of my pain, my normal night's sleep is less than 6 hours sleep Section 8 Social Life My social life is normal but increases the degree of pain Section 9 Traveling I get some pain when traveling , but none of my usual forms of travel m Section 10 Changing Degreee of Pain My pain is neither getting better or worse Score and Risk Level Oswestry Sc 19 Oswestry Risk Level Moderate Disability Outpatient Therapy Assessment Impairments Problems/Impairmments Palpation Tenderness,Impaired Range of Motion,Impaired Strength,Impaired Walking, Impaired Standing,Impaired Sitting,Impaired Lifting, Impaired Household Care, Impaired Squatting,Impaired Bending,Subjective C/O Pain, Impaired Self Care/Self Management Prognosis Rehab Potential Good Comment Barriers to progress include chronic pain Clinical Impression Consistent with Diagnosis Yes Additional details: no signs/symptoms of thoracic radiculopathy present upon the initial evaluation this date Short Term Goals Number of Weeks 3 Increase Range of Motion Yes: Improve lumbar AROM flex to 70 Increase Strength Yes: Improve hip extension MMT to at least 4-/5 Decrease Subjective C/O Pain Yes: Improve pain at worst to 8/10 to improve overall QOL Improve Self Care/Self Management Yes Patient to be Ind w/ HEP Yes Coffee Sampler Goals Number of Weeks 6 Decreased Palpation Tenderness Yes: 1/4 TTP of thoracolumbar PS and SP Increase Range of Motion Yes: Improve lumbar AROM flex to 75-80 Increase Strength Yes: Improve hip/core MMT to 4 -4+/5 grossly to assist with function Improve Oswestry Score Yes: Improve score to 14 or less to improve overall QOL Decrease Subjective C/O Pain Yes: Improve pain at worst to 6/10 to improve overall QOL Outpatient Therapy Plan of Care Treatment Plan May Include Therapeutic Exercise Including Home Yes Exercise Program Manual Therapy Techniques Yes Neuromuscular Re-education Yes Therapeutic Activities to Return to Yes Previous Functional/Work Level ADL/Self Care Education Yes Mechanical Traction Yes Dry Needling Yes Thermal Modalities Yes Electrical Stimulation Yes Ultrasound/Phonophoresis Yes Iontophoresis Yes Massage Yes Group Therapy for Medicare Yes Eval/Re-Eval Yes Frequency Times per week 2 Duration Number of Weeks 4-6 Addendums This patient is a candidate for social No or vocational rehab? Patient/Guardian verbally acknowledges Yes understanding of treatment program and consents to further treatment? Patient/Guardian verbally acknowledges Yes understanding of diagnosis, prognosis and goals for treatment? Eval Complexity PT Charges 82138 - Low Complexity Shoulder/Elbow Eval Shoulder Objective Measurements Elbow Objective Measurements PHYSICIAN CERTIFICATION: I certify the specified therapy services for Teodora Leonrad are required, authorized, and reviewed every 30 days.
== END 2024-08-24 23:59 | disposition home or self-care (01) ==
LOC: PT 12:47
PROVIDERS: PCP Nurse Practitioner; Visit Provider Nurse Practitioner Family
DX: M54.14 Radiculopathy, thoracic region (principal); M54.6 Pain in thoracic spine
CPT/HCPCS: 97110; 97163

== ENCOUNTER 2024-08-20 14:48 | Outpatient (CLI) | payer MEDICARE, OTHER, SELFPAY ==
--- OUTSIDE RECORDS SUMMARY | 2024-08-20 14:51 | XMS_ITS ---
Laboratory report Created on: July 18, 2024 GENA NYE : 1995 Sex: Female Author Name MICHAEL ARELLANO [employer] Unknown PROBLEMS Problems List Code Description Z00.00 RESULTS Laboratory Orders Date Order Code Test 2024-07-06 [id number] COMP. METABOLIC PANEL (14) 2024-07-06 [id number] CBC, PLATELET, N O DIFFERENTIAL 2024-07-06 [id number] TSH RFX ON ABNOR MAL TO FREE T4 2024-07-06 [id number] LIPID PANEL Laboratory Results Date LOINC Test Value Unit Reference Range Interpre tation 2024-07-06 2345-7 GLUCOSE 69 MG/DL 70-99 L 2024-07-06 3094-0 BUN 14 MG/DL 6-20 2024-07-06 2160-0 CREATININE .77 MG/DL 0.57-1.00 2024-07-06 27625-0 EGFR 106 ML/MIN/1.7 3 >59 2024-07-06 3097-3 BUN/CREATININE RATIO 18 9-23 2024-07-06 2951-2 SODIUM 142 MMOL/L 310-706 1866-03-03 2823-3 POTASSIUM 4.1 MMOL/L 3.5-5.2 2024-07-06 2075-0 CHLORIDE 105 MMOL/L 96-106 2024-07-06 2028-9 CARBON DIOXIDE, TOTAL 26 MMOL/L 20-29 2024-07-06 00325-8 CALCIUM 9.6 MG/DL 8.7-10.2 2024-07-06 2885-2 PROTEIN, TOTAL 7 G/DL 6.0-8.5 2024-07-06 1751-7 ALBUMIN 4 G/DL 4.0-5.0 2024-07-06 84055-3 GLOBULIN, TOTAL 3 G/DL 1.5-4.5 2024-07-06 1975-2 BILIRUBIN, TOTAL .4 MG/DL 0.0-1.2 2024-07-06 6768-6 ALKALINE PHOSPHATASE 125 IU/L 44-121 H 2024-07-06 1920-8 AST (SGOT) 15 IU/L 0-40 2024-07-06 1742-6 ALT (SGPT) 10 IU/L 0-32 2024-07-06 6690-2 WBC 10.1 X10E3/UL 3.4-10.8 2024-07-06 789-8 RBC 4.61 X10E6/UL 3.77-5.28 2024-07-06 718-7 HEMOGLOBIN 13 G/DL 11.1-15.9 2024-07-06 4544-3 HEMATOCRIT 41.4 % 34.0-46.6 2024-07-06 787-2 MCV 90 FL 79-97 2024-07-06 785-6 MCH 28.2 PG 26.6-33.0 2024-07-06 786-4 MCHC 31.4 G/DL 31.5-35.7 L 2024-07-06 788-0 RDW 12.9 % 11.7-15.4 2024-07-06 777-3 PLATELETS 428 X10E3/UL 496-040 5402-03-03 24307-4 TSH 2.03 UIU/ML 0.450-4.500 2024-07-06 2093-3 CHOLESTEROL, TOTAL 166 MG/DL 286-180 3337-03-03 2571-8 TRIGLYCERIDES 129 MG/DL 0-149 2024-07-06 2085-9 HDL CHOLESTEROL 44 MG/DL >39 2024-07-06 28129-5 VLDL CHOLESTEROL ALEJANDRO 23 MG/DL 5-40 2024-07-06 98630-2 LDL CHOL CALC ([facility]) 99 MG/DL 0-99
--- OUTSIDE RECORDS SUMMARY | 2024-08-20 14:51 | XMS_ITS ---
Laboratory report Created on: July 09, 2024 GENA NYE : 1995 Sex: Female Author Name MICHAEL ARELLANO [employer] Unknown PROBLEMS Problems List Code Description Z00.00 RESULTS Laboratory Orders Date Order Code Test 2024-07-06 [id number] COMP. METABOLIC PANEL (14) 2024-07-06 [id number] CBC, PLATELET, N O DIFFERENTIAL 2024-07-06 [id number] TSH RFX ON ABNOR MAL TO FREE T4 2024-07-06 [id number] LIPID PANEL Laboratory Results Date LOINC Test Value Unit Reference Range Interpre tation 2024-07-06 2345-7 GLUCOSE 69 MG/DL 70-99 L 2024-07-06 3094-0 BUN 14 MG/DL 6-20 2024-07-06 2160-0 CREATININE .77 MG/DL 0.57-1.00 2024-07-06 38559-7 EGFR 106 ML/MIN/1.7 3 >59 2024-07-06 3097-3 BUN/CREATININE RATIO 18 9-23 2024-07-06 2951-2 SODIUM 142 MMOL/L 043-826 3303-03-03 2823-3 POTASSIUM 4.1 MMOL/L 3.5-5.2 2024-07-06 2075-0 CHLORIDE 105 MMOL/L 96-106 2024-07-06 2028-9 CARBON DIOXIDE, TOTAL 26 MMOL/L 20-29 2024-07-06 78086-8 CALCIUM 9.6 MG/DL 8.7-10.2 2024-07-06 2885-2 PROTEIN, TOTAL 7 G/DL 6.0-8.5 2024-07-06 1751-7 ALBUMIN 4 G/DL 4.0-5.0 2024-07-06 27192-6 GLOBULIN, TOTAL 3 G/DL 1.5-4.5 2024-07-06 1975-2 [...] % 11.7-15.4 2024-07-06 777-3 PLATELETS 428 X10E3/UL 311-108 1715-03-03 29536-7 TSH 2.03 UIU/ML 0.450-4.500 2024-07-06 2093-3 CHOLESTEROL, TOTAL 166 MG/DL 157-756 5378-03-03 2571-8 TRIGLYCERIDES 129 MG/DL 0-149 2024-07-06 2085-9 HDL CHOLESTEROL 44 MG/DL >39 2024-07-06 22226-9 VLDL CHOLESTEROL ALEJANDRO 23 MG/DL 5-40 2024-07-06 63610-2 LDL CHOL CALC ([facility]) 99 MG/DL 0-99
--- NOTE | 2024-08-20 14:53 | MR_ITS ---
FINAL REPORT CLINICAL HISTORY: patient states she was diagnosed with scoliosis, worsening mid back pain COMPARISON: 09/05/2022 FINDINGS: Multiplanar MR imaging of the thoracic spine was performed without contrast. On the sagittal T2-weighted images, there is mild narrowing of the mid thoracic disc spaces. There is no evidence of fracture. The vertebral alignment is normal. No bony mass is identified. The thoracic spinal cord has an unremarkable appearance without evidence of mass, edema or syrinx. There is no evidence of canal stenosis or cord compression. On the axial images, no focal disc protrusion is identified. There is no evidence of significant canal stenosis. No paraspinous soft tissue abnormality is seen. IMPRESSION: Mild changes of degenerative disc disease, similar to the prior exam. Reviewed, Interpreted and Dictated by Will De Guzman MD Transcribed by Eneida Carballo Authenticated and [facility]
== END 2024-08-20 23:59 | disposition home or self-care (01) ==
LOC: RAD 14:50
PROVIDERS: PCP Nurse Practitioner; Visit Provider Nurse Practitioner Family
DX: M54.14 Radiculopathy, thoracic region (principal); M54.50 Low back pain, unspecified
CPT/HCPCS: 72146

== ENCOUNTER 2024-08-25 09:29 | Outpatient (POV) | payer MEDICARE, OTHER, SELFPAY ==
--- NOTE | 2024-08-25 09:53 | EXP.PAIN.SOA ---
[facility] Disclaimer: The information contained in this section may have been updated after the patient was seen, as this information can be updated by other users. Medical History (Updated 08/25/24 @ 09:56 by Areli Leonard APRN) Low back pain Bilateral sacroiliitis Bilateral hip pain ADHD Degenerative disc disease, lumbar Sleep apnea Anxiety Depression Menorrhagia Thrombocytosis Microcytic anemia Surgical History History of partial hysterectomy Hx of bilateral salpingectomy History of laparoscopic cholecystectomy History of appendectomy Family History Other Anemia Cancer Diabetes FHx: mental illness Hyperlipidemia Hypertension Stroke Social History Smoking Status: Never smoker alcohol intake: never substance use type: denies use current occupational status: other Travel in the last 8 weeks: None household members: family housing: house PM Subjective & Objective Subjective Subjective:: Patient is a pleasant 28-year-old female who presents today for insurance denial as well as MRI follow-up of her thoracic spine. Today she rates her pain a 6 out of 10. Patient denies any new falls or injuries. Patient does state that she is still having the same pain that we discussed at her last visit. Patient states that the pain is there at her mid back and does radiate down. She states occasionally it will radiate to her left side but it is not always constant. Patient does state however the constant pain she feels is where her legs are constantly feeling like a pins and needle sensation. Patient states the pain radiates down her low back to the lateral side of her upper thighs and down to the front of her lower legs. Patient does state the pain does interfere with her ability perform activities of daily living such as cooking and cleaning. Patient is interested in any options we may be able to provide. Her Luis Alberto has been reviewed and is appropriate. Review of Systems: General: No recent weight changes, no fever, no sleep disturbances Respiratory: No cough, no shortness of air, no recurring pulmonary infections Cardiovascular/peripheral vascular: No chest pain, no palpitations, no edema, no shortness of breath Gastrointestinal: No new onset incontinence, normal bowel movements reported Genitourinary: No new onset incontinence Musculoskeletal: Mid back pain, low back pain, leg pain, bilateral feet numbness tingling Psychiatric: [Normal mood/affect] Neurological: [Denies weakness in extremities], [denies balance issues] Pain at rest (0-10 scale): 6 Objective Objective:: Physical Exam: General: Alert and oriented x3, no acute distress, pleasant and cooperative Lungs: Respirations even and unlabored, symmetrical chest expansion Eyes: PERRL Musculoskeletal: Flexion and extension of lumbar [spine] somewhat guarded secondary to pain, positive leg raise Neurological: Speech clear, no gross sensory deficit Has patient had previous pain injection?: No Conservative treatment options previously tried: Home exercise plan Length of treatment: Longer than 12 weeks Meds Home Medications and Allergies Home Medications ?Medication ?Instructions ?Recorded ?Confirmed ?Type dicyclomine 10 mg capsule 10 mg PO TID PRN abdominal pain 03/24/24 07/30/24 Rx #90 caps buspirone 15 mg tablet 15 mg PO DAILY 06/02/24 07/30/24 History guanfacine 2 mg tablet,extended 2 mg PO DAILY 06/02/24 07/30/24 History release 24 hr sertraline 100 mg tablet 100 mg PO DAILY 06/02/24 07/30/24 History New Prescriptions to Start Prescriptions: Allergies Allergy/AdvReac Type Severity Reaction Status Date / Time No Known Allergies Allergy Verified 06/09/24 13:48 Assessment and Plan *Assessment and plan (1) Low back pain: Status: Acute Qualifiers: Chronicity: chronic Back pain laterality: bilateral Sciatica presence: with sciatica Sciatica laterality: bilateral sciatica Qualified Code(s): M54.42 - Lumbago with sciatica, left side; M54.41 - Lumbago with sciatica, right side; G89.29 - Other chronic pain Category: Medical Code(s): M54.50 - Low back pain, unspecified (2) Lumbar radiculopathy: Status: Acute Category: Medical Code(s): M54.16 - Radiculopathy, lumbar region (3) Mid back pain: Status: Acute Category: Medical Code(s): M54.9 - Dorsalgia, unspecified Plan I did discuss with the patient due to the fact that she is not having continuous pain that radiates out towards her ribs from the mid back pain that her symptoms do sound more consistent with a lumbar epidural. Patient was counseled that the sensation she feels in where she feels them going down into her legs is more appropriate for a L4-L5 epidural. Risk and benefits were discussed with the patient and she would like to proceed forward with this plan of care. We did review over her thoracic MRI. Patient did have extreme point tenderness still around the T12 vertebra at the last rib and again down in the lower lumbar spine. Patient has tried and failed conservative therapy including oral medication, heat and ice, topicals, physical therapy, at home stretching exercise for longer than 12 weeks. I did primary substance abuse counselor the patient that I will send in some lidocaine patches and ibuprofen 600 mg twice daily as needed. Patient will be scheduled for an LESI L4-L5 under fluoroscopy. We did also discuss due to a new complaint of leg cramps during today's visit. She has had a recent follow-up with her primary care here in just the last couple of months and did have updated labs that were all within range. Patient also states that they were checking to verify if diabetes was present and everything was in good standing when she went to that visit regarding this. Patient has been instructed to contact the clinic with any concerns before the next appointment. Dr. Jain has reviewed this note and agrees with this plan of care. This note was dictated using voice recognition software and make contain errors or omissions. All injections are used with Lidocaine, Bupivacaine and Depo Medrol. Occasionally urine drug screen is needed to verify patient's compliance with our office pain contract. This is ordered based off specific treatments related to chronic pain with the potential to abuse certain medications.
[2024-08-25 09:56] VITALS: BP 112/75; PULSE 67; RESP 14; O2SAT 100; BMI 42.0
== END 2024-08-25 23:59 | disposition home or self-care (01) ==
PROVIDERS: PCP Nurse Practitioner; Visit Provider Nurse Practitioner Family
DX: M54.42 Lumbago with sciatica, left side (principal); M54.41 Lumbago with sciatica, right side; G89.29 Other chronic pain; M54.16 Radiculopathy, lumbar region; M54.9 Dorsalgia, unspecified; Z73.89 Other problems related to life management difficulty
CPT/HCPCS: 99212; G0463

== ENCOUNTER 2024-09-22 09:37 | Outpatient (CLI) | payer MEDICARE, OTHER, SELFPAY | END 2024-09-22 23:59 | disposition home or self-care (01) | LOC: LAB.DROPOF 09-25 09:38 | PROVIDERS: PCP Nurse Practitioner; Visit Provider Internal Medicine Medical Oncology | DX: M51.16 Intervertebral disc disorders with radiculopathy, lumbar region (principal) | CPT/HCPCS: 62323 ==

== ENCOUNTER 2024-09-22 11:31 | Day surgery (SDC) | payer MEDICARE, OTHER, SELFPAY ==
[2024-09-22 12:15] LABS: Basophils # 0.1 K/mm3 (0-0.2); Basophils % 0.5 % (0.1-2.0); Eosinophils # 0.2 Kmm3 (0.0-0.4); Hematocrit 40.8 % (37.0-47.0); Hemoglobin 13.6 g/dL (12.2-16.2); Immature Granulocytes # 0.03 10^3uL; Immature Granulocytes % 0.3 %; Lymphocytes # 2.7 K/mm3 (0.7-4.5); Lymphocytes % 26.4 % (10-50); Mean Corpuscular HGB Conc 33.3 g/dL (31.8-35.4); Mean Corpuscular Hemoglobin 29.2 pg (27.0-31.2); Mean Corpuscular Volume 87.6 fl (81-99); Mean Platelet Volume 9.4 fl (7.4-10.4); Monocytes # 0.4 K/mm3 (0.1-1.0); Monocytes % 4.3 % (1.7-9.3); Neutrophils # 6.8 K/mm3 (1.8-7.8); Neutrophils % 66.5 % (37.0-80.0); Nucleated Red Blood Cells # 0 10^3/uL; Nucleated Red Blood Cells % 0 %; Platelet Count 411 K/mm3 (142-424); Red Blood Count 4.66 M/mm3 (4.20-5.40); Red Cell Distribution Width 11.9 % (11.5-17.5); Red Cell Distribution Width-SD 38.6 fL; White Blood Count 10.2 K/mm3 (4.8-10.8)
[2024-09-22 13:27] VITALS: BP 159/82; PULSE 84; RESP 16; TEMP 37.1; O2SAT 100; BMI 42.7
[2024-09-22 13:35] VITALS: BP 155/92; PULSE 101; RESP 18; O2SAT 99
[2024-09-22] MEDS: DEXAMETHASONE 10MG/ML 1ML VIAL 10 MG (13:35)
[2024-09-22 13:37] VITALS: BP 155/92; PULSE 101; RESP 18; O2SAT 99
--- NOTE | 2024-09-22 13:42 | EXP.PAIN.PRO ---
Procedure Date: 09/22/24 Time: 13:30 Anesthesiologist:: Bandar Eisenberg CRNA Complications:: None Pre-procedure Diagnosis:: Degenerative disc lumbar spine multilevels. Lumbar radiculopathy Post-procedure Diagnosis:: Same. Indications for Procedure:: Patient is a pleasant 29-year-old female who comes our clinic today for L4-5 lumbar epidural steroid injection. Patient describes low lumbar back pain is constant, dull, aching. She also reports bilateral hip radicular symptoms at times. She rates her pain 7/10. Procedure Details:: Procedure: Lumbar epidural steroid injection under fluoroscopy Informed consent was obtained and the risks and benefits of the procedure were explained to the patient. The patient was taken to the procedure room and noninvasive monitors placed, including noninvasive blood pressure cuff and pulse oximeter. The back was viewed using C-arm Fluoroscopy and prepped using Chloraprep as a cleansing solution and the L4-L5 interspace was palpated. Skin and subcutaneous tissues were anesthetized using lidocaine 1.5% and a 25-gauge needle. After this, an 18-gauge Touhy epidural needle was placed into the L4-L5 interspace and advanced using fluoroscopic guidance and loss of resistance to air until the epidural space was encountered. After confirmation of needle placement in the epidural space, with dye, a solution containing normal saline, 3 mL and Depo-Medrol 80 mg were incrementally injected into the lumbar epidural space. The patient tolerated the procedure well with no complications. The patient was observed in the Pain Clinic and then discharged home neurologically intact. Plan and Disposition:: Patient was discharged without incident.
[2024-09-22 13:50] VITALS: BP 121/71; PULSE 79; RESP 16; O2SAT 100
[2024-09-22 13:59] LABS: Iron 89 ug/dL (37-170)
[2024-09-22 14:09] LABS: Total Iron Binding Capacity 305 ug/dL (265-497)
[2024-09-22 14:36] LABS: Ferritin 62.7 ng/ml (6.24-137)
== END 2024-09-22 13:50 | disposition home or self-care (01) ==
PROVIDERS: Internal Medicine Medical Oncology; PCP Nurse Practitioner; Visit Provider Nurse Anesthetist, Certified Registered
DX: D64.9 Anemia, unspecified (principal); M51.16 Intervertebral disc disorders with radiculopathy, lumbar region
CPT/HCPCS: 36415; 62323; 82728; 83540; 83550; 85025; J1100

== ENCOUNTER 2024-09-27 19:07 | Emergency (ER) | payer MEDICARE, OTHER, SELFPAY ==
[2024-09-27 19:15] VITALS: BP 146/96; PULSE 109; RESP 22; TEMP 36.8; O2SAT 100; BMI 42.7
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
--- NOTE | 2024-09-27 21:01 | XR_ITS ---
PROCEDURE INFORMATION: Exam: XR Right Wrist Exam date and time: 09/27/2024 9:06 PM Age: 29 years old Clinical indication: Pain; Wrist; Bilateral; Additional info: Foosh, diffuse pain TECHNIQUE: Imaging protocol: Radiologic exam of the right wrist. Views: 1 or 2 views. COMPARISON: CR XR WRIST RT 2V 09/27/2024 9:06 PM FINDINGS: Bones/joints: No acute fracture or malalignment. Soft tissues: Unremarkable. IMPRESSION: No acute osseous findings.
--- NOTE | 2024-09-27 21:01 | XR_ITS ---
PROCEDURE INFORMATION: Exam: XR Left Wrist Exam date and time: 09/27/2024 9:06 PM Age: 29 years old Clinical indication: Pain; Wrist; Bilateral; Additional info: Foosh, diffuse pain TECHNIQUE: Imaging protocol: Radiologic exam of the left wrist. Views: 1 or 2 views. COMPARISON: CR XR HAND LT 2V 09/27/2024 9:06 PM FINDINGS: Bones/joints: No acute fracture or malalignment. Soft tissues: Dorsal distal forearm soft tissue swelling. IMPRESSION: No acute osseous findings.
--- NOTE | 2024-09-27 21:01 | XR_ITS ---
PROCEDURE INFORMATION: Exam: XR Left Hand Exam date and time: 09/27/2024 9:06 PM Age: 29 years old Clinical indication: Pain; Hand; left; Additional info: Foosh, diffuse pain TECHNIQUE: Imaging protocol: Radiologic exam of the left hand. Views: 1 or 2 views. COMPARISON: CR XR WRIST LT 2V 09/27/2024 9:06 PM FINDINGS: Bones/joints: No acute fracture or malalignment. Soft tissues: Unremarkable. IMPRESSION: No acute osseous findings.
--- NOTE | 2024-09-27 21:01 | XR_ITS ---
PROCEDURE INFORMATION: Exam: XR Right Knee Exam date and time: 09/27/2024 9:06 PM Age: 29 years old Clinical indication: Pain; Knee; Right; Additional info: Mcfp, abrasions, diffuse pain TECHNIQUE: Imaging protocol: Radiologic exam of the right knee. Views: 3 views. COMPARISON: No relevant prior studies available. FINDINGS: Bones/joints: No acute fracture or malalignment. No joint effusion. Soft tissues: Unremarkable. IMPRESSION: No acute osseous findings.
--- NOTE | 2024-09-27 21:01 | XR_ITS ---
PROCEDURE INFORMATION: Exam: XR Right Forearm Exam date and time: 09/27/2024 9:06 PM Age: 29 years old Clinical indication: Pain; Elbow and wrist; Right; Additional info: Residential, abrasions, diffuse pain TECHNIQUE: Imaging protocol: Radiologic exam of the right forearm. Views: 2 views. COMPARISON: CR XR FOREARM RT 2V 09/27/2024 9:06 PM FINDINGS: Bones/joints: No acute fracture or malalignment. Soft tissues: Unremarkable. IMPRESSION: No acute osseous findings.
--- NOTE | 2024-09-27 21:01 | XR_ITS ---
PROCEDURE INFORMATION: Exam: XR Right Elbow Exam date and time: 09/27/2024 9:06 PM Age: 29 years old Clinical indication: Injury or trauma; Fall; Blunt trauma (contusions or hematomas); Arm, upper and wrist and hand; Bilateral; Right; Additional info: Usp, abrasions, diffuse pain TECHNIQUE: Imaging protocol: Radiologic exam of the right elbow. Views: 1 or 2 views. COMPARISON: DX [id number] XR hand RT min 3V 04/23/2018 2:48 PM FINDINGS: Bones/joints: No acute fracture or malalignment. No joint effusion. Soft tissues: Unremarkable. IMPRESSION: No acute osseous findings.
[2024-09-27] MEDS: HYDROCODONE 10MG/APAP 325MG TAB 1 TAB PO ×2 (21:18→22:48)
[2024-09-27] MEDS: TET/DIPHTH/PERT-ADULT 0.5ML SYRINGE 0.5 ML IM (21:18)
[2024-09-27] MEDS: METHOCARBAMOL 500MG TABLET 500 MG PO (22:47)
[2024-09-27 22:49] VITALS: BP 127/78; PULSE 89; RESP 18; TEMP 36.5; O2SAT 100
== END 2024-09-27 22:51 | disposition home or self-care (01) ==
PROVIDERS: Emergency Provider Emergency Medicine; PCP Nurse Practitioner
DX: M25.561 Pain in right knee (principal); M25.521 Pain in right elbow; M25.532 Pain in left wrist; M79.641 Pain in right hand; V29.39XA Other motorcycle (driver) (passenger) injured in unspecified nontraffic accident, initial encounter
CPT/HCPCS: 73070; 73090; 73100; 73120; 73562; 90471; 90715; 99284

== ENCOUNTER 2024-10-07 10:56 | Outpatient (POV) | payer MEDICARE, OTHER, SELFPAY ==
[2024-10-07 11:17] VITALS: BP 116/71; PULSE 87; RESP 18; O2SAT 98; BMI 42.0
--- NOTE | 2024-10-07 11:45 | A.OFFVIS_ITS ---
[facility] Disclaimer: The information contained in this section may have been updated after the patient was seen, as this information can be updated by other users. Medical History Low back pain Bilateral sacroiliitis Bilateral hip pain ADHD Degenerative disc disease, lumbar Sleep apnea Anxiety Depression Menorrhagia Thrombocytosis Microcytic anemia Surgical History History of partial hysterectomy Hx of bilateral salpingectomy History of laparoscopic cholecystectomy History of appendectomy Family History Other Anemia Cancer Diabetes FHx: mental illness Hyperlipidemia Hypertension Stroke Social History Smoking Status: Never smoker alcohol intake: never substance use type: denies use current occupational status: other Travel in the last 8 weeks?: None household members: family housing: house Have you lived/traveled outside [place] in past 30 days?: No Contact w/someone who lives/traveled outside [place] past 30 days?: No Exposure to someone with infectious disease in past 14 days?: No Do you have a fever (greater than 100.4 F or 38 C)?: No Have you tested positive for COVID-19?: No Exposed to someone with COVID-19 in past 14 days?: No Do you have a sore throat?: No Do you have a cough?: No Do you have any weakness?: No Do you have any diarrhea?: No Are you experiencing any unusual bleeding?: No Do you have any muscle aches/pain?: No Do you have any abdominal pain?: No Are you experiencing loss of taste or smell?: No PM Subjective & Objective Subjective Subjective:: Patient is a pleasant 29-year-old female who presents for follow-up of her lumbar epidural steroid injection L4-L5 on 09/22/2024. Today she rates her pain an 8 out of 10. She denies any new injuries. She states she is still having the same pain if not worse and describes it as a throbbing sensation and does still state it goes down into her legs. Patient states she really did not notice any improvement with this injection. Patient has continued conservative treatment including physical therapy with no additional changes. Patient has been tried on multiple medications including diclofenac meloxicam and Celebrex as well as muscle relaxers such as baclofen, methocarbamol and duloxetine, lidocaine patches with no changes. Her Luis Alberto has been reviewed and is appropriate. Review of Systems: General: No recent weight changes, no fever, no sleep disturbances Respiratory: No cough, no shortness of air, no recurring pulmonary infections Cardiovascular/peripheral vascular: No chest pain, no palpitations, no edema, no shortness of breath Gastrointestinal: No new onset incontinence, normal bowel movements reported Genitourinary: No new onset incontinence Musculoskeletal: Low back pain Psychiatric: [Normal mood/affect] Neurological: [Denies weakness in extremities], [denies balance issues] Pain at rest (0-10 scale): 8 Objective Objective:: Physical Exam: General: Alert and oriented x3, no acute distress, pleasant and cooperative Lungs: Respirations even and unlabored, symmetrical chest expansion Eyes: PERRL Musculoskeletal: Flexion and extension of lumbar [spine] somewhat guarded secondary to pain Neurological: Speech clear, no gross sensory deficit Has patient had previous pain injection?: Yes Percent improvement in pain since last injection: Minimal Conservative treatment options previously tried: Home exercise plan Length of treatment: Longer than 12 weeks and Physical Therapy Length of treatment: Longer than 6 with Meds Home Medications and Allergies Home Medications ?Medication ?Instructions ?Recorded ?Confirmed ?Type dicyclomine 10 mg capsule 10 mg PO TID PRN abdominal p ain 03/24/24 10/07/24 Rx #90 caps buspirone 15 mg tablet 15 mg PO DAILY 06/02/2408/28 History guanfacine 2 mg tablet,extended 2 mg PO DAILY 06/02/24 10/07/24 History release 24 hr sertraline 100 mg tablet 100 mg PO DAILY 06/02/2408/28 History lidocaine 5 % topical patch 1 patch topical DAILY #30 ea 08/25/24 10/07/24 Rx lidocaine 4 % topical patch 1 patch topical DAILY PRN pain #30 08/26/24 10/07/24 Rx (Blue-Emu Lidocaine Patch) ea ketorolac 10 mg tablet 10 mg PO Q8H PRN pain 5 days #20 09/27/24 10/07/24 Rx tabs methocarbamol 500 mg tablet 500 mg PO Q8H 30 days #90 tabs 09/27/24 10/07/24 Rx New Prescriptions to Start Prescriptions: Allergies Allergy/AdvReac Type Severity Reaction Status Date / Time No Known Allergies Allergy Verified 09/22/24 10:57 Assessment and Plan *Assessment and plan (1) Lumbar radiculopathy: Status: Acute Category: Medical Code(s): M54.16 - Radiculopathy, lumbar region (2) Low back pain: Status: Acute Qualifiers: Chronicity: chronic Back pain laterality: bilateral Sciatica presence: with sciatica Sciatica laterality: bilateral sciatica Qualified Code(s): M54.42 - Lumbago with sciatica, left side; M54.41 - Lumbago with sciatica, right side; G89.29 - Other chronic pain Category: Medical Code(s): M54.50 - Low back pain, unspecified Plan I did discuss with the patient that we have tried multiple injections along with multiple medications with no additional improvement. Patient was also submitted for a couple of different medications that her insurance denied. I did skilled nursing facility counselor her unfortunately her low back imaging had very minimal findings and that she is not a candidate for surgical intervention. I did recommend that she look into possible chiropractor therapy. Patient was counseled to get a copy of her imaging from radiology to make sure to bring with her. She was recommended to call our office for her next appointment as I know we are very limited what we can offer due to the interventions we have already tried. Patient acknowledges understanding and agrees with this plan of care. Patient has been instructed to contact the clinic with any concerns before the next appointment. Dr. Jain has reviewed this note and agrees with this plan of care. This note was dictated using voice recognition software and make contain errors or omissions. All injections are used with Lidocaine, Bupivacaine and dexamethasone. Occasionally urine drug screen is needed to verify patient's compliance with our office pain contract. This is ordered based off specific treatments related to chronic pain with the potential to abuse certain medications.
== END 2024-10-07 23:59 | disposition home or self-care (01) ==
LOC: SC.PAIN 10:58
PROVIDERS: PCP Nurse Practitioner; Visit Provider Nurse Practitioner Family
DX: M54.41 Lumbago with sciatica, right side (principal); M54.42 Lumbago with sciatica, left side; G89.29 Other chronic pain; Z79.899 Other long term (current) drug therapy
CPT/HCPCS: 99212; G0463

== ENCOUNTER 2024-12-09 13:35 | Outpatient (CLI) | payer MEDICARE, OTHER, SELFPAY ==
--- OUTSIDE RECORDS SUMMARY | 2024-12-09 13:40 | XMS_ITS | Clinical Summary ---
Author Organization [facility] Address [address] [place] [address] Care Team Providers Care Tipple Supervisor Name Role Phone Jasmin Naik APRN Primary Care Provider Allergies No known active allergies Medications busPIRone (BUSPAR) 15 MG tablet 3 Active sertraline (ZOLOFT) 100 MG tablet 3 Active QUEtiapine (SEROquel) 25 MG tablet Take 1 tablet by mouth Every Night. 4 Active cetirizine (zyrTEC) 10 MG tabletIndication s:Non-seasonal allergic rhinitis, unspecified trigger Take 1 tablet by mouth Daily. 30 tablet 4 Active guanFACINE HCl ER 3 MG tablet sustained-releas e 24 hour Take 3 mg by mouth every night at bedtime. 5 Active nystatin (MYCOSTATIN) 857830 UNIT/GM powder Apply topically to the appropriate area as directed 3 (Three) Times a Day. 30 g 5 Active Vitamin D, Cholecalciferol, 25 MCG (1000 UT) capsule Take 1 capsule by mouth Daily. 90 capsule 1 5 Active Active Problems Problem Noted Date Diagnosed Date Vitamin D deficiency 09/03/2024 Yeast dermatitis 09/03/2024 Assessment & Plan (09/03/2024 12:58 PM EDT): Patient physical exam findings consistent with that of a yeast dermatitis of the umbilicus. Patient advised to keep region dry and clean, utilizing warm water and antibacterial soap, encourage thorough drying after bathing. Prescribed nystatin powder for further treatment Initial Medicare annual wellness visit Chronic constipation 07/06/2024 Assessment & Plan (07/09/2024 4:41 PM EST): Patient currently being followed by GI, Dr. Humberto Hernandez at [facility]. Patient is currently utilizing MiraLAX as well as Ex-Lax intermittently, if she has no relief in the near future patient states that they have discussed pursuing colonoscopy which she would like to avoid. Attention deficit hyperactiv ity disorder (ADHD), predominantly inattentive type 04/12/2024 Assessment & Plan (07/09/2024 4:41 PM EST): Patient endorses that she has been diagnosed with ADHD by her behavioral health divider, recently starting guanfacine. Assessment & Plan (04/12/2024 12:39 PM EST): Patient's other concern today is that of treatment for ADHD. Patient is followed regularly by therapist, Larissa Kilpatrick. Patient states that sometime last year she was referred to a provider named Daljit within that practice who screened her for autism and ADHD. We did not receive any of these results, however patient reports she was told she was suffering from mild autism but her bigger issue seems to be that of ADHD. At that time they reportedly suggested treatment but until recently patient has been able to manage on her own. She states now she is unable to focused on any particular task and feels as though her mind is constantly racing. She feels at this time she would benefit from initiation for her ADHD. Will obtain notes from this screening and proceed as indicated Elevated BP without diagnosis of hypertension Assessment & Plan (09/20/2023 12:32 PM EDT): Patient had not previously been diagnosed with hypertension, however due to her obesity she is certainly at high risk, her mother and father both also suffer from familial hypertension. Patient has been experiencing chronic headache for the last couple of days with coinciding elevated blood pressures. No concerning physical exam findings in regard to neurologic symptoms. Will initiate patient on lisinopril 10 mg daily. Patient advised to monitor blood pressure several days weekly, if blood pressure staying lower than 110/70 she is to discontinue the medication and call my office for further direction. Will follow-up in 4 weeks Elevated fasting glucose 09/10/2023 Assessment & Plan (09/10/2023 9:45 AM EDT): A1c in office today is normal, 5.5% Lower extremity numbness 09/10/2023 Assessment & Plan (09/10/2023 9:46 AM EDT): Patient with lower extremity numbness and tingling bilaterally due to nerve compression in the lumbar spine. Currently being followed and treated by pain management, Dr. Munguia who would like to pursue cornelo me. Patient currently finding benefits with warm baths when her legs are particularly uncomfortable. Denies any change in bowel or bladder. Menorrhagia with regular cycle 09/10/2023 Assessment & Plan (09/20/2023 12:32 PM EDT): Patient continues to have complaints of heavy bleeding after undergoing bilateral oophorectomy and D&C with her TANK WAGON OPERATOR a couple of weeks ago. She states she is heavily bled for 12 days straight. He has appointment to follow-up with Dr. Sellers, address this matter in a couple of days. Assessment & Plan (09/10/2023 9:48 AM EDT): Followed by TANK WAGON OPERATOR, Dr. Sellers. Recent oophorectomy and D&C due to multiple ovarian cyst and uterine fibroids. Sore throat (viral) 05/30/2023 Assessment & Plan (05/30/2023 3:36 PM EST): Strep screen negative, consistent with another viral illness with modest symptoms. Common community. With notable soreness in throat, initiate prednisone 10 mg tablet 2 tablets daily x 3 days for symptom benefit. Tylenol/Advil, lozenges, gargling. Expected course of another day or 2 of similar symptoms and improvement. Advised if not improving. Chronic rhinitis 05/13/2023 Assessment & Plan (04/12/2024 12:37 PM EST): . Patient states she is also been having some recent issues with nasal congestion, not currently utilizing her daily antihistamine or Flonase. No fever, cough, shortness of breath. Restart zyrtec and flonase Assessment & Plan (07/05/2023 4:09 PM EST): Patient testing negative for flu and COVID in office today. Appears to be other viral syndrome that is prominent in the community. Discussed symptom management with saline nasal spray and cool-mist humidifier. Will also give prescription for fluticasone to help with nasal congestion. Patient also receiving prescription for Bromfed to help with cough and congestion. May utilize ibuprofen or Tylenol for headache. Advised if no improvement Assessment & Plan (05/13/2023 10:41 AM EST): presents today for complaints of nasal congestion, sore throat, cough and headache. Symptom onset four days ago. She has utilized cough drop and nyquil which does provide some benefit. She denies any fever, nausea, vomiting or diarrhea. No ear pain. She does note some lightheadedness and generalized fatigue. Patient testing negative for COVID, flu and strep in office today. Advised ongoing symptom management. Will prescribe Bromfed for cough and congestion as well as Flonase nasal spray for sinus congestion. Patient advised on plenty of rest and fluids. Also educated on [id number] throat analgesics in the form of lozenges or sprays. Also use ibuprofen or Tylenol for myalgias. Urinary frequency 04/15/2023 Other microscopic hematuria 04/15/2023 Calculus of gallbladder with biliary obstruction but without cholecystitis 02/11/2023 Assessment & Plan (02/11/2023 5:26 PM EDT): Patient presented approximately 4 weeks ago with complaints of right upper quadrant and epigastric tenderness. Gallbladder ultrasound showing cholelithiasis requiring subsequent HIDA scan. HIDA scan showing gallbladder EF of 20%. Patient being referred to Dr. Palmer for consultation in regards to cholecystectomy. Iron deficiency anemia 01/30/2023 Assessment & Plan (02/11/2023 5:25 PM EDT): Patient presented to my office 1 week ago with complaints of extreme fatigue and weakness. Patient was found to have significant anemia with hemoglobin of 7.3. She was immediately sent to [facility] emergency department for blood transfusion due to symptomatic anemia. Patient had experienced significant vaginal bleeding after placement of IUD x4 weeks. She also has longstanding history of iron deficiency anemia, followed by Dr. Ashton, hematology. Patient received iron infusion as well as 1 unit PRBC in the emergency department without incident. She has since followed up with PROCESS PLANT OPERATOR with complete resolution of vaginal bleeding. She has appointment with Dr. Ashton for follow-up in the next few weeks Other specified anemias 01/30/2023 Assessment & Plan (01/30/2023 11:38 AM EDT): resents today for complaints of headache, fatigue, chills and weakness. Patient reports these symptoms have been progressively worsening over the last 3 to 4 days. He was last evaluated by me 5 days ago while presenting for her annual physical exam. During that visit she did not have complaints of fatigue, chills, weakness or headache however when labs obtained that day were reviewed she was noted to have a hemoglobin of 7.6. She was directed to her superintendent refuse disposal, Dr. Ashton with history of iron deficiency anemia, to pursue transfusion. Patient reports today they were unable to get her in for transfusion until February 14. The patient was prompted to present here for further evaluation upon development of the after mentioned symptoms. She denies any loss of consciousness, chest pain, shortness of breath. Her biggest complaint is chills and fatigue at the current time. As mentioned above she has history of iron deficiency anemia, treated by hematology in the past. Over the last 4 weeks she is also experienced significant vaginal bleeding after placement of an IUD with her PROCESS PLANT OPERATOR. Patient notes saturating 1 pad every few hours for 4 weeks. Her vaginal bleeding has now subsided. She denies any vaginal pain, discomfort, abdominal bloating or nausea. On physical exam patient's vital signs are stable, she is noted to have pale mucous membranes and skin. My nurse has discussed setting up infusion with [facility], talking both to emergency room staff and clinical assistant housekeeping manager. Patient is being directed to report to emergency department from here for transfusion of 2 units PRBC. Annual physical exam 01/24/2023 Epigastric pain 01/24/2023 Assessment & Plan (01/24/2023 12:54 PM EDT): Patient reported epigastric discomfort, particularly after eating during our visit four weeks ago. She reports feelings of pressure in the epigastric area, notes worse with greasy or fatty foods. Denies any feelings of heartburn per se. Denies any chest pain, shortness of breath or lower extremity edema. No constipation, diarrhea or nausea. She was started on omeprazole without any resolution. -Advised avoidance of fatty, greasy foods -Advised staying upright for at least 1 hour after eating -Continue omeprazole -Send for gallbladder US Folliculitis 01/24/2023 Assessment & Plan (01/24/2023 12:58 PM EDT): Patient with small pustule type rash located on bilateral axilla, bilateral breast folds and bilateral groin folds. We will treat folliculitis with 3 times daily mupirocin cream. She is also instructed to clean areas with antibacterial soap. Discussed need for thorough drying after bathing. Encounter to establish care 12/21/2022 Otalgia of both ears 12/18/2022 Assessment & Plan (07/13/2023 3:00 PM EST): resents today for complaints of ear pain. Patient states mild ache bilaterally, but right more than left. She did have a mild viral syndrome last week with significant sinus congestion. She denies any fever and feels she is over her congestion, no cough or fever. No ear discharge. No decrease in hearing or muffled hearing. On physical exam bilateral serous effusions noted. No signs of infection. Advised daily use of Zyrtec and Flonase for the next several weeks Assessment & Plan (12/21/2022 8:26 AM EDT): Started about a week ago. History of chronic otitis. Frequent swimmer's ear. On physical exam bilateral serous effusions noted, no erythema or bulging. Advised daily use of Zyrtec and Flonase for the next several weeks Gastroesophageal reflux disease without esophagi tis 12/18/2022 Assessment & Plan (07/09/2024 4:42 PM EST): Patient has received excellent benefit since undergoing cholecystectomy. Assessment & Plan (09/10/2023 9:46 AM EDT): Patient has received excellent benefit since undergoing cholecystectomy. She continues omeprazole 40 mg daily with good benefit. Assessment & Plan (12/21/2022 8:26 AM EDT): atient reports new onset epigastric discomfort, particularly after eating. She reports feelings of pressure in the epigastric area, notes worse with greasy or fatty foods. Denies any feelings of heartburn per se. Denies any chest pain, shortness of breath or lower extremity edema. No constipation, diarrhea or nausea. Has not utilize any medications for her symptoms. -Advised avoidance of fatty, greasy foods -Advised staying upright for at least 1 hour after eating -We will initiate omeprazole 40 mg once daily Anxiety and depression 12/18/2022 Assessment & Plan (09/03/2024 12:58 PM EDT): Patient continues to be followed by Jasmin Song APRN for both anxiety and depression. Patient had been utilizing regimen of Seroquel 25 mg nightly as well as Zoloft 100 mg daily. Patient tells me that she is discontinued those medications without any feelings of anxiety, sadness, anhedonia or sleep disturbance. Patient tells me that her behavioral health provider is requesting some lab work such as vitamin D, B12 and folate for further evaluation to mood stability. Assessment & Plan (07/09/2024 4:40 PM EST): Patient with longstanding history of anxiety and depression. Currently followed by mental health provider, Jasmin Song APRN. She reports well-controlled mood stability on daily buspirone and Zoloft. No current feelings of anxiety, sadness, anhedonia or sleep disturbance. Patient is also utilizing 25 mg of Seroquel nightly. Patient reports that there has been some discussion that patient falls into an autism category. No SI or HI. Assessment & Plan (09/10/2023 9:45 AM EDT): Patient with longstanding history of anxiety and depression. Currently followed by mental health provider, Jasmin Song APRN. She reports well-controlled mood stability on daily buspirone and Zoloft. No current feelings of anxiety, sadness, anhedonia or sleep disturbance. No SI or HI Assessment & Plan (01/24/2023 12:56 PM EDT): Patient with longstanding history of anxiety and depression. Currently followed by mental health provider, Jasmin Song APRN. She reports well-controlled mood stability on daily buspirone and Zoloft. No current feelings of anxiety, sadness, anhedonia or sleep disturbance. No SI or HI Assessment & Plan (12/21/2022 8:27 AM EDT): Patient reports issues with anxiety and depression. Currently followed by mental health provider, Jasmin Song APRN. She reports well-controlled mood stability on daily buspirone and Zoloft. Has any current feelings of anxiety, sadness, anhedonia or sleep disturbance. No SI or HI. Lumbar herniated disc 12/18/2022 Assessment & Plan (09/03/2024 12:57 PM EDT): Patient has been treated for lumbar back issue since 2013, initially by Dr. Miller. She is noted to have disc herniation and L5-S1. She has participated in physical therapy in the past which she states only exacerbated her pain. She is now under the care of pain management, Dr. Munguia in [place]. She did not receive any cortisone injections that provided any benefit. She in the past has stated they discussed rhizotomy but has not actually carried through with the procedure. Patient is here today stating she is having a exacerbation in these issues that has failed to respond to any conservative measures including ibuprofen and Tylenol. Patient states in the past she has been able to take a warm bath and find benefit but even that is not working at this time. Assessment & Plan (07/09/2024 4:45 PM EST): Patient has been treated for lumbar back issue since 2013, initially by Dr. Miller. She is noted to have disc herniation and L5-S1. She has participated in physical therapy in the past which she states only exacerbated her pain. She is now under the care of pain management, Dr. Munguia in [place]. She did not receive any cortisone injections that provided any benefit. She in the past has stated they discussed rhizotomy but has not actually carried through with the procedure. Patient is here today stating she is having a exacerbation in these issues that has failed to respond to any conservative measures including ibuprofen and Tylenol. Patient states in the past she has been able to take a warm bath and find benefit but even that is not working at this time. She is interested in pursuing home tens unit Assessment & Plan (04/12/2024 12:36 PM EST): Patient has been treated for lumbar back issue since 2013, initially by Dr. Miller. She is noted to have disc herniation and L5-S1. She has participated in physical therapy in the past which she states only exacerbated her pain. She is now under the care of pain management, Dr. Munguia in [place]. She did not receive any cortisone injections that provided any benefit. She in the past has stated they discussed rhizotomy but has not actually carried through with the procedure. Patient is here today stating she is having a exacerbation in these issues that has failed to respond to any conservative measures including ibuprofen and Tylenol. Patient states in the past she has been able to take a warm bath and find benefit but even that is not working at this time.Goes back to Dr. Jain on the . Treat acute exacerbation with round of prednisone 40 mg daily for 7 days. Also reminded of general stretching exercises to limber up her back. Assessment & Plan (09/10/2023 9:47 AM EDT): Patient has been treated for lumbar back issues since 2013, initially by Dr. Miller. She reported some abnormality with L5-S1. She has participated in physical therapy which only exacerbated her pain. She is now under the care of of the management, Dr jain. She has received cortisone injections without benefit. She tells me today that they are wishing to pursue rhizotomy in the near future. Assessment & Plan (01/24/2023 12:55 PM EDT): First started in 2013. Now followed by Dr. Miller. Patient reports some abnormality with L5-S1. She is participating in physical therapy which she feels is exacerbating her pain. She has also received cortisone injections without benefit. Her next follow-up with Dr. Miller is later today. Assessment & Plan (12/18/2022 11:55 AM EDT): L5-S1 followed by Dr. Miller, now in PT. Has had injections Immunizations Immunization Administration Dates Next Due DTaP, Unspecified 10/07/1997 HPV Quadrivalent 01/10/2012 Hepatitis A 04/24/2019,10/23/2018 MMR 10/07/1997 OPV 10/07/1997 Tdap 10/25/2014,09/24/2005 Family History Relation Name Status Comments Father Alive Mother Alive Social History Tobacco Use Types Packs/Day Years Used Date Smoking Tobacco: Never Smokeless Tobacco: Never Tobacco Cessation:Counseling Given: Not Answered Alcohol Use Standard Drinks/Week Comments Never 0 (1 standard drink = 0.6 oz pur e alcohol) PHQ-2 Answer Date Recorded Retired PHQ-9: Brief Depression Severity Measure Score 0 12/18/2022 PHQ-2 Answer Date Recorded Patient Health Questionnaire-2 Score 0 07/06/2024 Comments Unknown Sex and Gender Information Value Date Recorded Sex Assigned at Not on file Legal Sex Female 10:55 AM EDT Gender Identity Not on file Sexual Orientation Not on file Last Filed Vital Signs Vital Sign Reading Time Taken Comments Blood Pressure 118/86 09/03/2024 9:24 AM EDT Pulse 78 09/03/2024 9:24 AM EDT Temperature 37 C (98.6 F) 09/03/2024 9:24 AM EDT Respiratory Rate 18 09/03/2024 9:24 AM EDT Oxygen Saturation 99% 09/03/2024 9:24 AM EDT Inhaled Oxygen Concentration - - Weight 103 kg (227 lb) 09/03/2024 9:24 AM EDT Height 157.5 cm (5' 2 ) 09/03/2024 9:24 AM EDT Body Mass Index 41.52 09/03/2024 9:24 AM EDT Plan of Treatment Health Maintenance Due Date Last Done Comments TDAP/TD VACCINES (3 - Td or Tdap) 10/25/2024 10/25/2014, 09/24/2005 INFLUENZA VACCINE 02/03/2025 03/21/2017, 03/21/2017 Annual Gynecologic Pelvic and Breast Exam 06/18/2025 06/17/2024 ANNUAL WELLNESS VISIT 07/06/2025 07/06/2024 , 12/23/2018, 12/17/2018, Additional history exists COVID-19 Vaccine ( season) 2025 09/12/2020 Postponed from 01/05/2024 (Patient Refused) PAP SMEAR 12/19/2025 12/19/2022 (Patient-Reported (Performed Externally)) HEPATITIS C SCREENING Completed 01/24/2023 HEMOGLOBIN A1C Discontinued 09/10/2023, 03/06, 07/18/2020, Additional history exists Pneumococcal Vaccine 0-49 Aged Out No longer eligible based on patient's age to complete this topic Procedures Procedure Name Priority Date/Time Associated Diagnosis Comments POCT GLYCOSYLATED HEMOGLOBIN (HGB A1C) Routine 09/10/2023 8:51 AM EDT Elevated fasting glucose HEPATITIS C ANTIBODY Routine 01/24/2023 12:13 PM EDT Need for hepatitis C screening test from Last 3 Months or Most Recently Relevant to Health Maintenance Results * POC Glycosylated Hemoglobin (Hb A1C) (09/10/2023 8:51 AM EDT) Hemoglobin A1C 5.5 4.5 - 5.7 % [facility] Lot Number [id number] [facility] Expiration Date [facility] Blood 09/10/2023 8:51 AM EDT us Jasmin Naik SENIOR ENVIRONMENTAL TECHNICIAN POINT OF CARE TEST ORDERABL ES Final Result [facility]
[address] [place] [address], * Hepatitis C Antibody (01/24/2023 12:13 PM EDT) Hep C Virus Ab Non Reactive Non Reactive [facility] Comment: HCV antibody alone does not differentiate between previously resolved infection and active infection. Equivocal and Reactive HCV antibody results should be followed up with an HCV RNA test to support the diagnosis of active HCV infection. Blood Structure of left upper limb / Unknown 01/24/2023 12:13 PM EDT 01/25/2023 Comment:Blood Release to varsha Greene [facility] (AM[facility]UL[facility]) - 01/25/2023 11:07 AM EDT Performed at: - [address] [id number] [employer]: Juan C Benavides PhD, Phone: [phone] Jasmin Naik APRN LAB BLOOD ORDERABLES Final Result [facility] [address] [place] [address], [facility] [address] [place] [address], [place] [phone] from Last 3 Months or Most Recently Relevant to Health Maintenance [place] [address] [address] [place] [address] MEDICARE A & B Care Teams Tipple Supervisor Relationship Specialty Start Date End Date Jasmin Naik APRN [address] [phone] PCP - General Family Medicine 12/18/22
--- OUTSIDE RECORDS SUMMARY | 2024-12-09 13:40 | XMS_ITS | Clinical Summary ---
Author Organization Healthcare Address [address] [place] [address] Care Team Providers Care Creel Hand Name Role Phone IsidroMarjorieaba Meléndez APRN Primary Care Provider [phone] Allergies No known active allergies Medications norgestimate-eth inyl estradiol (Sprintec 28) 0.25-35 MG-MCG tablet TAKE 1 TABLET DAILY. 09/16/2020 Active Hospital, Clinic, or Other Facility Administered Medication Ordered Dose Route Frequency Start Date End Date Status levonorgestrel (Halima) 13.5 MG IUDIndications:Menorrhagia with irregular cycle IU Once 11/23/2020 Acti ve Active Problems Problem Noted Date Diagnosed Date Anemia 09/01/2020 Other ovarian cyst, left side 09/01/2020 Immunizations Immunization Administration Dates Next Due DTaP, Unspecified 10/07/1997 HPV, Quadrivalent 01/10/2012 Hep A, Adult 04/24/2019,10/23/2018 [place] COVID-19 Vaccine (Blue Cap) 18+ 09/13/19 21 MMR 10/07/1997 OPV 10/07/1997 Tdap 09/24/2005 Family History Medical History Relation Name Comments Diabetes Mother Relation Name Status Comments Mother Social History Tobacco Use Types Packs/Day Years Used Date Smoking Tobacco: Never Smokeless Tobacco: Never Tobacco Cessation:Counseling Given: No Alcohol Use Standard Drinks/Week Comments No 0 (1 standard drink = 0.6 oz pure alcohol) Alcoholic Drinks/day: Denies alcohol consumption Comments Unknown Sex and Gender Information Value Date Recorded Sex Assigned at Not on file Legal Sex Female 8:29 PM EDT Gender Identity Not on file Sexual Orientation Not on file Last Filed Vital Signs Vital Sign Reading Time Taken Comments Blood Pressure 138/95 11/23/2020 2:29 PM EDT Pulse 97 11/23/2020 2:29 PM EDT Temperature - - Respiratory Rate - - Oxygen Saturation - - Inhaled Oxygen Concentration - - Weight 115 kg (253 lb 8.5 oz) 11/23/2020 2:29 PM EDT Height 157.5 cm (5' 2 ) 10/28/2020 8:53 AM EDT Body Mass Index 46.37 10/28/2020 8:53 AM EDT Plan of Treatment Health Maintenance Due Date Last Done Comments [facility]-Depression Screening 1993 [facility]-Infant/Child/Adol SDOH Screenings 1993 [facility]-IPV Vaccines (2 of 3 - 4-dose series) 11/04/1997 10/07/1997 [facility]-Varicella Vaccines (1 of 2 - 13+ 2-dose series) 2006 [facility]- SDOH Screenings 09/16/2011 [facility]-Adult SDOH Screenings 09/16/2011 HPV Vaccines (2 - 3-dose series) 02/07/2012 01/10/2012 [facility]-Hepatitis B Vaccines (1 of 3 - 19+ 3-dose series) 2012 [facility]-Pap Smear 2014 [facility]-DTaP,Tdap,and Td Vaccines (3 - Td or Tdap) 09/25/2015 09/24/2005, 10/07/1997 [facility]-Cervical Cancer Screening 09/16/2023 [facility]-HPV/Cotest 09/16/2023 JLT-SHLLX-20 Vaccine (2 - 2023- season) 2024 09/12/2020 [facility]-Influenza Vaccine (#1) 2025 [facility]-Zoster Vaccines (1 of 2) 09/16/2043 [facility]-Hepatitis A Vaccines Aged Out 019, 10/23/2018 No longer eligible based on patient's age to complete this topic [facility]-HIB Vaccines Aged Out No longer e ligible based on patient's age to complete this topic [facility]-Pneumococcal Vaccine: Pediatrics (0 to 5 Years) and At-Risk Patients (6 to 49 Years) Aged Out No longer eligible b ased on patient's age to complete this topic [facility]-Rotavirus Vaccines Aged Out No lo nger eligible based on patient's age to complete this topic [place] [address] [employer] MED[employer] Care Teams Creel Hand Relationship Specialty Start Date End Date Christiane Felix APRN [address] [place] [address] PCP - General 09/16/20
[2024-12-09 14:33] LABS: Hematocrit 39.3 % (37.0-47.0); Hemoglobin 13.1 g/dL (12.2-16.2); Immature Granulocytes % 0.4 %; Mean Corpuscular HGB Conc 33.3 g/dL (31.8-35.4); Mean Corpuscular Hemoglobin 29.5 pg (27.0-31.2); Mean Corpuscular Volume 88.5 fl (81-99); Nucleated Red Blood Cells % 0 %; Platelet Count 403 K/mm3 (142-424); Red Blood Count 4.44 M/mm3 (4.20-5.40); Red Cell Distribution Width-SD 38.4 fL; White Blood Count 11.4 K/mm3 (4.8-10.8)
[2024-12-09 15:00] LABS: Alanine Aminotransferase 17 U/L (12-78); Albumin Level 3.9 g/dl (3.5-5.0); Albumin/Globulin Ratio 1.4 (1.1-1.8); Alkaline Phosphatase 124 U/L (38-126); Anion Gap 10.0 mEq/L (5-15); Aspartate Amino Transferase 22 U/L (14-36); Bilirubin,Total 0.2 mg/dl (0.2-1.3); Blood Urea Nitrogen 15 mg/dl (7-17); Calcium 8.9 mg/dl (8.4-10.2); Carbon Dioxide 28 mmol/L (22.0-30.0); Chloride 106 mmol/L (98-107); Cholesterol 171 mg/dl (140-200); Creatinine,Serum 0.60 mg/dl (0.52-1.04); Estimated Glomerular Filt Rate 117 ml/min (>60); GFR (African American) 141 ML/MIN (>60); Globulin 2.8 g/dL (1.3-3.2); Glucose 95 mg/dl (74-100); HDL Cholesterol 44 mg/dl (40-60); Magnesium 1.6 mg/dl (1.6-2.3); Potassium 4.0 mmoL/L (3.5-5.1); Sodium 140 mmol/L (136-145); Total Protein,Serum 6.7 g/dl (6.3-8.2); Triglycerides 109 mg/dl (30-150)
[2024-12-09 15:15] LABS: 25-OH Vitamin D, Total 34.3 ng/mL (30-100)
[2024-12-09 15:16] LABS: T4 (Thyroxine) 12.5 ug/dl (5.53-11.0)
[2024-12-09 15:30] LABS: Thyroid Stimulating Hormone 1.21 uIU/mL (0.465-4.68)
[2024-12-09 15:31] LABS: Iron 75 ug/dL (37-170)
[2024-12-09 15:49] LABS: Vitamin B12 562 pg/mL (239-931)
[2024-12-09 17:16] LABS: Hemoglobin A1C 5.0 % (4.0-6.0)
== END 2024-12-09 23:59 | disposition home or self-care (01) ==
LOC: LAB 13:37
PROVIDERS: PCP Nurse Practitioner; Visit Provider Nurse Practitioner Psychiatric/Mental Health
DX: F33.0 Major depressive disorder, recurrent, mild (principal); Z79.899 Other long term (current) drug therapy; D50.9 Iron deficiency anemia, unspecified; E55.9 Vitamin D deficiency, unspecified
CPT/HCPCS: 36415; 80053; 80061; 82306; 82607; 83036; 83540; 83735; 84436; 84443; 84480; 85025

== ENCOUNTER 2025-01-14 14:20 | Outpatient (CLI) | payer MEDICARE, OTHER, SELFPAY ==
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
--- NOTE | 2025-01-14 14:27 | XR_ITS ---
FINAL REPORT CLINICAL HISTORY: ACUTE KNEE PAIN FINDINGS: AP, lateral and oblique views of the left knee were obtained. There is no prior exam for comparison. There is no acute osseous abnormality of the left knee. The joint space is preserved. The soft tissues are normal. There is no joint effusion. IMPRESSION: No acute osseous abnormality of the left knee. Reviewed, Interpreted and Dictated by Kelly Rosales MD Transcribed by Shadia Beth Authenticated and [facility]
--- OUTSIDE RECORDS SUMMARY | 2025-01-14 14:46 | XMS_ITS | Encounter Summary ---
Author [facility] Address [address] [place] [id number] Care Team Providers Care Counter Attendant Name Role Phone Jasmin Naik APRN Primary Care Provider Encounter Details Date Type Department Care Team (Latest Contact Info) Description 01/14/2025 Travel Social History Tobacco Use Types Packs/Day Years [...] on file documented as of this encounter Plan of Treatment Not on file documented as of this encounter Visit Diagnoses Not on filedocumented in this encounter Care Teams Counter Attendant Relationship Specialty Start Date End Date Jasmin Naik APRN [address] [place] [address] PCP - General Family Medicine 12/18/22 documented as of this encounter
--- OUTSIDE RECORDS SUMMARY | 2025-01-14 14:46 | XMS_ITS | Clinical Summary ---
Author Organization [facility] Address [address] [place] [address] Care Team Providers Care Director Of Strategic Partnerships Name Role Phone Jasmin Naik APRN Primary Care Provider [phone] Allergies No known active allergies Medications busPIRone (BUSPAR) 15 MG tablet 3 Active sertraline (ZOLOFT) 100 MG tablet 3 Active QUEtiapine (SEROquel) 25 MG tablet Take 1 tablet by mouth Every Night. 4 Active guanFACINE HCl ER 3 MG tablet sustained-relea se 24 hour Take 3 mg by mouth every night at bedtime. 5 Active nystatin (MYCOSTATIN) 155679 UNIT/GM powder Apply topically to the appropriate area as directed 3 (Three) Times a Day. 30 g 5 Active Vitamin D, Cholecalciferol , 25 MCG (1000 UT) capsule Take 1 capsule by mouth Daily. 90 capsule 1 5 Active omeprazole (priLOSEC) 20 MG capsuleIndicati ons:Gastroesoph ageal reflux disease without esophagitis Take 1 capsule by mouth Daily. 90 capsule 2 5 Active predniSONE (DELTASONE) 20 MG tabletIndicatio ns:Acute pain of left knee Take 2 tablets by mouth Daily for 5 days. 10 tablet 5 025 Active cetirizine (zyrTEC) 10 MG tabletIndicatio ns:Non-seasonal allergic rhinitis, unspecified trigger Take 1 tablet by mouth Daily. 30 tablet 5 Active fluticasone (FLONASE) 50 MCG/ACT nasal sprayIndication s:Acute non-recurrent maxillary sinusitis Administer 2 sprays into the nostril(s) as directed by provider Daily. 11.1 g 5 Active amoxicillin (AMOXIL) 875 MG tabletIndicatio ns:Acute non-recurrent maxillary sinusitis Take 1 tablet by mouth 2 (Two) Times a Day for 10 days. 20 tablet 5 025 Active cetirizine (zyrTEC) 10 MG tabletIndicatio ns:Non-seasonal allergic rhinitis, unspecified trigger Take 1 tablet by mouth Daily. 30 tablet 4 025 Discontin ued(Reord er) Active Problems Problem Noted Date Diagnosed Date Acute non-recurrent maxillary sinusitis 01/15/20 25 Acute pain of left knee 01/14/2025 Non-seasonal allergic rhinitis 01/14/2025 Vitamin D deficiency 09/03/2024 Yeast dermatitis 09/03/2024 Assessment & Plan (09/03/2024 12:58 PM EDT): Patient physical exam findings consistent with that of a yeast dermatitis of the umbilicus. Patient advised to keep region dry and clean, utilizing warm water and antibacterial soap, encourage thorough drying after bathing. Prescribed nystatin powder for further treatment Initial Medicare annual wellness visit 5 Chronic constipation 07/06/2024 Assessment & Plan (07/09/2024 4:41 PM EST): Patient currently being followed by GI, Dr. Humberto Hernandez at [facility]. Patient is currently utilizing MiraLAX as [...] Dr. Munguia who would like to pursue aguila pa. Patient currently finding benefits with warm baths when her legs are particularly uncomfortable. Denies any change in bowel or bladder. Menorrhagia with regular cycle 09/10/2023 Assessment & Plan (09/20/2023 12:32 PM EDT): Patient continues to have complaints of heavy bleeding after undergoing bilateral oophorectomy and D&C with her HOSPITALITY COORDINATOR a couple of weeks ago. She states she is heavily bled for 12 days straight. He has appointment to follow-up with Dr. Sellers, address this matter in a couple of days. Assessment & Plan (09/10/2023 9:48 AM EDT): Followed by HOSPITALITY COORDINATOR, Dr. Sellers. Recent oophorectomy and D&C due [...] of rest and fluids. Also educated on grfs-hzq-isaglic throat analgesics in the form of lozenges [...] of 7.3. She was immediately sent to [facility] emergency department for blood transfusion due to symptomatic anemia. Patient had experienced significant vaginal bleeding after placement of IUD x4 weeks. She also has longstanding history of iron deficiency anemia, followed by Dr. Ashton, hematology. Patient received iron infusion as well as 1 unit PRBC in the emergency department without incident. She has since followed up with [facility] with complete resolution of vaginal bleeding. She [...] of 7.6. She was directed to her solution engineer, Dr. Ashton with history of iron deficiency [...] after placement of an IUD with her HAND MOLDER AND CASTER. Patient notes saturating 1 pad every few hours for 4 weeks. Her vaginal bleeding has now subsided. She denies any vaginal pain, discomfort, abdominal bloating or nausea. On physical exam patient's vital signs are stable, she is noted to have pale mucous membranes and skin. My nurse has discussed setting up infusion with [facility], talking both to emergency room staff and clinical tank house operator helper. Patient is being directed to report to [...] care of pain management, Dr. Munguia in [place]. She did not receive any cortisone injections [...] care of pain management, Dr. Munguia in [place]. She did not receive any cortisone injections [...] care of pain management, Dr. Munguia in [place]. She did not receive any cortisone injections [...] without benefit. Her next follow-up with Dr. Millre is later today. Assessment & Plan (12/18/2022 11:55 AM EDT): L5-S1 followed by Dr. Miller, now in PT. Has had injections Encounters Date Type Department Care Team Description 01/14/2025 11:00 AM EDT Office Visit [facility] [address] [place] [address] [place] [phone] Jasmin Naik, WEATHERSEAL TECHNICIAN Gastroesophageal reflux disease without esophagitis (Primary Dx); Acute pain of left knee; Non-seasonal allergic rhinitis, unspecified trigger; Acute non-recurrent maxillary sinusitis; Other chest pain 01/14/2025 Travel from Last 3 Months Immunizations Immunization Administration Dates Next Due DTaP, [...] Mass Index 42.62 01/14/2025 10:59 AM EDT Plan of Treatment Health Maintenance Due Date Last Done Comments COVID-19 Vaccine ( season) 2025 09/12/2020 INFLUENZA VACCINE 02/03/2025 03/21/2017, 03/21/2017 Annual Gynecologic Pelvic and Breast Exam 06/18/2025 06/17/2024 ANNUAL WELLNESS VISIT 07/06/2025 07/06/2024 , 12/23/2018, 12/17/2018, Additional history exists PAP SMEAR 12/19/2025 12/19/2022 (Patient-Reported (Performed Externally)) TDAP/TD VACCINES (4 - Td or Tdap) 09/27/2034 09/27/2024, 10/25/2014, 09/24/2005 HEPATITIS C SCREENING Completed 01/24/2023 HEMOGLOBIN A1C Discontinued 09/10/2023, 03/06, 07/18/2020, Additional history exists Pneumococcal Vaccine 0-49 Aged Out No longer eligible based on patient's age to complete this topic Procedures Procedure Name Priority Date/Time Associated Diagnosis Comments ECG 12-LEAD Routine 01/14/2025 1:06 PM EDT Other chest pain POCT GLYCOSYLATED HEMOGLOBIN (HGB A1C) Routine 09/10/2023 8:51 AM EDT Elevated fasting glucose HEPATITIS C ANTIBODY Routine 01/24/2023 12:13 PM EDT Need for hepatitis C screening test from Last 3 Months or Most Recently Relevant to Health Maintenance Results * ECG 12-LEAD (01/14/2025 1:06 PM [...] Naik APRN ECG ORDERABLES Final Resul t * POC Glycosylated Hemoglobin (Hb A1C) (09/10/2023 8:51 AM EDT) Hemoglobin A1C 5.5 4.5 - 5.7 % [facility] Lot Number [id number] [facility] Expiration Date [facility] Blood 09/10/2023 8:51 AM EDT Jasmin Naik APRN POINT OF CARE TEST ORDERABL ES Final Result [facility]
[address] [place] [address], [place] [phone] * Hepatitis C Antibody (01/24/2023 12:13 PM [...] 12:13 PM EDT 01/25/2023 Comment:Blood Release to [facility] Narrative [facility] ([facility]) - 01/25/2023 11:07 AM EDT Performed at: 01 - [address] [id number] Assistant Front Office Manager: Juan C Benavides PhD, Phone: [phone] Jasmin Naik APRN LAB BLOOD ORDERABLES Final Result Performing Organization Address City/[facility] Co de Phone Number [facility] [address] [place] [address], [place] [phone] [facility] [address] [place] [address], [place] [phone] from Last 3 Months or Most Recently Relevant to Health Maintenance Insurance [facility] MEDICARE A & B Care Teams Director Of Strategic Partnerships Relationship Specialty Start Date End Date Jasmin Naik APRN [address] [place] [id number] PCP - General Family Medicine 12/18/22
--- OUTSIDE RECORDS SUMMARY | 2025-01-14 14:46 | XMS_ITS ---
Laboratory report Created on: December 12, 2024 NYEPASCUAL HillLEY : 1995 Sex: Female Author Organization Unknown PROBLEMS Problems List Code Description RESULTS Laboratory Orders Date Order Code Test 2024-12-09 [id number] TRIIODOTHYRONINE (T3) Laboratory Results Date LOINC Test Value Unit Reference Range Interpre tation 2024-12-09 3053-6 TRIIODOTHYRONINE (T3) 177 NG/DL 71-180
--- OUTSIDE RECORDS SUMMARY | 2025-01-14 14:46 | XMS_ITS | Clinical Summary ---
Author Organization Healthcare Address [address] [place] [address] Care Team Providers Care Anodic Operator Name Role Phone IsidroMarjorieaba Meléndez APRN Primary Care Provider [phone]- [phone] Allergies No known active allergies Medications norgestimate-eth [...] Date Last Done Comments [facility]-Depression Screening 1993 [facility]-/Child/Adol SDOH Screenings 1995 [facility]-IPV Vaccines (2 of [...] 10/07/1997 [facility]-Cervical Cancer Screening 09/16/2023 [facility]-HPV/Cotest 09/16/2023 [id number] Vaccine (2 - 2024- season) 2025 09/12/2020 [facility]-Influenza Vaccine (#1) 2025 [facility]-Zoster Vaccines [...] age to complete this topic [place] [address] [employer] Care Teams Anodic Operator Relationship Specialty Start Date End Date Christiane Felix APRN [address] [place] [address] PCP - General 09/16/20
== END 2025-01-14 23:59 | disposition home or self-care (01) ==
LOC: RAD 14:21
PROVIDERS: PCP Nurse Practitioner; Visit Provider Nurse Practitioner
DX: M25.562 Pain in left knee (principal)
CPT/HCPCS: 73562

== ENCOUNTER 2025-04-10 17:50 | Emergency (ER) | payer MEDICARE, OTHER, SELFPAY ==
[2025-04-10] VITALS (8 sets, daily range): BP systolic 80–116; BP diastolic 44–72; PULSE 68–90; RESP 18–19; TEMP 36.7–36.9; O2SAT 98–100; BMI 42.0
--- OUTSIDE RECORDS SUMMARY | 2025-04-10 17:56 | XMS_ITS | Encounter Summary ---
Author Organization [facility] Address [address] [place] [address] Care Team Providers Care Bee Breeder Name Role Phone Jasmin Naik APRN Primary Care Provider [phone] Reason for Visit * Reason Onset Date Comments Results 02/23/2025 Encounter Details Date Type Department Care Team (Late st Contact Info) Description 02/23/2025 Telephone [facility] [address] [place] [phone] Jasmin Naik APRN [address] [place] [id number] Results Social History Tobacco Use Types Packs/Day Years [...] on file documented as of this encounter Miscellaneous Notes * Telephone Encounter - Adriana German RegSched Rep - 03/09/2025 4:07 PM EST Name: Teodora Leonard Relationship: Self Best Callback Number: [phone] HUB PROVIDED THE RELAY MESSAGE FROM THE OFFICE PATIENT: VOICED UNDERSTANDING AND HAS NO FURTHER QUESTIONS AT THIS TIME ADDITIONAL INFORMATION: * Telephone Encounter - Merly Grayson MA - 02/24/2025 3:32 PM EDT Called and left a message that xray was normal and if she has any questions or concerns to call ouroffice * Telephone Encounter - Jannet Stone RegSched Rep - 02/23/2025 11:54 AM EDT Caller: Teodora Leonard Relationship: Self Best call back number: Telephone Information: What test was performed: X-RAY OF RIGHT KNEE When was the test performed: WEEK OF 01/10/25 Where was the test performed: [facility] Additional notes: documented in this encounter Plan of Treatment Not on file documented as of this encounter Visit Diagnoses Not on filedocumented in this encounter Care Teams Bee Breeder Relationship Specialty Start Date End Date Jasmin Naik APRN [address] [place], [place] [id number] PCP - General Family Medicine 12/18/22 documented as of this encounter
--- OUTSIDE RECORDS SUMMARY | 2025-04-10 17:56 | XMS_ITS | Clinical Summary ---
Author Organization Healthcare Address [address] [place] [address] Care Team Providers Care Kitchen Worker Name Role Phone IsidroMarjorieaba Meléndez APRN Primary Care Provider [phone]- [phone] Allergies No known active allergies Medications norgestimate-eth [...] 10/07/1997 [facility]-Cervical Cancer Screening 09/16/2023 [facility]-HPV/Cotest 09/16/2023 [id number] Vaccine (2 - 2024- season) 2025 09/12/2020 [...] age to complete this topic [place] [address] [employer] MED[employer] Care Teams Kitchen Worker Relationship Specialty Start Date End Date Christiane Felix APRN [address] [place] [address] PCP - General 09/16/20
--- OUTSIDE RECORDS SUMMARY | 2025-04-10 17:56 | XMS_ITS ---
Laboratory report Created on: April 06, 2025 GENA NYE : 1995 Sex: Female Author Name ADAN MICHAEL [employer] Unknown PROBLEMS Problems List Code Description E55.9 RESULTS Laboratory Orders Date Order Code Test 2024-09-03 [id number] VITAMIN B12 2024-09-03 512324 FOLATE (FOLIC AC ID), SERUM 2024-09-03 [id number] VITAMIN D, 25-HY DROXY Laboratory Results Date LOINC Test Value Unit Reference Range Interpre tation 2024-09-03 2132-9 VITAMIN B12 431 PG/ML 232-1245 2024-09-03 2284-8 FOLATE (FOLIC AC ID), SERUM 3.7 NG/ML >3.0 2024-09-03 00864-0 VITAMIN D, 25-HYDROXY 25.3 NG/ML 30.0-10 0.0 L
--- OUTSIDE RECORDS SUMMARY | 2025-04-10 17:56 | XMS_ITS ---
Laboratory report Created on: April 06, 2025 NYEPASCUAL HillLEY : 1995 Sex: Female Author Name CY WOODS Organization Unknown PROBLEMS Problems List Code Description R30.0 RESULTS Laboratory Orders Date Order Code Test 2023-04-15 [id number] URINE CULTURE, R OUTINE Laboratory Results Date LOINC Test Value Unit Reference Range Interpre tation 2023-04-15 630-4 URINE CULTURE, ROUTINE FINAL 2023-04-15 630-4 RESULT 1 MUG
--- OUTSIDE RECORDS SUMMARY | 2025-04-10 17:56 | XMS_ITS | Clinical Summary ---
[facility] Organization [facility] Address [address] [place] [address] Care Team Providers Care Whiskey Filterer Name Role Phone Jasmin Naik APRN Primary Care Provider [phone] Allergies No known active allergies Medications busPIRone (BUSPAR) 15 MG tablet 3 Active sertraline (ZOLOFT) 100 MG tablet 3 Active QUEtiapine (SEROquel) 25 MG tablet Take 1 tablet by mouth Every Night. 4 Active guanFACINE HCl ER 3 MG tablet sustained-releas e 24 hour Take 3 mg by mouth every night at bedtime. 5 Active nystatin (MYCOSTATIN) 722396 UNIT/GM powder Apply topically to the appropriate area as directed 3 (Three) Times a Day. 30 g 5 Active Vitamin D, Cholecalciferol, 25 MCG (1000 UT) capsule Take 1 capsule by mouth Daily. 90 capsule 1 5 Active omeprazole (priLOSEC) 20 MG capsuleIndicatio ns:Gastroesophag eal reflux disease without esophagitis Take 1 capsule by mouth Daily. 90 capsule 2 5 Active cetirizine (zyrTEC) 10 MG tabletIndication s:Non-seasonal allergic rhinitis, unspecified trigger Take 1 tablet by mouth Daily. 30 tablet 5 Active fluticasone (FLONASE) 50 MCG/ACT nasal sprayIndications :Acute non-recurrent maxillary sinusitis Administer 2 sprays into the nostril(s) as directed by provider Daily. 11.1 g 5 Active Active Problems Problem Noted Date [...] followed by GI, Dr. Humberto Hernandez at [facility]. Patient is currently utilizing MiraLAX as [...] Dr. Munguia who would like to pursue risbelloo pr. Patient currently finding benefits with warm baths when her legs are particularly uncomfortable. Denies any change in bowel or bladder. Menorrhagia with regular cycle 09/10/2023 Assessment & Plan (09/20/2023 12:32 PM EDT): Patient continues to have complaints of heavy bleeding after undergoing bilateral oophorectomy and D&C with her [employer] a couple of weeks ago. She states she is heavily bled for 12 days straight. He has appointment to follow-up with Dr. Sellers, address this matter in a couple of days. Assessment & Plan (09/10/2023 9:48 AM EDT): Followed by ELECTRODE [employer], Dr. Sellers. Recent oophorectomy and D&C due [...] of rest and fluids. Also educated on [id number]-[id number]-viyshah throat analgesics in the form of lozenges [...] of 7.3. She was immediately sent to [facility] emergency department for blood transfusion due to symptomatic anemia. Patient had experienced significant vaginal bleeding after placement of IUD x4 weeks. She also has longstanding history of iron deficiency anemia, followed by Dr. Ashton, hematology. Patient received iron infusion as well as 1 unit PRBC in the emergency department without incident. She has since followed up with [employer] with complete resolution of vaginal bleeding. She [...] of 7.6. She was directed to her punch out crew member, Dr. Ashton with history of iron deficiency [...] after placement of an IUD with her [employer]. Patient notes saturating 1 pad every few hours for 4 weeks. Her vaginal bleeding has now subsided. She denies any vaginal pain, discomfort, abdominal bloating or nausea. On physical exam patient's vital signs are stable, she is noted to have pale mucous membranes and skin. My nurse has discussed setting up infusion with [facility], talking both to emergency room staff and clinical firer powerhouse. Patient is being directed to report to [...] care of pain management, Dr. Munguia in [place]. She did not receive any cortisone injections [...] care of pain management, Dr. Munguia in [place]. She did not receive any cortisone injections [...] care of pain management, Dr. Munguia in [place]. She did not receive any cortisone injections [...] Encounters Date Type Department Care Team Description 02/23/2025 Telephone [facility] [address] [place] [address] [place] [phone] Jasmin Naik, PLANT NURSERY WORKER Results 01/22/2025 Telephone [facility] [address] [place] [address] [place] [phone] Jasmin Naik, PLANT NURSERY WORKER Results 01/14/2025 11:00 AM EDT Office Visit [facility] [address] [place] [address] [place] [phone] Jasmin Naik, PLANT NURSERY WORKER Gastroesophageal reflux disease without esophagitis (Primary Dx); [...] Health Maintenance Due Date Last Done Comments INFLUENZA VACCINE 12/04/2024 03/21/2017, 03/21/2017 Annual Gynecologic Pelvic and Breast Exam 06/18/2025 06/17/2024 ANNUAL WELLNESS VISIT 07/06/2025 07/06/2024 , 12/23/2018, 12/17/2018, Additional history exists PAP SMEAR 12/19/2025 12/19/2022 (Patient-Reported (Performed Externally)) TDAP/TD VACCINES (4 - Td or Tdap) 09/27/2034 09/27/2024, 10/25/2014, 09/24/2005 HEPATITIS C SCREENING Completed 01/24/2023 HEMOGLOBIN A1C Discontinued 12/09/2024, 0511/2023, 03/23/2022, Additional history exists Pneumococcal Vaccine 0-49 Aged Out No longer eligible based on patient's age to complete this topic Procedures Procedure Name Priority Date/Time Associated Diagnosis Comments ECG 12-LEAD Routine 01/14/2025 1:06 PM EDT Other chest pain SCANNED EKG 01/14/2025 SCANNED - IMAGING 01/14/2025 POCT GLYCOSYLATED HEMOGLOBIN (HGB A1C) Routine 09/10/2023 [...] APRN ECG ORDERABLES Final Resul t * ECG Scan (01/14/2025) Jasmin Naik APRN ECG ORDERABLES Final Resul t * IMAGING SCANNED (01/14/2025) Anatomical Region Laterality Modality Radiographic Idalia ging Jasmin Naik APRN IMG DIAGNOSTIC IMAGING ORDE RABLES Final Result * POC Glycosylated Hemoglobin (Hb A1C) (09/10/2023 8:51 AM EDT) Hemoglobin A1C 5.5 4.5 - 5.7 % [facility] Lot Number [id number] [facility] Expiration Date [facility] Blood 09/10/2023 8:51 AM EDT Jasmin Naik APRN POINT OF CARE TEST ORDERABL ES Final Result [facility]
[address] [place] [id number], * Hepatitis C Antibody (01/24/2023 12:13 PM [...] 12:13 PM EDT 01/25/2023 Comment:Blood Release to [facility] Narrative [facility] (AMBULAT[facility]) - 01/25/2023 11:07 AM EDT Performed at: 01 - [address] [id number] Associate Drafter: Juan C Benavides PhD, Phone: [phone] Jasmin Naik APRN LAB BLOOD ORDERABLES Final Result Performing Organization Address City/[facility]/ZIP Co de Phone Number [facility] (AMBULATORY) [address] [place] [address], [place] [phone] [facility] [address] [place] [address], [place] [phone] from Last 3 Months or Most Recently Relevant to Health Maintenance Insurance [facility] MEDICARE A & B Care Teams Whiskey Filterer Relationship Specialty Start Date End Date Jasmin Naik APRN [address] [place], [place] [id number] PCP - General Family Medicine 12/18/22
--- OUTSIDE RECORDS SUMMARY | 2025-04-10 17:56 | XMS_ITS ---
Laboratory report Created on: April 06, 2025 NYE GENA : 1995 Sex: Female Author Organization Unknown PROBLEMS Problems List Code Description RESULTS Laboratory Orders Date Order Code Test 2024-12-09 [id number] TRIIODOTHYRONINE (T3) Laboratory Results Date LOINC Test Value Unit Reference Range Interpre tation 2024-12-09 3053-6 TRIIODOTHYRONINE (T3) 177 NG/DL 71-180
--- NOTE | 2025-04-10 18:00 | XR_ITS ---
PROCEDURE INFORMATION: Exam: XR Pelvis Exam date and time: 04/10/2025 6:11 PM Age: 29 years old Clinical indication: Injury or trauma; Fall; Blunt trauma (contusions or hematomas); Bilateral; Hip; Additional info: Right leg pain TECHNIQUE: Imaging protocol: Radiologic exam of the pelvis. Views: 1 or 2 view. COMPARISON: CT ABDOMEN PELVIS WO CON 06/26/2020 9:13 PM FINDINGS: Bones/joints: Osseous alignment is normal. No acute fracture. No significant arthritic change. Soft tissues: Unremarkable. IMPRESSION: Negative pelvis
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
--- NOTE | 2025-04-10 18:01 | XR_ITS ---
PROCEDURE INFORMATION: Exam: XR Right Shoulder Exam date and time: 04/10/2025 6:11 PM Age: 29 years old Clinical indication: Injury or trauma; Fall; Blunt trauma (contusions or hematomas); Shoulder; Right; Additional info: Fall right shoulder pain TECHNIQUE: Imaging protocol: Radiologic exam of the right shoulder. Views: 2 or more views. COMPARISON: CR XR HUMERUS RT 04/10/2025 6:11 PM FINDINGS: Bones/joints: Comminuted and mildly impacted fracture of the right humeral neck. No other acute fracture evident. Acromioclavicular and glenohumeral joints are normally aligned. Soft tissues: Normal. IMPRESSION: Proximal humerus fracture as described
--- NOTE | 2025-04-10 18:01 | XR_ITS ---
PROCEDURE INFORMATION: Exam: XR Right Knee Exam date and time: 04/10/2025 6:11 PM Age: 29 years old Clinical indication: Injury or trauma; Fall; Blunt trauma; Knee; Right; Additional info: Right knee pain after fall TECHNIQUE: Imaging protocol: Radiologic exam of the right knee. Views: 3 views. COMPARISON: CR XR KNEE RT 3V 09/27/2024 9:06 PM FINDINGS: Bones/joints: Significantly comminuted fracture of the proximal tibia extending throughout the mid tibial plateau and proximal tibial metaphysis. Mild displacement of fracture fragments. Distal femur, patella and proximal fibula appear intact. Small volume joint fluid. Soft tissues: Normal. IMPRESSION: Proximal tibial fracture as described
--- NOTE | 2025-04-10 18:01 | XR_ITS ---
PROCEDURE INFORMATION: Exam: XR Right Humerus Exam date and time: 04/10/2025 6:11 PM Age: 29 years old Clinical indication: Injury or trauma; Fall; Blunt trauma (contusions or hematomas); Shoulder; Right; Additional info: Fall right arm pain TECHNIQUE: Imaging protocol: Radiologic exam of the right humerus. Views: 2 or more views. COMPARISON: CR XR SHOULDER RT MIN 2V 04/10/2025 6:11 PM FINDINGS: Bones/joints: There is a comminuted and impacted fracture of the right humeral neck with moderate lateral displacement of the greater tuberosity fragment. No other evidence of acute fracture. Glenohumeral and acromioclavicular joints appear normally aligned. Mild degenerative changes of the glenohumeral joint. Soft tissues: Normal. IMPRESSION: Right humeral neck fracture as described
--- NOTE | 2025-04-10 18:02 | XR_ITS ---
PROCEDURE INFORMATION: Exam: XR Right Tibia and Fibula Exam date and time: 04/10/2025 6:11 PM Age: 29 years old Clinical indication: Injury or trauma; Fall; Blunt trauma; Knee; Right; Additional info: Fall right leg pain TECHNIQUE: Imaging protocol: Radiologic exam of the right tibia and fibula. Views: 2 views. COMPARISON: CR XR KNEE RT 3V 09/27/2024 9:06 PM FINDINGS: Bones/joints: There is a comminuted fracture of the proximal tibia extending from the midportion of the tibial plateau throughout the tibial metaphysis. Minimal displacement of fragments is present. No other acute fracture evident. Osseous alignment otherwise appears normal Soft tissues: Normal. IMPRESSION: Comminuted proximal tibial fracture as described
--- NOTE | 2025-04-10 18:05 | XR_ITS ---
PROCEDURE INFORMATION: Exam: XR Right Elbow Exam date and time: 04/10/2025 6:11 PM Age: 29 years old Clinical indication: Injury or trauma; Fall; Blunt trauma (contusions or hematomas); Elbow; Right; Additional info: Right elbow pain after fall TECHNIQUE: Imaging protocol: Radiologic exam of the right elbow. Views: 1 or 2 views. COMPARISON: CR XR ELBOW RT 2V 09/27/2024 9:06 PM FINDINGS: Bones/joints: Study limited by lack of AP view and somewhat rotated positioning on the lateral view. Osseous alignment appears normal. No acute fracture. No focal osseous lesion. Soft tissues: Normal. IMPRESSION: No acute abnormality
[2025-04-10] MEDS: ACETAMINOPHEN 500MG TAB 500 MG PO (18:29)
[2025-04-10] MEDS: IBUPROFEN 400 MG TABLET PO (18:29)
--- NOTE | 2025-04-10 18:55 | CT_ITS ---
PROCEDURE INFORMATION: Exam: CT Right Lower Extremity Without Contrast, Knee Exam date and time: 04/10/2025 7:15 PM Age: 29 years old Clinical indication: Injury or trauma; Fall; Blunt trauma; Knee; Right; Additional info: Right knee fracture after fall TECHNIQUE: Imaging protocol: CT of the right lower extremity without contrast was performed. Exam focused on the knee. Radiation optimization: All CT scans at this facility use at least one of these dose optimization techniques: automated exposure control; mA and/or kV adjustment per patient size (includes targeted exams where dose is matched to clinical indication); or iterative reconstruction. COMPARISON: CR XR KNEE RT 3V 04/10/2025 6:11 PM FINDINGS: Bones/joints: There is a significantly comminuted intra-articular fracture of the proximal tibia extending from the midportion of the tibial plateau throughout the tibial metaphysis. [id number] displacement of multiple fragments noted. There is a small osseous fragment within the joint space just below the intercondylar notch of the femur. Moderate depression of the major posteromedial tibial plateau fragment. There is a nondisplaced fracture of the fibular head with minimal comminution. Distal femur and patella appear intact. Moderate volume lipohemarthrosis. Soft tissues: Moderate pretibial soft tissue edema. No large hematoma. Soft tissues are otherwise unremarkable. IMPRESSION: Fractures of the proximal tibia and fibula as described with moderate volume associated lipohemarthrosis
[2025-04-10 18:56] LABS: Alanine Aminotransferase 23 U/L (12-78); Albumin Level 4.2 g/dl (3.5-5.0); Albumin/Globulin Ratio 1.2 (1.1-1.8); Alkaline Phosphatase 104 U/L (38-126); Anion Gap 8.5 mEq/L (5-15); Aspartate Amino Transferase 31 U/L (14-36); Bilirubin,Total 0.4 mg/dl (0.2-1.3); Blood Urea Nitrogen 15 mg/dl (7-17); Calcium 9.0 mg/dl (8.4-10.2); Carbon Dioxide 28 mmol/L (22.0-30.0); Chloride 101 mmol/L (98-107); Creatinine Clearance Estimated 81 mL/min (50-200); Creatinine,Serum 0.80 mg/dl (0.52-1.04); Estimated Glomerular Filt Rate 84 ml/min (>60); GFR (African American) 101 ML/MIN (>60); Globulin 3.4 g/dL (1.3-3.2); Glucose 189 mg/dl (74-100); Potassium 3.5 mmoL/L (3.5-5.1); Sodium 134 mmol/L (136-145); Total Protein,Serum 7.6 g/dl (6.3-8.2)
--- NOTE | 2025-04-10 18:57 | CT_ITS ---
PROCEDURE INFORMATION: Exam: CT Cervical Spine Without Contrast Exam date and time: 04/10/2025 7:10 PM Age: 29 years old Clinical indication: Injury or trauma; Fall; Blunt trauma TECHNIQUE: Imaging protocol: Computed tomography of the cervical spine without contrast. Radiation optimization: All CT scans at this facility use at least one of these dose optimization techniques: automated exposure control; mA and/or kV adjustment per patient size (includes targeted exams where dose is matched to clinical indication); or iterative reconstruction. COMPARISON: CR XR MULTIPLE SPINE 6+V 08/27/2022 4:29 PM FINDINGS: Bones: Cervical vertebrae normal in height. No acute fracture. Minimal dextroconvex curvature.Reversal of normal cervical lordosis. Maintained craniocervical junction. Mild degenerative changes.No severe neural foraminal narrowing or spinal canal stenosis. Lungs: Lung apices are normal. Soft tissues: Unremarkable. IMPRESSION: No acute osseous findings.
--- NOTE | 2025-04-10 18:57 | CT_ITS ---
PROCEDURE INFORMATION: Exam: CT Head Without Contrast Exam date and time: 04/10/2025 7:08 PM Age: 29 years old Clinical indication: Injury or trauma; Fall; Blunt trauma (contusions or hematomas); Additional info: Fall, head trauma TECHNIQUE: Imaging protocol: Computed tomography of the head without contrast. Radiation optimization: All CT scans at this facility use at least one of these dose optimization techniques: automated exposure control; mA and/or kV adjustment per patient size (includes targeted exams where dose is matched to clinical indication); or iterative reconstruction. COMPARISON: No relevant prior studies available. FINDINGS: Brain: No acute intracranial hemorrhage, midline shift, or mass effect. Cerebral ventricles: No ventriculomegaly. Paranasal sinuses: Left maxillary sinus mucous retention cyst. Mastoid air cells: Visualized mastoid air cells are well aerated. Bones: Unremarkable. No acute fracture. Soft tissues: Unremarkable. IMPRESSION: No acute intracranial findings.
[2025-04-10 19:02] LABS: Hematocrit 38.7 % (37.0-47.0); Hemoglobin 12.9 g/dL (12.2-16.2); Immature Granulocytes % 0.8 %; Mean Corpuscular HGB Conc 33.3 g/dL (31.8-35.4); Mean Corpuscular Hemoglobin 29.5 pg (27.0-31.2); Mean Corpuscular Volume 88.6 fl (81-99); Nucleated Red Blood Cells % 0 %; Platelet Count 435 K/mm3 (142-424); Red Blood Count 4.37 M/mm3 (4.20-5.40); Red Cell Distribution Width-SD 39.2 fL; White Blood Count 25.5 K/mm3 (4.8-10.8)
[2025-04-10 19:53] LABS: Hepatitis C Ab Qual. W/ RFX NEGATIVE (Negative)
[2025-04-10 19:55] LABS: RBC Morphology Normal; Total Cells Counted 100
[2025-04-10] MEDS: FENTANYL 250MCG/5ML VIAL 25 MCG IV (20:22)
[2025-04-10] MEDS: ONDANSETRON 4MG/2ML VIAL 4 MG IV (20:23)
[2025-04-10] MEDS: LACTATED RINGERS 1000ML 1,000 ML 999 ML IV (20:25)
== END 2025-04-10 20:42 | disposition other institution (70) ==
PROVIDERS: Physician Assistant; Emergency Provider Student in an Organized Health Care Education/Training Program; PCP Nurse Practitioner
DX: S42.211A Unspecified displaced fracture of surgical neck of right humerus, initial encounter for closed fracture (principal); S82.251A Displaced comminuted fracture of shaft of right tibia, initial encounter for closed fracture; V28.49XA Other motorcycle driver injured in noncollision transport accident in traffic accident, initial encounter
CPT/HCPCS: 70450; 72125; 72170; 73030; 73060; 73070; 73562; 73590; 73700; 80053; 85007; 85025; 86803; 87389; 96361; 96374; 96375; 99285; J2405; J3010; J7120